=== PATIENT | male | born 1960 | race Two or more races ===

== ENCOUNTER 2020-07-23 09:16 | Emergency (ER) | payer SELFPAY ==
[2020-07-23 09:39] VITALS: BP 142/92; PULSE 82; RESP 16; TEMP 36.6; O2SAT 99; BMI 28.0
--- NOTE | 2020-07-23 10:00 | XR_ITS ---
EXAMINATION: XR SHOULDER, RIGHT CLINICAL INFORMATION: Right shoulder pain. COMPARISON: None TECHNIQUE: AP external rotation, Grashey, scapular Y, and axillary views of the right shoulder. FINDINGS: Mild to moderate right acromioclavicular degenerative joint changes are seen. There is normal joint alignment. The right glenohumeral joint is intact. The soft tissues are unremarkable. XR/XR shoulder RT min 2V IMPRESSION: Mild to moderate right acromioclavicular degenerative joint changes.
--- NOTE | 2020-07-23 10:07 | ED_ITS ---
HPI - Extremity Problem General Chief complaint: Extremity Injury, Upper Stated complaint: shoulder pain Time Seen by Provider: 07/23/20 09:56 Source: patient Mode of arrival: ambulatory Limitations: no limitations History of Present Illness HPI Narrative: 60yoM c No Sig PMHx presenting to the ED c c/o Atraumatic right shoulder pain for approximately 1 year after being bit by a tick. Reports he never followed up with a primary care provider or any healthcare provider after he was bit by the tick. Reports he has been having body aches all over his body and is concerned for Lyme disease and is requesting a Lyme titer at this time. Denies any additional complaints or concerns at this time. Related Data Previous Rx's Medication Instructions Recorded cyclobenzaprine 10 mg PO TID PRN #10 tab 07/23/20 doxycycline monohydrate 100 mg PO BID 14 Days #28 cap 07/23/20 naproxen 500 mg PO BID PRN #10 tab 07/23/20 oxycodone-acetaminophen [Percocet] 1 tab PO Q6H PRN #10 tab 07/23/20 Allergies Allergy/AdvReac Type Severity Reaction Status Date / Time No Known Allergies Allergy Unverified 05/22/20 14:54 Review of Systems Review of Systems: Constitutional : No Weight loss, No Fever, No Chills, No Night Sweats, No Fatigue Cardiovascular : No Chest Pain, No SOB Respiratory : No Cough, No Sputum, No Wheezing Gastrointestinal : No Nausea, No Vomiting, No abdominal Pain Genitourinary : No Dysuria Musculoskeletal : + joint pain, No Myalgias, No Joint Swelling Skin : No Skin Lesions, No rash Neuro : No Weakness, No Paresthesias, No Dizziness, No Headache Psych : No Anxiety/Panic, No Depression, No SI/HI/AH/VH, No Social Issues, Heme/Lymph: No Lymphadenopathy Endocrine : No Polyuria, No Polydipsia, No Temperature Intolerance Yes all other systems are reviewed and are negative [facility] Past Medical History Attestation statement: The following information was validated with the patient. Social History Social History Advance Directives: No Advance Directives Information Provided: Yes Physical Exam Vital Signs: Vital Signs: Last Vital Signs Temp 97.8 F 07/23/20 09:39 Pulse 82 07/23/20 09:39 Resp 16 11/18/20 09:39 BP 142/92 H 07/23/20 09:39 Pulse Ox 99 07/23/20 09:39 Body Mass Index 28.0 vital signs have been reviewed as normal and appeared to be correct. Blood pressure normal. Heart rate normal. Respiration rate normal. Temperature normal. Oxygen saturation normal. Appearance: Alert. Oriented X3. No acute distress. Head: Normal external exam. Normocephalic. Eyes: PERRLA. EOMI. Conjunctiva and sclera normal. Eyelids normal. ENT: Pharynx normal. Uvula midline. Moist mucous membranes. Neck: Normal inspection. Neck supple. FROM. No adenopathy. No meningeal signs. CVS: Normal heart rate and rhythm. Heart sound normal. No murmurs noted. Pulses normal throughout. Respiratory: No respiratory distress. Painless inspiration. Breath sounds normal. No wheezes/rales/rhonchi noted. Chest nontender. No accessory muscle usage noted or decreased air movement noted. Back: Full range of motion noted. Skin: Skin warm and dry. Normal skin color. Normal skin turgor. No rashes/lesions/lacerations noted. Extremities: TTP of right shoulder posterior aspect and scapular. Patient has full range of motion. No obvious deformities. No extremity edema noted. No rashes /lesions/induration/fluctuance or signs of infection noted. Extremities exhibit normal range of motion. All other Extremities nontender. Neuro: Oriented X 3. No motor deficit. No sensory deficit. Reflexes normal. Course Course Course Narrative: 10am - 60yoM c No Sig PMHx presenting to the ED c c/o Atraumatic right shoulder pain for approximately 1 year after being bit by a tick. Reports he never followed up with a primary care provider or any healthcare provider after he was bit by the tick. - Plan: CBC, BMP, Lyme titer and xray of right shoulder/scapular. Then re- evaluate. MDM - Extremity (Nontraumatic) Medical Records Attestation: I reviewed the patient's medical records. Lab Data Attestation: I reviewed the patient's lab results. Result diagrams: 07/23/20 10:13 07/23/20 10:13 Labs: Lab Results 07/23/20 07/23/20 Range/Units 10:13 10:13 WBC 5.4 (4.8-10.8) X10*3/uL RBC 5.14 (4.60-5.80) X10*6/uL Hgb 16.1 (14.0-18.0) g/dl Hct 46.7 (42-52) % MCV 90.9 (80-98) fL MCH 31.3 (27.0-33.0) pg MCHC 34.5 (31.0-36.0) g/dl RDW 11.9 (11.0-16.0) % Plt Count 259 (160-400) X10*3/uL MPV 8.6 L (9.4-12.4) fL Immature Gran % (Auto) 0.2 (0.0-0.4) % Neut % (Auto) 46.3 (45-73) % Lymph % (Auto) 36.5 (20-40) % [place] % (Auto) 8.2 (2-11) % Eos % (Auto) 8.2 H (0-4) % Baso % (Auto) 0.6 (0-2) % Lymph # (Auto) 2.0 (1.2-4.9) X10*3/uL [place] # (Auto) 0.4 (0.1-1.2) X10*3/uL Eos # (Auto) 0.4 (0.0-0.4) X10*3/uL Baso # (Auto) 0.0 (0.0-0.2) X10*3/uL Abs Immat Gran (auto) 0.01 (0.00-0.03) X10*3/uL Absolute Neuts (auto) 2.5 (2.0-8.3) X10*3/uL Absolute Nucleated RBC 0.000 (0.0-0.012) X10*3/uL Nucleated RBC % (auto) 0.0 (0.0-0.2) /100WBC Sodium 136 (135-145) mmol/L Potassium 4.6 (3.3-5.1) mmol/l Chloride 101 (96-108) mmol/L Carbon Dioxide 29 (22-29) mmol/L Anion Gap 11 L (12-20) BUN 15 (9-16) mg/dL Creatinine 0.96 (0.5-1.4) mg/dL Estim Creat Clear Calc 90.1 Estimated GFR > 60 Random Glucose 95 (60-115) mg/dL Calcium 9.4 (8.4-10.2) mg/dL Imaging Data right shoulder: Attestation: I personally reviewed and interpreted this imaging study as follows: Radiologist's impression: FINDINGS: Mild to moderate right acromioclavicular degenerative joint changes are seen. There is normal joint alignment. The right glenohumeral joint is intact. The soft tissues are unremarkable. XR/XR shoulder RT min 2V IMPRESSION: Mild to moderate right acromioclavicular degenerative joint changes. Discharge Plan Discharge Clinical Impression: Degenerative joint disease of acromioclavicular joint Tick bite Qualifiers: Encounter type: initial encounter Qualified Code(s): W57.XXXA - Bitten or stung by nonvenomous insect and other nonvenomous arthropods, initial encounter Patient Disposition: Home, Self-Care Instructions: Tick Bite (ED), Shoulder Pain (ED) Additional Instructions: I gave you a few different locations or you can call for primary care provider. Please call them today for future follow-up for your chronic shoulder pain right-sided for over a year and for any other complaints return if any new or worsening symptoms. Prescriptions: New cyclobenzaprine 10 mg tablet 10 mg PO TID PRN (Reason: muscle spasm) Qty: 10 RF: 0 oxycodone-acetaminophen [Percocet] 5-325 mg tablet 1 tab PO Q6H PRN (Reason: pain) Qty: 10 RF: 0 doxycycline monohydrate 100 mg capsule 100 mg PO BID 14 Days Qty: 28 RF: 0 naproxen 500 mg tablet 500 mg PO BID PRN (Reason: pain) Qty: 10 RF: 0 Referrals: [facility] [Provider Group] - 2 days [facility] [Provider Group] - 2 days [facility] - 2 days [facility] Group] - 2 days [facility] [Provider Group] - 2 days Print Language: Sami
[2020-07-23 10:28] LABS: MANUAL DIFF FLAG NO
[2020-07-23 10:30] LABS: Basophils Percent Auto 0.6 % (0-2); Eosinophils Absolute Auto 0.4 X10*3/uL (0.0-0.4); Eosinophils Percent Auto 8.2 % (0-4); Hematocrit 46.7 % (42-52); Hemoglobin 16.1 g/dl (14.0-18.0); Imm Gran Abs Auto 0.01 X10*3/uL (0.00-0.03); Imm Gran Pct Auto 0.2 % (0.0-0.4); Lymphocytes Percent Auto 36.5 % (20-40); Mean Corpuscular HGB Conc 34.5 g/dl (31.0-36.0); Mean Corpuscular Hemoglobin 31.3 pg (27.0-33.0); Mean Corpuscular Volume 90.9 fL (80-98); Mean Platelet Volume 8.6 fL (9.4-12.4); Monocytes Absolute Auto 0.4 X10*3/uL (0.1-1.2); Monocytes Percent Auto 8.2 % (2-11); Neutrophils Absolute Auto 2.5 X10*3/uL (2.0-8.3); Neutrophils Percent Auto 46.3 % (45-73); Platelet Count 259 X10*3/uL (160-400); Red Blood Count 5.14 X10*6/uL (4.60-5.80); Red Cell Distribution Width 11.9 % (11.0-16.0); White Blood Count 5.4 X10*3/uL (4.8-10.8)
[2020-07-23 11:07] LABS: Anion Gap 11 (12-20); Blood Urea Nitrogen 15 mg/dL (9-16); Calcium 9.4 mg/dL (8.4-10.2); Carbon Dioxide 29 mmol/L (22-29); Chloride 101 mmol/L (96-108); Creatinine Clr Calc Pharmacy 90.1; Estimated Glomerular Filt Rate > 60; Glucose Random 95 mg/dL (60-115); Potassium 4.6 mmol/l (3.3-5.1); Sodium 136 mmol/L (135-145)
[2020-07-24 08:37] LABS: Lyme Abs Screen <0.90 index
== END 2020-07-23 11:35 | disposition home or self-care (01) ==
PROVIDERS: Physician Assistant Medical; Emergency Provider Emergency Medicine
DX: S40.261A Insect bite (nonvenomous) of right shoulder, initial encounter (principal); M25.511 Pain in right shoulder; M19.011 Primary osteoarthritis, right shoulder; W57.XXXA Bitten or stung by nonvenomous insect and other nonvenomous arthropods, initial encounter; Y93.9 Activity, unspecified; Y92.9 Unspecified place or not applicable; Y99.9 Unspecified external cause status
CPT/HCPCS: 36415; 73030; 80048; 85025; 86618; 99283

== ENCOUNTER 2020-08-04 10:56 | Outpatient (REF) | payer SELFPAY | END 2020-08-04 10:57 | disposition home or self-care (01) | LOC: HO.LAB 10:56 | PROVIDERS: Visit Provider Internal Medicine | DX: Z20.828 Contact with and (suspected) exposure to other viral communicable diseases (principal) | CPT/HCPCS: C9803; U0003 ==

== ENCOUNTER 2021-06-08 08:29 | Emergency (ER) | payer OTHER, SELFPAY ==
[2021-06-08 08:48] VITALS: BP 130/89; PULSE 87; RESP 16; TEMP 36; O2SAT 98; BMI 25.9
--- NOTE | 2021-06-08 09:31 | ED.EAR ---
HPI - Ear Problem General Chief complaint: Ear Problems Stated complaint: congestion, ear pain Time Seen by Provider: 06/08/21 09:12 Source: patient Mode of arrival: ambulatory Limitations: no limitations History of Present Illness MD Complaint: ear pain and ear discharge Duration: constant Severity: moderate Relieving factors: nothing Exacerbating factors: nothing Discharge from ear: yes - clear and yes - bloody Associated symptoms ear: decreased hearing, rhinorrhea and other (Nasal drip and productive cough with yellow-colored sputum) Treatment prior to arrival: none Related Data Previous Rx's Medication Instructions Recorded cyclobenzaprine 10 mg tablet 10 mg PO TID PRN #10 tab 07/23/20 doxycycline monohydrate 100 mg 100 mg PO BID 14 Days #28 cap 07/23/20 capsule naproxen 500 mg tablet 500 mg PO BID PRN #10 tab 07/23/20 oxycodone-acetaminophen 5 mg-325 1 tab PO Q6H PRN #10 tab 07/23/20 mg tablet (Percocet) amoxicillin 875 mg-potassium 1 tab PO BID 14 Days #28 tab 06/08/21 clavulanate 125 mg tablet (Augmentin) benzonatate 100 mg capsule 100 mg PO BID PRN #14 cap 06/08/21 (Tessalon Perles) loratadine 10 mg tablet (Claritin) 10 mg PO DAILY PRN #14 tab 06/08/21 Allergies Allergy/AdvReac Type Severity Reaction Status Date / Time No Known Allergies Allergy Unverified 05/22/20 14:54 Review of Systems Review of Systems: Constitutional : No Weight loss, No Fever, No Chills, No Night Sweats, No Fatigue, No Malaise ENT/Mouth : Positive bilateral ear pain with decreased hearing and discharge from the right ear bloody discharge, positive nasal congestion/rhinorrhea with postnasal drip, Hearing loss,No Sinus Pain, No Hoarseness, No sore throat, No Swallowing Difficulty Eyes: No Eye Pain, No Swelling, No Redness, No Foreign Body, No Discharge, No Vision Changes Cardiovascular : No Chest Pain, No SOB, No Dyspnea on Exertion, No Orthopnea, No Edema, No Palpitations Respiratory : Positive cough with yellow color sputum production, No Wheezing, No Smoke Exposure, No Dyspnea Gastrointestinal : No Nausea, No Vomiting, No Diarrhea, No Constipation, No abdominal Pain, No Hematochezia, No Melena Genitourinary : no irregular bleeding, No Dysuria, No Urinary Frequency, No Hematuria, No Urinary Incontinence, No Urgency, No Flank Pain, No Urinary Flow Changes, No Hesitancy Musculoskeletal : No joint pain, No Myalgias, No Joint Swelling Skin : No Skin Lesions, No rash Neuro : No Weakness, No Numbness, No Paresthesias, No Loss of Consciousness, No Dizziness, No Headache Psych : No Anxiety/Panic, No Depression, No SI/HI/AH/VH, No Social Issues, Heme/Lymph: No Bruising, No Bleeding,No Lymphadenopathy Endocrine : No Polyuria, No Polydipsia, No Temperature Intolerance Yes all other systems are reviewed and are negative [facility] Past Medical History Attestation statement: The following information was validated with the patient. Social History Social History Advance Directives: No Physical Exam Vital Signs: Vital Signs: Last Vital Signs Temp 96.8 F 06/08/21 08:48 Pulse 87 06/08/21 08:48 Resp 16 06/08/21 08:48 BP 130/89 06/08/21 08:48 Pulse Ox 98 06/08/21 08:48 Body Mass Index 25.9 vital signs have been reviewed as normal and appeared to be correct. Blood pressure hypertensive 147/76 Heart rate normal. Respiration rate normal. Temperature normal. Oxygen saturation normal. Appearance: Alert. Oriented X3. No acute distress. Head: Normal external exam. Normocephalic. Atraumatic. Eyes: PERRLA. EOMI. Conjunctiva and sclera normal. Eyelids normal. ENT: Left tympanic membrane erythematous with bulging with fluid behind the eardrum consistent with otitis media. External ear canal of the left is normal. Right external ear canal mildly edematous with bloody discharge noted and tympanic membrane is perforated. No foreign bodies are noted. Posterior Pharynx normal. Uvula midline. Moist mucous membranes. No trismus/drooling noted. No stridor noted. No sinus pressure noted. Neck: Normal inspection. Neck supple. FROM. CVS: Normal heart rate and rhythm. Respiratory: No respiratory distress. Painless inspiration. Lungs clear to auscultation. No wheezes/rales/rhonchi. Chest nontender. No accessory muscle use is noted. Skin: Skin warm and dry. Normal skin color. Normal skin turgor. No rashes/lesions/lacerations noted. Extremities: Extremities exhibit normal range of motion. Extremities nontender. Neuro: Oriented X 3. No motor deficit. No sensory deficit. Reflexes normal. Normal steady gait. No focal neuro deficits noted. Vascular: + radial pulses/+ 2 distal pedal pulses/+2 dorsalis pedis b/l. Normal cap refill. No cyanosis noted to upper extremity nails and lower extremity toes nails. Course Course Course Narrative: Patient with bilateral otitis media with right-sided tympanic membrane perforation. No foreign bodies are noted. Will DC home with antibiotics and symptomatic treatment and referral to ear nose and throat along with instructions return if any new or worsening symptoms to follow up with primary care provider. Patient understands agrees with this plan. MDM - Ear Medical Records Attestation: I reviewed the patient's medical records. Discharge Plan Discharge Clinical Impression: Otitis media, Otitis externa, Perforation of right tympanic membrane Patient Disposition: Home, Self-Care Instructions: Otitis Externa (ED), Ruptured Eardrum (ED), Ear Infection (ED) Prescriptions: New amoxicillin-pot clavulanate [Augmentin] 875-125 mg tablet 1 tab PO BID 14 Days Qty: 28 RF: 0 benzonatate [Tessalon Perles] 100 mg capsule 100 mg PO BID PRN (Reason: cough) Qty: 14 RF: 0 loratadine [Claritin] 10 mg tablet 10 mg PO DAILY PRN (Reason: allergies) Qty: 14 RF: 0 No Action cyclobenzaprine 10 mg tablet 10 mg PO TID PRN (Reason: muscle spasm) Qty: 10 RF: 0 oxycodone-acetaminophen [Percocet] 5-325 mg tablet 1 tab PO Q6H PRN (Reason: pain) Qty: 10 RF: 0 doxycycline monohydrate 100 mg capsule 100 mg PO BID 14 Days Qty: 28 RF: 0 naproxen 500 mg tablet 500 mg PO BID PRN (Reason: pain) Qty: 10 RF: 0 Referrals: Nic Triplett [Physician] - 2 days Stand Alone Forms: Work/School Release Print Language: Amharic
== END 2021-06-08 09:42 | disposition home or self-care (01) ==
PROVIDERS: Emergency Provider Emergency Medicine
DX: H66.91 Otitis media, unspecified, right ear (principal); H60.91 Unspecified otitis externa, right ear; H72.91 Unspecified perforation of tympanic membrane, right ear; H92.03 Otalgia, bilateral; Z79.899 Other long term (current) drug therapy
CPT/HCPCS: 99283

== ENCOUNTER 2022-12-08 12:36 | Emergency (ER) | payer OTHER, SELFPAY ==
--- NOTE | ~2022-12-08 | XR_ITS ---
EXAMINATION: XR CHEST CLINICAL INFORMATION: Shortness of breath COMPARISON: None available. TECHNIQUE: 2 views of the chest were obtained. FINDINGS: The cardiac and mediastinal contours are normal. The lungs are clear. No pleural effusion or pneumothorax. Degenerative changes of the spine. XR/XR chest 2V IMPRESSION: No evidence for acute disease in the chest.
[2022-12-08 13:11] VITALS: BP 155/91; PULSE 82; RESP 18; TEMP 36.8; O2SAT 100; BMI 27.3
--- NOTE | 2022-12-08 13:11 | ED_ITS ---
HPI - SOB/Dyspnea General Chief Complaint: General Medical <RADHA Marinelli - Last Filed: 12/08/22 13:15> Stated Complaint: SOB <RADHA Marinelli - Last Filed: 12/08/22 13:15> Time Seen by Provider: 12/08/22 14:29 <RADHA Marinelli - Last Filed: 12/08/22 13:15> Source: patient <RADHA Barrios - Last Filed: 12/08/22 16:20> Mode of arrival: ambulatory <RADHA Barrios - Last Filed: 12/08/22 16:20> Limitations: no limitations <RADHA Barrios Last Filed: 12/08/22 16:20> History of Present Illness HPI Narrative: Patient is a 62 year old assigned male at presenting to the emergency department today with intermittent difficulty breathing over the past month. Patient states that he went to [place] in October and when he returned in November he began having intermittent difficulty breathing and congestion. 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 He denies any medical problems but endorses occasional seasonal allergies in the summer. Patient denies any dizziness, lightheadedness, abdominal pain, nausea, vomiting, fever, chills, blurry vision, double vision, loss of vision, chest pain, back pain, night sweats, pain with urination, increased urinary frequency, increased urinary urgency, blood in his urine or stool, syncope or a near syncopal episode, recent trauma or falls, bowel incontinence, bladder incontinence, bowel retention, blad lola retention, or any other complaints at this time. <RADHA Barrios - Last Filed: 12/08/22 16:20> MD elicited complaint: shortness of breath <RADHA Barrios - Last Filed: 12/08/22 16:20> Pertinent past history: other (seasonal allergies) <RADHA Barrios - Last Filed: 12/08/22 16:20> Onset (ago): month(s) (1) <RADHA Barrios - Last Filed: 12/08/22 16:20> Timing: intermittent <RADHA Barrios - Last Filed: 12/08/22 16:20> Exacerbating factors: warm air and other (work at [employer]) <RADHA Barrios - Last Filed: 12/08/22 16:20> Relieving factors: cool air and other (nasal spray) <RADHA Barrios - Last Filed: 12/08/22 16:20> Associated symptoms: sputum production <RADHA Barrios - Last Filed: 12/08/22 16:20> Related Data Home Medications: Previous Rx's Medication Instructions Recorded cyclobenzaprine 10 mg tablet 10 mg PO TID PRN muscle spasm #10 07/23/20 tabs doxycycline monohydrate 100 mg 100 mg PO BID 14 days #28 caps 07/23/20 capsule naproxen 500 mg tablet 500 mg PO BID PRN pain #10 tabs 07/23/20 oxycodone-acetaminophen 5 mg-325 1 tab PO Q6H PRN pain #10 tabs 07/23/20 mg tablet (Percocet) amoxicillin 875 mg-potassium 1 tab PO BID 14 days #28 tabs 06/08/21 clavulanate 125 mg tablet (Augmentin) benzonatate 100 mg capsule 100 mg PO BID PRN cough #14 caps 06/08/21 (Tessalon Perles) loratadine 10 mg tablet (Claritin) 10 mg PO DAILY PRN allergies #14 06/08/21 tabs albuterol sulfate 90 mcg/actuation 1 inh inhalation QID PRN shortness 12/08/22 aerosol inhaler (ProAir HFA) of breath or wheezing #8.5 grams prednisone 20 mg tablet 20 mg PO DAILY 7 days #7 tabs 12/08/22 <RADHA Marinelli - Last Filed: 12/08/22 13:15> Allergies/Adverse Reactions: Allergies Allergy/AdvReac Type Severity Reaction Status Date / Time No Known Allergies Allergy Unverified 05/22/20 14:54 <RADHA Marinelli - Last Filed: 12/08/22 13:15> Review of Systems Review of Systems: Yes all other systems are reviewed and are negative <RADHA Barrios - Last Filed: 12/08/22 16:20> Constitutional: Constitutional: Reports no additional constitutional complaints, Denies chills, Denies fever(s) and Denies night sweats <RADHA Barrios - Last Filed: 12/08/22 16:20> Eyes: Eyes: Reports no additional eye complaints, Denies blurry vision, Denies change in vision, Denies diplopia, Denies eye discharge, Denies loss of vision and Denies eye pain <RADHA Barrios - Last Filed: 12/08/22 16:20> ENT: Denies dizziness <RADHA Barrios Last Filed: 12/08/22 16:20> Cardiovascular: Cardiovascular: Reports no additional cardiovascular complaints, Denies chest pain, Denies lightheadedness, Denies Loss of Consciousness and Reports dyspnea (intermittently) <RADHA Barrios - Last Filed: 12/08/22 16:20> Respiratory: Respiratory: Reports no additional respiratory complaints and Reports dyspnea (intermittently) <RADHA Barrios - Last Filed: 12/08/22 16:20> Gastrointestinal: Gastrointestinal: Reports no additional gastrointestinal complaints, Denies abdominal pain, Denies melena, Denies hematochezia, Denies change in bowel habits and Denies change in stool character <RADHA Barrios - Last Filed: 12/08/22 16:20> Genitourinary: Genitourinary: Reports no additional male genitourinary complaints, Denies hematuria, Denies oliguria, Denies difficulty urinating, Denies dysuria, Denies urinary frequency, Denies urinary hesitancy, Denies urinary incontinence and Denies urinary urgency <RADHA Barrios Last Filed: 12/08/22 16:20> Musculoskeletal: Musculoskeletal: Reports no additional musculoskeletal complaints, Denies numbness and Denies tingling <RADHA Barrios - Last Filed: 12/08/22 16:20> Neurologic: Denies dizziness, Denies loss of vision, Denies numbness and Denies tingling <RADHA Barrios Last Filed: 12/08/22 16:20> Psychiatric: Psychiatric: Reports no additional psychiatric complaints <RADHA Barrios - Last Filed: 12/08/22 16:20> Endocrine: Endocrine: Reports no additional endocrine complaints <RADHA Barrios Last Filed: 12/08/22 16:20> Hematologic/Lymphatic: Hematologic/Lymphatic: Reports no additional hematologic/lymphatic complaints <RADHA Barrios - Last Filed: 01/25 16:20> Allergic/Immunologic: Allergic/Immunologic: Reports no additional allergic/immunologic complaints <RADHA Barrios - Last Filed: 12/08/22 16:20> PMFSH Past Medical History Attestation statement: The following information was validated with the patient. <ARDHA Barrios - Last Filed: 12/08/22 16:20> Source: old records reviewed and nursing notes reviewed <RADHA Barrios - Last Filed: 12/08/22 16:20> Social History Social History: Social History Advance Directives: No Advance Directives Information Provided: Yes <RADHA Marinelli - Last Filed: 12/08/22 13:15> Physical Exam Vital Signs: Vital Signs: Last Vital Signs Temp 97.8 F 12/08/22 15:59 Pulse 72 12/08/22 15:59 Resp 16 12/08/22 15:59 BP 146/91 H 12/08/22 15:59 Pulse Ox 97 12/08/22 15:59 O2 Del Method Room Air 12/08/22 15:59 BMI result Body Mass Index 27.3 <RADHA Marinelli - Last Filed: 12/08/22 13:15> Vital Signs: Last Vital Signs Temp 97.8 F 12/08/22 15:59 Pulse 72 12/08/22 15:59 Resp 16 12/08/22 15:59 BP 146/91 H 12/08/22 15:59 Pulse Ox 97 12/08/22 15:59 O2 Del Method Room Air 12/08/22 15:59 BMI result Body Mass Index 27.3 <RADHA Barrios - Last Filed: 12/08/22 16:20> Const: General: cooperative, no acute distress, alert and awake <RADHA Barrios - Last Filed: 12/08/22 16:20> Nutritional Appearance: well nourished <RADHA Barrios - Last Filed: 12/08/22 16:20> Orientation/consciousness: patient oriented x3 <RADHA Barrios - Last Filed: 12/08/22 16:20> Limitations: no limitations <Harriet Reardon [facility] Last Filed: 12/08/22 16:20> HEENT: Head: Yes normal to inspection and Yes atraumatic <Harriet Reardon [facility] Last Filed: 12/08/22 16:20> Ears: hearing grossly normal bilaterally and external ears normal <Harriet Reardon [facility] Last Filed: 12/08/22 16:20> General nose exam: Normal external nose present, Normal nares present, No nasal polyps present, Normal nasal mucous membranes and turbinates present, Normal septum present and No nasal discharge present <Harriet Reardon [facility] Last Filed: 12/08/22 16:20> Face and sinus: Yes normal facial exam, Yes sinuses nontender and Yes face symmetric <Harriet Reardon [facility] Last Filed: 12/08/22 16:20> Mouth: Normal oral and palatal mucosa present, no drooling and no muffled voice <Harriet Reardon [facility] Last Filed: 12/08/22 16:20> Eyes: General: appearance normal, both eyes and all related structures <Harriet Reardon [facility] Last Filed: 12/08/22 16:20> Periorbital: periorbital findings normal <Harriet Reardon [facility] Last Filed: 12/08/22 16:20> Eyelids: Yes eyelids normal <Harriet Reardon [facility] Last Filed: 12/08/22 16:20> Conjunctivae: conjunctivae normal <Harriet Reardon [facility] Last Filed: 12/08/22 16:20> Pupils: Equal, round and reactive pupils present <Harriet Reardon [facility] Last Filed: 12/08/22 16:20> EOM: EOMs intact bilaterally <Harriet Reardon [facility] Last Filed: 12/08/22 16:20> Neck: Neck: Yes normal visual inspection, Yes full ROM and Yes no lymphadenopathy <RADHA Barrios Last Filed: 12/08/22 16:20> Chest: Chest palpation & inspection: normal inspection of the chest <RADHA Barrios Last Filed: 12/08/22 16:20> Resp: Effort & Inspection: normal respiratory effort and able to speak in complete sentences <RADHA Barrios - Last Filed: 12/08/22 16:20> Auscultation: clear to auscultation bilaterally, no crackles, no rales, no rhonchi and no wheezes <Harriet Acostasunday CT - Last Filed: 12/08/22 16:20> Cardio: Rate: regular rate <Harriet Acostasunday [facility] Last Filed: 12/08/22 16:20> Rhythm: regular rhythm <Harriet Acostasunday CT - Last Filed: 12/08/22 16:20> Heart sounds: S1 normal heart sound present, S2 normal heart sound present, no gallops, no murmurs and no rubs <Harriet Acostasunday CT - Last Filed: 12/08/22 16:20> GI: Inspection: Yes normal to inspection <Harrietgucci Acostasunday CT - Last Filed: 12/08/22 16:20> Neuro: General: patient oriented x3 <Harrietgucci Acostasunday [facility] Last Filed: 12/08/22 16:20> Cranial nerves: Yes Equal, round and reactive pupils present <Harriet Acostasunday [facility] Last Filed: 12/08/22 16:20> Cognition (Neuro): normal cognition <Harriet Acostasunday [facility] Last Filed: 12/08/22 16:20> Motor exam (neuro): 5/5 motor strength present throughout <Harriet Acostasunday [facility] Last Filed: 12/08/22 16:20> Sensory Exam: Normal double simultaneous stimulation for sensation <Harrietgucci Acostasunday [facility] Last Filed: 12/08/22 16:20> Coordination: [id number] test normal <Harrietgucci Acostasunday [facility] Last Filed: 12/08/22 16:20> Extrem: General: Yes normal to inspection, Yes full ROM and Yes capillary refill normal <Harriet Acostasunday CT - Last Filed: 12/08/22 16:20> Psych: Appearance: grossly normal <Harriet RADHA Reardon - Last Filed: 12/08/22 16:20> Mental Status: mental status grossly normal <Harriet Alexys PA Last Filed: 12/08/22 16:20> Affect: normal affect <RADHA Barrios Last Filed: 12/08/22 16:20> Attitude: cooperative <RADHA Barrios Last Filed: 12/08/22 16:20> Thought process: Normal thought process present <RADHA Barrios Last Filed: 12/08/22 16:20> Thought content: Normal thought content present <RADHA Barrios Last Filed: 12/08/22 16:20> Insight: Good insight present (Psych) <RADHA Barrios Last Filed: 12/08/22 16:20> Course Course Course Narrative: RME - 62 yo male with history of depression/anxiety who presents to the ER for evaluation of worsening difficulty breathing for the last 1 month. 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 Has chest pain when he has difficulty breathing. No history of asthma or COPD. Non-smoker VSS in triage. Lungs clear in triage, speaking in complete sentences. Plan for CXR, EKG and lab workup. <RADHA Marinelli - Last Filed: 12/08/22 13:15> Medical Decision Making Medical Decision Making [facility] Narrative: Patient is a 62 year old assigned male at with a history of seasonal allergies presenting to the emergency department today with intermittent difficulty breathing for the past month. Patient's physical exam was unre markable. Patient's chest x-ray showed no acute process. I explained my physical exam findings as well as all test results to the patient. I answered all questions asked by the patient. I stressed the importance of the patient taking his medication as prescribed. I stressed the importance of the patient following up with his primary care provider. I stressed the importance of the patient returning to the emergency department immediately if his symptoms were to worsen or if he were to develop any dizziness, shortness of breath, difficulty breathing, chest pain, blurry vision, loss of vision, nausea, vomiting, abdominal pain, fever, chills, back pain, or any other complaints. Patient verbalized agreement and understanding with this treatment plan and discharge. <RADHA Barrios Last Filed: 12/08/22 16:20> Differential Diagnosis Differential Diagnoses: The differential diagnosis associated with the presentation includes <RADHA Barrios Last Filed: 12/08/22 16:20> allergies, asthma <RADHA Barrios Last Filed: 12/08/22 16:20> Lab Data [facility] Lab Attestation statement: I reviewed the patient's lab results. <RADHA Barrios - Last Filed: 12/08/22 16:20> Result Diagrams: 12/08/22 13:24 12/08/22 13:24 <RADHA Marinelli - Last Filed: 12/08/22 13:15> Labs: Lab Results 12/08/22 12/08/22 12/08/22 Range/Units 13:24 13:24 13:24 WBC 5.8 (4.8-10.8) X10*3/uL RBC 5.44 (4.60-5.80) X10*6/uL Hgb 16.8 (14.0-18.0) g/dl Hct 49.5 (42.0-52.0) % MCV 91.0 (80.0-98.0) fL MCH 30.9 (27.0-33.0) pg MCHC 33.9 (31.0-36.0) g/dl RDW 12.2 (11.0-16.0) % Plt Count 276 (160-400) X10*3/uL MPV 8.4 L (9.4-12.4) fL Immature Gran % (Auto) 0.2 (0.0-0.4) % Neut % (Auto) 52.5 (45-73) % Lymph % (Auto) 33.6 (20-40) % Scott % (Auto) 6.8 (2-11) % Eos % (Auto) 6.4 H (0-4) % Baso % (Auto) 0.5 (0-2) % Lymph # (Auto) 1.9 (1.2-4.9) X10*3/uL Scott # (Auto) 0.4 (0.1-1.2) X10*3/uL Eos # (Auto) 0.4 (0.0-0.4) X10*3/uL Baso # (Auto) 0.0 (0.0-0.2) X10*3/uL Abs Immat Gran (auto) 0.01 (0.00-0.03) X10*3/uL Absolute Neuts (auto) 3.0 (2.0-8.3) x10*3/uL Absolute Nucleated RBC 0.000 (0.0-0.012) X10*3/uL Nucleated RBC % (auto) 0.0 (0.0-0.2) /100WBC Sodium 142 (135-145) mmol/L Potassium 4.6 (3.3-5.1) mmol/L Chloride 103 (96-108) mmol/L Carbon Dioxide 31 H (22-29) mmol/L Anion Gap 13 (12-20) BUN 19 H (9-16) mg/dL Creatinine 1.01 (0.5-1.4) mg/dL Estim Creat Clear Calc 76.8 Estimated GFR > 60 Random Glucose 98 (60-115) mg/dL Calcium 10.1 D (8.4-10.2) mg/dL Magnesium 2.2 (1.6-2.6) mg/dL Total Bilirubin 1.1 H (0.0-1.0) mg/dL Direct Bilirubin 0.2 (0.0-0.5) mg/dL AST 20 (5-37) U/L ALT 13 (0-40) U/L Alkaline Phosphatase 83 (39-117) U/L Troponin I High Sens (<3.5-35.0) ng/L B-Natriuretic Peptide < 10 (<100) pg/mL Total Protein 7.6 (6.5-8.0) g/dL Albumin 4.5 (3.5-5.0) g/dL 12/08/22 Range/Units 13:24 WBC (4.8-10.8) X10*3/uL RBC (4.60-5.80) X10*6/uL Hgb (14.0-18.0) g/dl Hct (42.0-52.0) % MCV (80.0-98.0) fL MCH (27.0-33.0) pg MCHC (31.0-36.0) g/dl RDW (11.0-16.0) % Plt Count (160-400) X10*3/uL MPV (9.4-12.4) fL Immature Gran % (Auto) (0.0-0.4) % Neut % (Auto) (45-73) % Lymph % (Auto) (20-40) % Scott % (Auto) (2-11) % Eos % (Auto) (0-4) % Baso % (Auto) (0-2) % Lymph # (Auto) (1.2-4.9) X10*3/uL Scott # (Auto) (0.1-1.2) X10*3/uL Eos # (Auto) (0.0-0.4) X10*3/uL Baso # (Auto) (0.0-0.2) X10*3/uL Abs Immat Gran (auto) (0.00-0.03) X10*3/uL Absolute Neuts (auto) (2.0-8.3) x10*3/uL Absolute Nucleated RBC (0.0-0.012) X10*3/uL Nucleated RBC % (auto) (0.0-0.2) /100WBC Sodium (135-145) mmol/L Potassium (3.3-5.1) mmol/L Chloride (96-108) mmol/L Carbon Dioxide (22-29) mmol/L Anion Gap (12-20) BUN (9-16) mg/dL Creatinine (0.5-1.4) mg/dL Estim Creat Clear Calc Estimated GFR Random Glucose (60-115) mg/dL Calcium (8.4-10.2) mg/dL Magnesium (1.6-2.6) mg/dL Total Bilirubin (0.0-1.0) mg/dL Direct Bilirubin (0.0-0.5) mg/dL AST (5-37) U/L ALT (0-40) U/L Alkaline Phosphatase (39-117) U/L Troponin I High Sens < 2.7 (<3.5-35.0) ng/L B-Natriuretic Peptide (<100) pg/mL Total Protein (6.5-8.0) g/dL Albumin (3.5-5.0) g/dL <RADHA Marinelli - Last Filed: 12/08/22 13:15> Lab Results 12/08/22 12/08/22 12/08/22 Range/Units 13:24 13:24 13:24 WBC 5.8 (4.8-10.8) X10*3/uL RBC 5.44 (4.60-5.80) X10*6/uL Hgb 16.8 (14.0-18.0) g/dl Hct 49.5 (42.0-52.0) % MCV 91.0 (80.0-98.0) fL MCH 30.9 (27.0-33.0) pg MCHC 33.9 (31.0-36.0) g/dl RDW 12.2 (11.0-16.0) % Plt Count 276 (160-400) X10*3/uL MPV 8.4 L (9.4-12.4) fL Immature Gran % (Auto) 0.2 (0.0-0.4) % Neut % (Auto) 52.5 (45-73) % Lymph % (Auto) 33.6 (20-40) % Scott % (Auto) 6.8 (2-11) % Eos % (Auto) 6.4 H (0-4) % Baso % (Auto) 0.5 (0-2) % Lymph # (Auto) 1.9 (1.2-4.9) X10*3/uL Scott # (Auto) 0.4 (0.1-1.2) X10*3/uL Eos # (Auto) 0.4 (0.0-0.4) X10*3/uL Baso # (Auto) 0.0 (0.0-0.2) X10*3/uL Abs Immat Gran (auto) 0.01 (0.00-0.03) X10*3/uL Absolute Neuts (auto) 3.0 (2.0-8.3) x10*3/uL Absolute Nucleated RBC 0.000 (0.0-0.012) X10*3/uL Nucleated RBC % (auto) 0.0 (0.0-0.2) /100WBC Sodium 142 (135-145) mmol/L Potassium 4.6 (3.3-5.1) mmol/L Chloride 103 (96-108) mmol/L Carbon Dioxide 31 H (22-29) mmol/L Anion Gap 13 (12-20) BUN 19 H (9-16) mg/dL Creatinine 1.01 (0.5-1.4) mg/dL Estim Creat Clear Calc 76.8 Estimated GFR > 60 Random Glucose 98 (60-115) mg/dL Calcium 10.1 D (8.4-10.2) mg/dL Magnesium 2.2 (1.6-2.6) mg/dL Total Bilirubin 1.1 H (0.0-1.0) mg/dL Direct Bilirubin 0.2 (0.0-0.5) mg/dL AST 20 (5-37) U/L ALT 13 (0-40) U/L Alkaline Phosphatase 83 (39-117) U/L Troponin I High Sens (<3.5-35.0) ng/L B-Natriuretic Peptide < 10 (<100) pg/mL Total Protein 7.6 (6.5-8.0) g/dL Albumin 4.5 (3.5-5.0) g/dL 12/08/22 Range/Units 13:24 WBC (4.8-10.8) X10*3/uL RBC (4.60-5.80) X10*6/uL Hgb (14.0-18.0) g/dl Hct (42.0-52.0) % MCV (80.0-98.0) fL MCH (27.0-33.0) pg MCHC (31.0-36.0) g/dl RDW (11.0-16.0) % Plt Count (160-400) X10*3/uL MPV (9.4-12.4) fL Immature Gran % (Auto) (0.0-0.4) % Neut % (Auto) (45-73) % Lymph % (Auto) (20-40) % Scott % (Auto) (2-11) % Eos % (Auto) (0-4) % Baso % (Auto) (0-2) % Lymph # (Auto) (1.2-4.9) X10*3/uL Scott # (Auto) (0.1-1.2) X10*3/uL Eos # (Auto) (0.0-0.4) X10*3/uL Baso # (Auto) (0.0-0.2) X10*3/uL Abs Immat Gran (auto) (0.00-0.03) X10*3/uL Absolute Neuts (auto) (2.0-8.3) x10*3/uL Absolute Nucleated RBC (0.0-0.012) X10*3/uL Nucleated RBC % (auto) (0.0-0.2) /100WBC Sodium (135-145) mmol/L Potassium (3.3-5.1) mmol/L Chloride (96-108) mmol/L Carbon Dioxide (22-29) mmol/L Anion Gap (12-20) BUN (9-16) mg/dL Creatinine (0.5-1.4) mg/dL Estim Creat Clear Calc Estimated GFR Random Glucose (60-115) mg/dL Calcium (8.4-10.2) mg/dL Magnesium (1.6-2.6) mg/dL Total Bilirubin (0.0-1.0) mg/dL Direct Bilirubin (0.0-0.5) mg/dL AST (5-37) U/L ALT (0-40) U/L Alkaline Phosphatase (39-117) U/L Troponin I High Sens < 2.7 (<3.5-35.0) ng/L B-Natriuretic Peptide (<100) pg/mL Total Protein (6.5-8.0) g/dL Albumin (3.5-5.0) g/dL <RADHA Barrios - Last Filed: 12/08/22 16:20> Independent Interpretation I performed an independent interpretation of an: Plain X-Ray <RADHA Barrios - Last Filed: 12/08/22 16:20> Interpretation: My interpretation is in agreement with the radiologist's impression of this imaging study. EXAMINATION: XR CHEST CLINICAL INFORMATION: Shortness of breath COMPARISON: None available. TECHNIQUE: 2 views of the chest were obtained. FINDINGS: The cardiac and mediastinal contours are normal. The lungs are clear. No pleural effusion or pneumothorax. Degenerative changes of the spine. XR/XR chest 2V IMPRESSION: No evidence for acute disease in the chest. Dictated By: Patsy Nelson MD Signed By: Electronically signed by Patsy Nelson MD 12/08/22 1538 <RADHA Barrios - Last Filed: 12/08/22 16:20> Discharge Plan Discharge Clinical Impression: Reactive airway disease <RADHA Marinelli - Last Filed: 12/08/22 13:15> Patient Disposition: Home, Self-Care <RADHA Marinelli - Last Filed: 12/08/22 13:15> Instructions: How Your Lungs Work (ED) <RADHA Marinelli - Last Filed: 12/08/22 13:15> Additional Instructions: Follow up with your primary care provider. Return to the emergency department immediately if your symptoms worsen or if you develop any dizziness, shortness of breath, difficulty breathing, chest pain, blurry vision, loss of v ision, nausea, vomiting, abdominal pain, fever, chills, back pain, or any other complaints. <RADHA Marinelli - Last Filed: 12/08/22 13:15> Prescriptions: New prednisone 20 mg tablet 20 mg PO DAILY 7 Days Qty: 7 0RF albuterol sulfate [ProAir HFA] 90 mcg/actuation HFA aerosol inhaler 1 inh inhalation QID PRN (Reason: shortness of breath or wheezing) Qty: 8.5 0RF No Action cyclobenzaprine 10 mg tablet 10 mg PO TID PRN (Reason: muscle spasm) Qty: 10 0RF oxycodone-acetaminophen [Percocet] 5-325 mg tablet 1 tab PO Q6H PRN (Reason: pain) Qty: 10 0RF doxycycline monohydrate 100 mg capsule 100 mg PO BID 14 Days Qty: 28 0RF naproxen 500 mg tablet 500 mg PO BID PRN (Reason: pain) Qty: 10 0RF amoxicillin-pot clavulanate [Augmentin] 875-125 mg tablet 1 tab PO BID 14 Days Qty: 28 0RF benzonatate [Tessalon Perles] 100 mg capsule 100 mg PO BID PRN (Reason: cough) Qty: 14 0RF loratadine [Claritin] 10 mg tablet 10 mg PO DAILY PRN (Reason: allergies) Qty: 14 0RF <RADHA Marinelli - Last Filed: 12/08/22 13:15> Referrals: [facility] [place] Family Medicine [Provider Group] (Call to establish and follow up with a primary care provider. If you already have a primary care provider, please follow up with them.) [facility] [place] Primary Care, Ryan [Provider Group] (Call to establish and follow up with a primary care provider. If you already have a primary care provider, please follow up with them.) [facility] [place] Primary Care,Sukhdeep [Provider Group] (Call to establish and follow up with a primary care provider. If you already have a primary care provider, please follow up with them.) <RADHA Marinelli - Last Filed: 12/08/22 13:15> Stand Alone Forms: Work/School Release <RADHA Marinelli - Last Filed: 12/08/22 13:15> Print Language: Grenadian <RADHA Marinelli - Last Filed: 12/08/22 13:15>
--- NOTE | 2022-12-08 13:12 | ECG_ITS ---
Test Reason : sob Blood Pressure : / mmHG Vent. Rate : 065 BPM Atrial Rate : 065 BPM P-R Int : 158 ms QRS Dur : 076 ms QT Int : 374 ms P-R-T Axes : 046 023 039 degrees QTc Int : 388 ms Normal sinus rhythm Normal ECG When compared with ECG of 26-SEP-2012 10:50, No significant change was found Referred By: Natalia Stringer Electronically Signed By:AUGUSTUS BRUNO MD
[2022-12-08 13:33] LABS: MANUAL DIFF FLAG NO
[2022-12-08 13:36] LABS: Basophils Percent Auto 0.5 % (0-2); Eosinophils Absolute Auto 0.4 X10*3/uL (0.0-0.4); Eosinophils Percent Auto 6.4 % (0-4); Hematocrit 49.5 % (42.0-52.0); Hemoglobin 16.8 g/dl (14.0-18.0); Imm Gran Abs Auto 0.01 X10*3/uL (0.00-0.03); Imm Gran Pct Auto 0.2 % (0.0-0.4); Lymphocytes Absolute Auto 1.9 X10*3/uL (1.2-4.9); Lymphocytes Percent Auto 33.6 % (20-40); Mean Corpuscular HGB Conc 33.9 g/dl (31.0-36.0); Mean Corpuscular Hemoglobin 30.9 pg (27.0-33.0); Mean Platelet Volume 8.4 fL (9.4-12.4); Monocytes Absolute Auto 0.4 X10*3/uL (0.1-1.2); Monocytes Percent Auto 6.8 % (2-11); Neutrophils Percent Auto 52.5 % (45-73); Platelet Count 276 X10*3/uL (160-400); Red Blood Count 5.44 X10*6/uL (4.60-5.80); Red Cell Distribution Width 12.2 % (11.0-16.0); White Blood Count 5.8 X10*3/uL (4.8-10.8)
[2022-12-08 13:49] LABS: Alanine Aminotransferase 13 U/L (0-40); Albumin Level 4.5 g/dL (3.5-5.0); Alkaline Phosphatase 83 U/L (39-117); Anion Gap 13 (12-20); Aspartate Amino Transferase 20 U/L (5-37); Bilirubin Direct 0.2 mg/dL (0.0-0.5); Bilirubin Total 1.1 mg/dL (0.0-1.0); Blood Urea Nitrogen 19 mg/dL (9-16); Calcium 10.1 mg/dL (8.4-10.2); Carbon Dioxide 31 mmol/L (22-29); Chloride 103 mmol/L (96-108); Creatinine Clr Calc Pharmacy 76.8; Estimated Glomerular Filt Rate > 60; Glucose Random 98 mg/dL (60-115); Magnesium 2.2 mg/dL (1.6-2.6); Potassium 4.6 mmol/L (3.3-5.1); Sodium 142 mmol/L (135-145); Total Protein 7.6 g/dL (6.5-8.0)
[2022-12-08 13:54] LABS: B Type Natriuretic Peptide < 10 pg/mL (<100)
[2022-12-08 13:57] LABS: Troponin-I High Sensitivity < 2.7 ng/L (<3.5-35.0)
[2022-12-08 15:59] VITALS: BP 146/91; PULSE 72; RESP 16; TEMP 36.6; O2SAT 97
== END 2022-12-08 16:34 | disposition home or self-care (01) ==
PROVIDERS: Physician Assistant; Emergency Provider Emergency Medicine Emergency Medical Services
DX: J45.909 Unspecified asthma, uncomplicated (principal); R06.02 Shortness of breath
CPT/HCPCS: 36415; 71046; 80048; 80076; 83735; 83880; 84484; 85025; 93005; 99283; 99284

== ENCOUNTER 2024-09-27 11:24 | Emergency (ER) | payer OTHER, SELFPAY ==
--- NOTE | ~2024-09-27 | XR_ITS ---
EXAMINATION: XR HAND 3 OR MORE VIEWS LEFT HISTORY: nail gun injury COMPARISON: There are no prior studies available for comparison. FINDINGS: Three views of the left hand are submitted. Osseous mineralization is normal. There are tiny osseous densities adjacent to the ulnar aspects of the bases of the 2nd and 3rd proximal phalanges which could represent tiny fracture fragments. The bones are otherwise intact. There is no dislocation. The joint spaces are preserved. The soft tissues are unremarkable. There is no radiopaque foreign body. XR/XR hand LT min 3V IMPRESSION: Possible tiny fracture fragments adjacent to the bases of the 2nd and 3rd rocks multiple phalanges. Clinical correlation is recommended. Electronically signed by: Gennaro Bryan MD 09/27/2024 12:57 PM EST
[2024-09-27 12:31] VITALS: BP 158/92; PULSE 91; RESP 16; TEMP 36.1; O2SAT 99; BMI 27.6
--- NOTE | 2024-09-27 12:32 | ED_ITS ---
HPI - General Adult General Chief complaint: Extremity Injury, Upper Stated complaint: nail in l hand at work Time Seen by Provider: 09/27/24 14:41 Source: patient Mode of arrival: ambulatory Limitations: no limitations History of Present Illness ED Provider: Harriet Reardon PA-C HPI narrative: Patient is a 64 year old assigned male at with no reported medical history presenting to the emergency department today with left hand pain after accidentally shooting his hand with a nail gun and removing the nail. Patient states that he was at work when he accidentally shot his left hand with a nail gun. Patient states that he immediately removed the nail but he is having pain at the base of his 2nd and 3rd fingers. Patient states that he does not know when his last tetanus shot was. Patient denies any dizziness, lightheadedness, abdominal pain, nausea, vomiting, fever, chills, blurry vision, double vision, loss of vision, chest pain, difficulty breathing, shortness of breath, back pain, night sweats, pain with urination, increased urinary frequency, increased urinary urgency, blood in his urine or stool, syncope or a near syncopal episode, bowel incontinence, bladder incontinence, or any other complaints at this time. Onset (ago): hour(s) Location: left and upper extremity Relieving factors: none Exacerbating factors: none Associated symptoms: denies other symptoms Treatments prior to arrival: other (removed nail himself) Related Data Previous Rx's ?Medication ?Instructions ?Recorded cyclobenzaprine 10 mg tablet 10 mg PO TID PRN muscle spasm #10 07/23/20 tabs doxycycline monohydrate 100 mg 100 mg PO BID 14 days #28 caps 07/23/20 capsule naproxen 500 mg tablet 500 mg PO BID PRN pain #10 tabs 07/23/20 oxycodone-acetaminophen 5 mg-325 1 tab PO Q6H PRN pain #10 tabs 07/23/20 mg tablet (Percocet) amoxicillin 875 mg-potassium 1 tab PO BID 14 days #28 tabs 06/08/21 clavulanate 125 mg tablet (Augmentin) benzonatate 100 mg capsule 100 mg PO BID PRN cough #14 caps 06/08/21 (Tessalon Perles) loratadine 10 mg tablet (Claritin) 10 mg PO DAILY PRN allergies #14 06/08/21 tabs albuterol sulfate 90 mcg/actuation 1 inh inhalation QID PRN shortness 12/08/22 aerosol inhaler (ProAir HFA) of breath or wheezing #8.5 grams prednisone 20 mg tablet 20 mg PO DAILY 7 days #7 tabs 12/08/22 amoxicillin 875 mg-potassium 1 tab PO BID 10 days #20 tabs 09/27/24 clavulanate 125 mg tablet Allergies Allergy/AdvReac Type Severity Reaction Status Date / Time No Known Allergies Allergy Verified 09/27/24 12:33 Review of Systems Constitutional: Constitutional: Reports no additional constitutional comp laints, Denies chills, Denies fever(s) and Denies night sweats Eyes: Eyes: Reports no additional eye complaints, Denies blurry vision, Denies change in vision, Denies diplopia, Denies eye discharge, Denies loss of vision and Denies eye pain ENT: Denies dizziness Cardiovascular: Cardiovascular: Reports no additional cardiovascular complaints, Denies chest pain, Denies lightheadedness, Denies Loss of Consciousness and Denies dyspnea Respiratory: Respiratory: Reports no additional respiratory complaints and Denies dyspnea Gastrointestinal: Gastrointestinal: Reports no additional gastrointestinal complaints, Denies abdominal pain, Denies melena, Denies hematochezia, Denies change in bowel habits and Denies change in stool character Genitourinary: Genitourinary: Reports no additional male genitourinary complaints, Denies hematuria, Denies oliguria, Denies difficulty urinating, Denies dysuria, Denies urinary frequency, Denies urinary hesitancy, Denies urinary incontinence and Denies urinary urgency Musculoskeletal: Musculoskeletal: Reports no additional musculoskeletal complaints, Denies numbness and Denies tingling Comments: left hand puncture wound Neurologic: Denies dizziness, Denies loss of vision, Denies numbness and Denies tingling Psychiatric: Psychiatric: Reports no additional psychiatric complaints Endocrine: Endocrine: Reports no additional endocrine complaints Hematologic/Lymphatic: Hematologic/Lymphatic: Reports no additional hematologic/lymphatic complaints Allergic/Immunologic: Allergic/Immunologic: Reports no additional allergic/immunologic complaints PMFSH Past Medical History Attestation statement: The following information was validated with the patient. Source: old records reviewed and nursing notes reviewed Social History Social History Advance Directives: No Advance Directives Information Provided: Yes Do you have a plan to hurt others: No Plan Physical Exam ED Vital Signs: Vital Signs - 24 hr 09/27/24 12:31 Temperature 97 F Pulse Rate 91 Respiratory Rate 16 Blood Pressure 158/92 H Pulse Oximetry 99 Oxygen Delivery Method Room Air BMI result Body Mass Index 27.6 Const General: cooperative, no acute distress, alert and awake Nutritional Appearance: well nourished Orientation/consciousness: patient oriented x3 Limitations: no limitations HENMT Head: Yes normal to inspection and Yes atraumatic Ears: hearing grossly normal bilaterally and external ears normal General nose exam: Normal external nose present, no nasal discharge noted and no epistaxis Face and sinus: Yes normal facial exam, No abrasion and No laceration Mouth: Normal oral and palatal mucosa present, no drooling and no muffled voice Eyes General: appearance normal, both eyes and all related structures Periorbital: periorbital findings normal Eyelids: Yes eyelids normal Conjunctivae: conjunctivae normal Pupils: Equal, round and reactive pupils present EOM: EOMs intact bilaterally Neck Neck: Yes normal visual inspection, Yes full ROM and Yes no lymphadenopathy Chest Chest palpation & inspection: normal inspection of the chest Resp Effort & Inspection: normal respiratory effort and able to speak in complete sentences GI Inspection: Yes normal to inspection Neuro General: patient oriented x3 and moves all extremities Cranial nerves: Yes Equal, round and reactive pupils present Cognition (Neuro): normal cognition Extrem Other: swelling present to the dorsal left hand small puncture wound present between the 2nd and 3rd metacarpals General: Yes full ROM and Yes capillary refill normal Psych Appearance: grossly normal Mental Status: mental status grossly normal Affect: normal affect Attitude: cooperative Thought process: Normal thought process present Thought content: Normal thought content present Insight: Good insight present (Psych) Course Course Course Narrative: RME, this is a rapid medical exam performed by Zuhair Salazar please refer to primary provider for complete H&P- 64-year-old male presents for evaluation of a puncture wound to his left hand. He accidentally shot himself in the left hand with a nail gun. He has a puncture wound around the left 2nd MCP joint of the dorsal surface. There was no exit wound. The nail has been removed. The patient's tetanus needs updating. Plan for x-rays Medications Administered Discontinued Medications Generic Name Dose Route Start Last Admin Trade Name Freq PRN Reason Stop Dose Admin Diphtheria/Tetanus/Acell Pertussis 0.5 ml 09/27/24 12:32 09/27/24 14:56 Diphth,Pertus(Acell),Tet Adult 0.5 Ml Syringe IM 09/27/24 12:33 0.5 ml .ONCE ONE Administration Procedures Orthopedic Splinting/Casting Injury #1: Side: left Upper Extremity Injury Location: hand (base of 2nd and 3rd metacarpal) Upper Extremity Immobilizer: volar splint Medical Decision Making Medical Decision Making MDM Narrative: Patient is a 64 year old assigned male at with no reported medical history presenting to the emergency department today with left hand pain after accidentally shooting his hand with a nail gun and removing the nail. Patient's physical exam was as noted in the physical exam portion of this note. Patient's left hand x-ray showed fracture fragments adjacent to the bases of the 2nd and 3rd metacarpals. I consulted with orthopedics who recommended washing out the wound, splinting the fractures, starting the patient on antibiotics, updating his tetanus, and having him follow up on an outpatient basis. I explained my physical exam findings as well as all test results to the patient. I answered all questions asked by the patient. Patient's wound was washed thoroughly without incident. Patient's left hand was splinted as noted per procedure note, without incident. Patient was brought up to date on his tetanus status. I stressed the importance of the patient taking his medication as directed (either prescribed or as the over the counter packaging recommends). I stressed the importance of the patient following up with his primary care provider and an orthopedic provider. I stressed the importance of the patient returning to the emergency department immediately if his symptoms were to worsen or if he were to develop any dizziness, shortness of breath, difficulty breathing, chest pain, blurry vision, loss of vision, nausea, vomiting, abdominal pain, fever, chills, back pain, or any other complaints. Patient verbalized agreement and understanding with this treatment plan and discharge. Differential Diagnosis Differential Diagnoses: The differential diagnosis associated with the presentation includes Hand fracture Fracture of left 2nd and 3rd metacarpals Puncture wound Admission/Observation Consideration of admission/observation: Escalation of care including admission/observation considered Patient would have been admitted to the hospital had his work up had any findings where hospital admission was appropriate and his clinical presentation warranted hospital admission. Consult Healthcare Provider Management of the patient was discussed with: Ep Tech (spoke with the orthopedic team as noted in the MDM Rationale portion of this note.) Independent Interpretation I performed an independent interpretation of an: Plain X-Ray Interpretation: My interpretation is in agreement with the radiologist's impression of this imaging study. EXAMINATION: XR HAND 3 OR MORE VIEWS LEFT HISTORY: nail gun injury COMPARISON: There are no prior studies available for comparison. FINDINGS: Three views of the left hand are submitted. Osseous mineralization is normal. There are tiny osseous densities adjacent to the ulnar aspects of the bases of the 2nd and 3rd proximal phalanges which could represent tiny fracture fragments. The bones are otherwise intact. There is no dislocation. The joint spaces are preserved. The soft tissues are unremarkable. There is no radiopaque foreign body. XR/XR hand LT min 3V IMPRESSION: Possible tiny fracture fragments adjacent to the bases of the 2nd and 3rd rocks multiple phalanges. Clinical correlation is recommended. Electronically signed by: Gennaro Bryan MD 09/27/2024 12:57 PM [facility] Dictated By: Gennaro Bryan MD Signed By: Electronically signed by Gennaro Bryan MD 09/27/24 1257 Radiology Impression Discussion of test interpretation with radiology: I have reviewed the radiologist's reading. Prescription Management I considered prescription management with: Antibiotic (patient prescribed prophylactic antibiotic per MDM Rationale portion of this note.) Discharge Plan Discharge Clinical Impression: Fracture, metacarpal Patient Disposition: Home, Self-Care Instructions: Hand Fracture (ED) Additional Instructions: Do NOT get your splint wet. Do NOT remove your splint. If you feel your fingers change in sensation, temperature, or ability to move them - you may loosen the external ALEJANDRO wraps on your splint. IF you find yourself loosening to the point of seeing the white splint material underneath - STOP and return to the ER immediately. Follow up with your primary care provider and an orthopedic provider. Take your antibiotic as prescribed. Return to the emergency department immediately if your symptoms worsen or if you develop any dizziness, shortness of breath, difficulty breathing, chest pain, blurry vision, loss of vision, nausea, vomiting, abdominal pain, fever, chills, back pain, or any other complaints. Prescriptions: New amoxicillin-pot clavulanate 875-125 mg tablet 1 tab PO BID 10 Days Qty: 20 0RF No Action cyclobenzaprine 10 mg tablet 10 mg PO TID PRN (Reason: muscle spasm) Qty: 10 0RF oxycodone-acetaminophen [Percocet] 5-325 mg tablet 1 tab PO Q6H PRN (Reason: pain) Qty: 10 0RF doxycycline monohydrate 100 mg capsule 100 mg PO BID 14 Days Qty: 28 0RF naproxen 500 mg tablet 500 mg PO BID PRN (Reason: pain) Qty: 10 0RF amoxicillin-pot clavulanate [Augmentin] 875-125 mg tablet 1 tab PO BID 14 Days Qty: 28 0RF benzonatate [Tessalon Perles] 100 mg capsule 100 mg PO BID PRN (Reason: cough) Qty: 14 0RF loratadine [Claritin] 10 mg tablet 10 mg PO DAILY PRN (Reason: allergies) Qty: 14 0RF prednisone 20 mg tablet 20 mg PO DAILY 7 Days Qty: 7 0RF albuterol sulfate [ProAir HFA] 90 mcg/actuation HFA aerosol inhaler 1 inh inhalation QID PRN (Reason: shortness of breath or wheezing) Qty: 8.5 0RF Referrals: [facility] [Provider Group] (Call to establish and follow up with an orthopedic provider.) Courtney Potts MD [Primary Care Provider] - Stand Alone Forms: Work/School Release Print Language: Divehi
[2024-09-27] MEDS: Diphth,Pertus(ACell),Tet Adult 0.5 ML SYRINGE IM (14:56)
[2024-09-27 15:27] VITALS: BP 158/92; PULSE 91; RESP 16; TEMP 36.1; O2SAT 99
== END 2024-09-27 15:27 | disposition home or self-care (01) ==
PROVIDERS: Emergency Provider Emergency Medicine; PCP Internal Medicine
DX: S62.311A Displaced fracture of base of second metacarpal bone, left hand, initial encounter for closed fracture (principal); S62.313A Displaced fracture of base of third metacarpal bone, left hand, initial encounter for closed fracture; W29.4XXA Contact with nail gun, initial encounter; M25.542 Pain in joints of left hand; Y93.9 Activity, unspecified; Y92.9 Unspecified place or not applicable; Y99.0 Civilian activity done for income or pay; Z23 Encounter for immunization
CPT/HCPCS: 29125; 73130; 90471; 90715; 99282; 99284

== ENCOUNTER → 2024-09-27 12:32 | Outpatient (BNV) | payer OTHER, SELFPAY | PROVIDERS: PCP Internal Medicine; Visit Provider Radiology Diagnostic Radiology | DX: S60.552A Superficial foreign body of left hand, initial encounter (principal); W29.4XXA Contact with nail gun, initial encounter | CPT/HCPCS: 73130 ==

== ENCOUNTER 2024-10-05 12:52 | Outpatient (REF) | payer OTHER, SELFPAY ==
--- NOTE | ~2024-10-05 | XR_ITS ---
CLINICAL HISTORY: M79.642 - Pain in left hand 3 view left hand Comparison: None Findings: No fractures or dislocations. Mild degenerative changes of the metacarpophalangeal joints diffusely. Interphalangeal joint spaces appear relatively well-maintained. No erosions. No radiopaque foreign body. IMPRESSION: 1. Mild degenerative changes greatest at the metatarsophalangeal joints. No erosions. This document has been electronically signed by: Tammy Mera MD on 10/09/2024 06:13:12
--- OUTSIDE RECORDS SUMMARY | 2024-10-05 13:08 | XMS_ITS | Encounter Summary ---
Author Organization [facility] Address [address] [place] [address] Care Team Providers Care Licensed Social Worker Name Role Phone Courtney Potts MD Primary Care Provider [phone] Encounter Details Date Type Department Care Team (Latest Contact Info) Description 10/01/2024 11:00 AM EST - 10/01/2024 11:59 PM [facility] Hospital Encounter [facility] [address] [place] [address] Acute pain of left knee Discharge Disposition: Home or Self Care Social History Tobacco Use Types Packs/Day Years Used Date Smoking Tobacco: Never Smokeless Tobacco: Never Alcohol Use Standard Drinks/Week Comments Yes 0 (1 standard drink = 0.6 oz pur e alcohol) Sex and Gender Information Value Date Recorded Sex Assigned at Not on file Gender Identity Not on file Sexual Orientation Not on file Job Start Date Occupation Industry Not on file Not on file Not on file documented as of this encounter Medications at Time of Discharge Medication Sig Dispensed Refills Start Date End Date atorvastatin (LIPITOR) 40 mg tabletIndications:Mixed hyperlipidemia,Encounter for screening for cardiovascular disorders Take 1 tablet (40 mg total) by mouth 1 (one) time each day. 90 tablet 1 10/01/2024 cholecalciferol (VITAMIN D-3) 25 mcg (1,000 unit) tabletIndications:Vitamin D deficiency Take 1 tablet (1,000 Units total) by mouth 1 (one) time each day. 90 tablet 1 10/01/2024 lidocaine (LIDODERM) 5 % patchIndications:Acute pain of right knee Apply 1 patch topically 1 (one) time each day. Remove & discard patch within 12 hours or as directed by . 10 patch 10/01/2024 documented as of this encounter Discharge Disposition Disposition Code Departure Means Destination Home or Self Care documented in this encounter Plan of Treatment Upcoming Encounters Date Type Department Care Team (Late st Contact Info) Description 10/19/2024 9:00 AM EST Consult Gastroenterology - [place] [address] [facility] [address] [facility] [address] [place] [id number] Niya Baker, GRANT [address] [facility] [address] [place] [address] documented as of this encounter Procedures Procedure Name Priority Date/Time Associated Diagnosis Comments XR KNEE 4+ VIEWS RIGHT Routine 10/01/2024 11:16 AM EST Acute pain of left knee documented in this encounter Results * XR Knee 4+ Views Right (10/01/2024 11:16 AM EST) Anatomical Region Laterality Modality Lower Extremities, Knee Right Radiogra phic Imaging 10/01/2024 8:03 PM EST Impressions 10/01/2024 8:05 PM EST Minimal degenerative changes at the patellofemoral joint. POS - [id number] -------- FINAL REPORT -------- Dictated By: Josee Rowland Dictated Date: 10/01/2024 20:03 ET Assigned Physician: Josee Rowland Reviewed and Electronically Signed By: Josee Rowland Signed Date: 10/01/2024 20:05 ET Workstation ID: [id number] Transcribed By: Self Edit Transcribed Date: 10/01/2024 20:03 ET Narrative 10/01/2024 8:05 PM EST EXAM: Right knee x-ray HISTORY: Acute right knee pain. COMPARISON: None VIEWS: ??4 views performed, AP view performed weightbearing. FINDINGS: Tricompartment joint spaces are preserved. ??Minimal posterior patellar spurring. ??Small superior patellar spur at the quadriceps attachment from enthesopathy. ??No evidence of an acute fracture or malalignment. ??No destructive bone lesion. ??No significant joint effusion. Procedure Note Josee Rowland MD - 10/01/2024 EXAM: Right knee x-ray HISTORY: Acute right knee pain. COMPARISON: None VIEWS: 4 views performed, AP view performed weightbearing. FINDINGS: Tricompartment joint spaces are preserved. Minimal posterior patellarspurring. Small superior patellar spur at the quadriceps attachment fromenthesopathy. No evidence of an acute fracture or malalignment. Nodestructive bone lesion. No significant joint effusion. IMPRESSION: Minimal degenerative changes at the patellofemoral joint. POS - [id number] -------- FINAL REPORT -------- Dictated By: Josee Rowland Dictated Date: 10/01/2024 20:03 ET Assigned Physician: Josee Rowland Reviewed and Electronically Signed By: Josee Rowland Signed Date: 10/01/2024 20:05 ET Workstation ID: [id number] Transcribed By: Self Edit Transcribed Date: 10/01/2024 20:03 ET Kendall Flores [employer]ILD[employer] DESIGN SPECIALIST IMG XR PROCEDURES documented in this encounter Visit Diagnoses Diagnosis Acute pain of left knee documented in this encounter Additional Health Concerns Assessment Noted Time PHQ-9 Depression Total Score: 0 10/01/19 25 11:00 AM EST documented as of this encounter Care Teams Licensed Social Worker Relationship Specialty Start Date End Date Courtney Potts MD [address] [place] [id number] PCP - General Internal Medicine 07/10/21 documented as of this encounter
--- OUTSIDE RECORDS SUMMARY | 2024-10-05 13:08 | XMS_ITS | Encounter Summary ---
Author Organization [facility] Address [address] [place] [address] Care Team Providers Care Window Caser Name Role Phone Courtney Potts MD Primary Care Provider [phone] Reason for Referral * Imaging (Routine) - Pending Review Specialty Diagnoses / Procedures Referred By Lorelei joe Referred To Contact Radiology Diagnoses Choking, subsequent encounter Mixed hyperlipidemia Procedures US Head Neck Soft Tissue Kendall Flores NP [address] [place] [address] Referral ID Status Reason Start Date Expiration Date V isits Requested Visits Authorized [id number] Pending Review 10/01/2024 10/01/2025 1 1 Reason for Visit * Imaging (Routine) - Pending Review Specialty Diagnoses / Procedures Referred By Lorelei joe Referred To Contact Radiology Diagnoses Choking, subsequent encounter Mixed hyperlipidemia Procedures US Head Neck Soft Tissue Kendall Flores NP [address] [place] [address] Referral ID Status Reason Start Date Expiration Date V isits Requested Visits Authorized [id number] Pending Review 10/01/2024 10/01/2025 1 1 Encounter Details Date Type Department Care Team (Latest Contact Info) Description 10/02/2024 4:52 PM EST - 10/02/2024 11:59 PM EST Hospital Encounter Radiology Department - [address] [address] Choking, subsequent encounter; Mixed hyperlipidemia Discharge Disposition: Home or Self Care Social [...] 10/19/2024 9:00 AM EST Consult Gastroenterology - [place] [address] [place] [phone] Niya Baker NP [address] [address] documented as of this encounter Procedures Procedure Name Priority Date/Time Associated Diagnosis Comments US HEAD NECK SOFT TISSUE Routine 10/02/2024 6:07 PM EST Choking, subsequent encounter Mixed hyperlipidemia documented in this encounter Results * US Head Neck Soft Tissue (10/02/2024 6:07 PM EST) Anatomical Region Laterality Modality Head and Neck Ultrasound 10/03/2024 10:0 7 AM EST Impressions 10/03/2024 10:11 AM EST Heterogeneous thyroid gland, but no discrete nodules. -------- FINAL REPORT -------- Dictated By: Charline Fleming Dictated Date: 10/03/2024 10:07 ET Assigned Physician: Charline Fleming Reviewed and Electronically Signed By: Charline Fleming Signed Date: 10/03/2024 10:11 ET Workstation ID: [id number] Transcribed By: Self Edit Transcribed Date: 10/03/2024 10:07 ET Narrative 10/03/2024 10:11 AM EST US HEAD NECK SOFT TISSUE INDICATION: Choking, sensation of lump in the throat TECHNIQUE: Ultrasound evaluation of the neck was performed with foster scale and color Doppler imaging. COMPARISON: None FINDINGS: RIGHT THYROID: Right thyroid lobe demonstrates ??heterogeneous echotexture measuring 4.6 x 1.5 x 1.4 cm. No discrete nodules. LEFT THYROID: Left thyroid lobe demonstrates ??heterogeneous echotexture measuring 4.3 x 1.5 x 1.8 cm. No discrete nodules. ISTHMUS: The isthmus measures 0.2 cm. VASCULARITY: Color doppler demonstrates normal blood flow to thyroid gland. Procedure Note Charline Fleming MD - 10/03/2024 US HEAD NECK SOFT TISSUE INDICATION: Choking, sensation of lump in the throat TECHNIQUE: Ultrasound evaluation of the neck was performed with foster scaleand color Doppler imaging. COMPARISON: None FINDINGS: RIGHT THYROID: Right thyroid lobe demonstrates heterogeneous echotexturemeasuring 4.6 x 1.5 x 1.4 cm. No discrete nodules. LEFT THYROID: Left thyroid lobe demonstrates heterogeneous echotexturemeasuring 4.3 x 1.5 x 1.8 cm. No discrete nodules. ISTHMUS: The isthmus measures 0.2 cm. VASCULARITY: Color doppler demonstrates normal blood flow to thyroidgland. IMPRESSION: Heterogeneous thyroid gland, but no discrete nodules. -------- FINAL REPORT -------- Dictated By: Charline Fleming Dictated Date: 10/03/2024 10:07 ET Assigned Physician: Charline Fleming Reviewed and Electronically Signed By: Charline Fleming Signed Date: 10/03/2024 10:11 ET Workstation ID: [id number] Transcribed By: Self Edit Transcribed Date: 10/03/2024 10:07 ET Kendall Flores [employer] MECHANIC IMG US PROCEDURES documented in this encounter Visit Diagnoses Diagnosis Choking, subsequent encounter Mixed hyperlipidemia documented in this encounter Additional Health Concerns Assessment Noted Time PHQ-9 Depression Total Score: 0 10/01/19 25 11:00 AM EST documented as of this encounter Care Teams Window Caser Relationship Specialty Start Date End Date Courtney Potts MD [address] [place] [address] PCP - General Internal Medicine 07/10/21 documented as of this encounter
--- OUTSIDE RECORDS SUMMARY | 2024-10-05 13:08 | XMS_ITS | Clinical Summary ---
Author Organization [facility] [address] [place] [address] [place] [phone] Phone Care Team Providers Care Hand Inserter Operator Name Role Phone Courtney Potts MD Primary Care Provider [phone] Allergies No known active allergies Medications Medication Sig Dispensed Refills Start Date End Date Status atorvastatin (LIPITOR) 40 mg tabletIndications:Mi xed hyperlipidemia,Encou nter for screening for cardiovascular disorders Take 1 tablet (40 mg total) by mouth 1 (one) time each day. 90 tablet 1 10/01/2024 Active cholecalciferol (VITAMIN D-3) 25 mcg (1,000 unit) tabletIndications:Vi tamin D deficiency Take 1 tablet (1,000 Units total) by mouth 1 (one) time each day. 90 tablet 1 10/01/2024 Active lidocaine (LIDODERM) 5 % patchIndications:Acu te pain of right knee Apply 1 patch topically 1 (one) time each day. Remove & discard patch within 12 hours or as directed by MD. 10 patch 10/01/2024 Active atorvastatin (LIPITOR) 40 mg tablet Take 1 tablet (40 mg total) by mouth 1 (one) time each day. 09/22/2023 5 Discontinue d(Reorder) cholecalciferol (VITAMIN D-3) 25 mcg (1,000 unit) tablet Take 1 tablet (1,000 Units total) by mouth 1 (one) time each day. 02/21/2023 5 Discontinue d(Reorder) Active Problems Problem Noted Date Diagnosed Date Vitamin D deficiency 05/05/2022 Assessment & Plan (10/01/2024 11:59 AM EST): Patient has a history of vitamin D deficiency. He reports that he has not been taking his vitamin D supplement because he ran out. A new prescription was sent to the pharmacy. Orders: cholecalciferol (VITAMIN D-3) 25 mcg (1,000 unit) tablet; Take 1 tablet (1,000 Units total) by mouth 1 (one) time each day. Hiatal hernia 05/05/2022 Hyperlipidemia 10/12/2021 Assessment & Plan (10/01/2024 11:59 AM EST): Last LDL 169. Patient reports that he stopped taking atorvastatin. After long discussion regarding Cardiovascular risk and specific lipid/LDL goals reiterated. Patient agreed to restart statin medication. Prescription refill was sent to the pharmacy. Patient is asked to be alert for persistent nausea, abdominal pain, jaundice or pronounced persistent, diffuse muscle pain. Should such symptoms occur. He is to discontinue the drug immediately and let us know. I will recheck Lipid profile today. Orders: Lipid panel with reflex to direct LDL; Future atorvastatin (LIPITOR) 40 mg tablet; Take 1 tablet (40 mg total) by mouth 1 (one) time each day. US Head Neck Soft Tissue; Future Anxiety 11/21/2014 Alcohol abuse 11/21/2014 Encounters Date Type Department Care Team Description 10/02/2024 4:52 PM EST - 10/02/2024 11:59 PM EST Hospital Encounter Radiology Department - [address] [phone] Choking, subsequent encounter; Mixed hyperlipidemia Discharge Disposition: Home or Self Care 10/01/2024 11:00 AM EST - 10/01/2024 11:59 PM EST Hospital Encounter XRAY - [address] [phone] Acute pain of left knee Discharge Disposition: Home or Self Care 10/01/2024 10:00 AM EST [facility] - [address] [phone] Kendall Flores NP Acute pain of right knee (Primary Dx); Choking, subsequent encounter; Vitamin D deficiency; Mixed hyperlipidemia; Encounter for screening for cardiovascular disorders; Encounter for screening for malignant neoplasm of prostate from Last 3 Months Immunizations Name Administration Dates Next Due Influenza Quadravalent, MDCK , 0.5ml, preservative free (Flucelvax) 6mo and older 05/27/2023,08/27/2022 Moderna SARS-CoV-2 COVID-19, mRNA, LNP-S, preservative free 01/30/2021 Tdap Tetanus diptheria acell ular pertussis (Boostrix; Adacel) 7yo and older 09/30/2016 Family History Medical History Relation Name Comments Other: Other Father age 79, no meds Breast cancer Mother Other: Other Mother age 90, no meds Other: from pneumonia, no other illness known to pt Paternal Grandfather Colon cancer Paternal Grandmother fr om colon cancer at age 87 Breast cancer Sister Relation Name Status Comments Father Mother Paternal Grandfather Paternal Grandmother Sister Social History Tobacco Use Types Packs/Day Years Used Date Smoking Tobacco: Never Smokeless Tobacco: Never Tobacco Cessation:Counseling Given: Not Answered Alcohol Use Standard Drinks/Week Comments Yes 0 (1 standard drink = 0.6 oz pur e alcohol) Sex and Gender Information Value Date Recorded Sex Assigned at Not on file Gender Identity Not on file Sexual Orientation Not on file Job Start Date Occupation Industry Not on file Not on file Not on file Obstetrics History Last Filed Vital Signs Vital Sign Reading Time Taken Comments Blood Pressure 110/74 10/01/2024 9:58 AM EST Pulse 88 10/01/2024 9:58 AM EST Temperature 36.7 ??C (98 ??F) 10/01/2024 9:58 AM EST Respiratory Rate 16 10/01/2024 9:58 AM EST Oxygen Saturation - - Inhaled Oxygen Concentration - - Weight 86.6 kg (191 lb) 10/01/2024 9:58 AM EST Height 157.5 cm (5' 2 ) 10/01/2024 9:58 AM EST Body Mass Index 34.93 10/01/2024 9:58 AM EST Plan of Treatment Upcoming Encounters Date Type Department Care Team (Late st Contact Info) Description 10/19/2024 9:00 AM EST Consult Gastroenterology - [place] [facility] [address] [facility] [address] [place] [address] Niya Baker NP [address] [place] [address] Health Maintenance Due Date Last Done Comments Social Influencers of Health Screening 08/15/2022 Depression Screening 10/01/2025 10/01/2024, 05/05/2022 Cholesterol Screening (Lipid Panel) 10/01/2029 10/01/2024, 06/17/2023 Colorectal Cancer Screening: Colonoscopy 03/05/2032 03/05/2022 DTaP,Tdap,and Td Vaccines (3 - Td or Tdap) 09/27/2034 09/27/2024, 09/30/2016 RSV Immunization Patients 60+ Years Old (1 - 1-dose 75+ series) 02/25/2036 COVID-19 Vaccine Discontinued 01/30/2021, 12/05/2020 Hepatitis C Screening Addressed 10/12/2021 Overri dden with the intention of not completing the topic Influenza Vaccine Discontinued 05/27/2023, 08/27/2022 HIB Vaccines Aged Out No longer eligi ble based on patient's age to complete this topic HIV Screening Discontinued HPV Vaccines Aged Out No longer eligi ble based on patient's age to complete this topic Hepatitis A Vaccines Discontinued Hepatitis B Vaccines Aged Out No long er eligible based on patient's age to complete this topic IPV Vaccines Aged Out No longer eligi ble based on patient's age to complete this topic MMR Vaccines Aged Out No longer eligi ble based on patient's age to complete this topic Meningococcal ACWY Vaccine Aged Out N o longer eligible based on patient's age to complete this topic Pneumococcal Vaccine: Pediatrics (0 to 5 Years) and At-Risk Patients (6 to 64 Years) Aged Out No longer eligible b ased on patient's age to complete this topic RSV Immunization Patients Under 20 months Aged Out No longer eligible b ased on patient's age to complete this topic Varicella Vaccines Aged Out No longer eligible based on patient's age to complete this topic Zoster Vaccines Discontinued Procedures Procedure Name Priority Date/Time Associated Diagnosis Comments US HEAD NECK SOFT TISSUE Routine 10/02/2024 6:07 PM EST Choking, subsequent encounter Mixed hyperlipidemia LIPID PANEL WITH REFLEX TO DIRECT LDL Routine 10/01/2024 11:39 AM EST Mixed hyperlipidemia Encounter for screening for cardiovascular disorders COMPREHENSIVE METABOLIC PANEL Routine 10/01/2024 11:39 AM EST Encounter for screening for malignant neoplasm of prostate PROSTATE SPECIFIC ANTIGEN SCREEN Routine 10/01/2024 11:39 AM EST Encounter for screening for malignant neoplasm of prostate XR KNEE 4+ VIEWS RIGHT Routine 10/01/2024 11:16 AM EST Acute pain of left knee from Last 3 Months Results * US Head Neck Soft Tissue [...] Signed Date: 10/03/2024 10:11 ET Workstation ID: [id number] Transcribed By: Self Edit Transcribed Date: 10/03/2024 [...] Signed Date: 10/03/2024 10:11 ET Workstation ID: [id number] Transcribed By: Self Edit Transcribed Date: 10/03/2024 10:07 ET Kendall Flores NP IMG US PROCEDURES * Prostate specific antigen screen (10/01/2024 11:39 AM EST) PSA 1.66 0.00 - 4.00 ng/mL LAB CHEMISTRY METHOD 10/01/2024 3:58 PM EST [facility] Blood Venous blood specimen / Unknown Venipuncture / Unknown 10/01/2024 11:39 AM EST 10/01/2024 11:39 AM EST Narrative [facility] - 10/01/2024 3:58 PM EST The Siemens Advia Centaur Chemiluminescent Immunoassay is used. Results obtained with different assay methods or kits cannot be used interchangeably. Results cannot be interpreted as absolute evidence of the presence or absence of malignant disease. Kendall Flores NP LAB BLOOD ORDERABLES [facility] [address] [place] [address], * (ABNORMAL) Lipid panel with reflex to direct LDL (10/01/2024 11:39 AM EST) Cholesterol 225(H) 0 - 200 mg/dL LAB CHEMISTRY METHOD 10/01/2024 3:57 PM [facility] Triglycerides 262(H) 0 - 150 mg/dL LAB CHEMISTRY METHOD 10/01/2024 3:57 PM [facility] HDL 48 >=40 mg/dL LAB CHEMISTRY METHOD 10/01/2024 3:57 PM [facility] LDL Calculated 125(H) 0 - 100 mg/dL LAB CHEMISTRY METHOD 10/01/2024 3:57 PM [facility] VLDL Cholesterol Thad 52.4 mg/dL LAB CHEMISTRY METHOD 10/01/2024 3:57 PM [facility] Non HDL Chol. (LDL+VLDL) 177(H) <145 mg/dL LAB CHEMISTRY METHOD 10/01/2024 3:57 PM [facility] Chol/HDL Ratio 4.7(H) 0.0 - 4.4 LAB CHEMISTRY METHOD 10/01/2024 3:57 PM [facility] Blood Venous blood specimen / Unknown Venipuncture / Unknown 10/01/2024 11:39 AM EST 10/01/2024 11:39 AM EST Kendall Flores NP LAB BLOOD ORDERABLES [facility] [address] [place] [address], * (ABNORMAL) Comprehensive metabolic panel (10/01/2024 11:39 AM EST) Pathologist [facility] Sodium 139 133 - 145 mmol/L LAB CHEMISTRY METHOD 10/01/2024 3:57 PM [facility] Potassium 4.1 3.5 - 5.5 mmol/L LAB CHEMISTRY METHOD 10/01/2024 3:57 PM [facility] Chloride 105 96 - 110 mmol/L LAB CHEMISTRY METHOD 10/01/2024 3:57 PM [facility] CO2 31 21 - 32 mmol/L LAB CHEMISTRY METHOD 10/01/2024 3:57 PM [facility] Anion Gap 3 3 - 11 LAB CHEMISTRY METHOD 10/01/2024 3:57 PM [facility] Glucose 101(H) 70 - 100 mg/dL LAB CHEMISTRY METHOD 10/01/2024 3:57 PM [facility] BUN 14 5 - 25 mg/dL LAB CHEMISTRY METHOD 10/01/2024 3:57 PM [facility] Creatinine 0.92 0.70 - 1.30 mg/dL LAB CHEMISTRY METHOD 10/01/2024 3:57 PM [facility] eGFR 93 >=60 mL/min/1. 73m2 LAB CHEMISTRY METHOD 10/01/2024 3:57 PM [facility] Comment:Calculation based on the??Chronic Kidney Disease Epidemiology Collaboration (CKD-EPI) equation refit??without adjustment for race. BUN/Creatinine Ratio 15.2 LAB CHEMISTRY METHOD 10/01/2024 3:57 PM [facility] Calcium 9.5 8.5 - 10.5 mg/dL LAB CHEMISTRY METHOD 10/01/2024 3:57 PM [facility] AST (SGOT) 18 10 - 42 unit/L LAB CHEMISTRY METHOD 10/01/2024 3:57 PM [facility] ALT (SGPT) 20 10 - 60 unit/L LAB CHEMISTRY METHOD 10/01/2024 3:57 PM [facility] Alkaline Phosphatase 80 42 - 121 unit/L LAB CHEMISTRY METHOD 10/01/2024 3:57 PM [facility] Total Protein 7.4 6.0 - 8.0 g/dL LAB CHEMISTRY METHOD 10/01/2024 3:57 PM [facility] Albumin 3.9 3.2 - 5.0 g/dL LAB CHEMISTRY METHOD 10/01/2024 3:57 PM EST [facility] Total Bilirubin 0.7 0.0 - 1.4 mg/dL LAB CHEMISTRY METHOD 10/01/2024 3:57 PM EST [facility] Blood Venous blood specimen / Unknown Venipuncture / Unknown 10/01/2024 11:39 AM EST 10/01/2024 11:39 AM EST Kendall Flores NP LAB BLOOD ORDERABLES [facility] [address] [place] [address], * XR Knee 4+ Views Right (10/01/2024 11:16 AM EST) Anatomical Region Laterality Modality Lower Extremities, Knee Right Radiogra phic Imaging 10/01/2024 8:03 PM EST Impressions 10/01/2024 8:05 PM EST Minimal degenerative changes at the patellofemoral joint. POS - [id number] -------- FINAL REPORT -------- Dictated By: Josee Rowland Dictated Date: 10/01/2024 20:03 ET Assigned Physician: Josee Rowland Reviewed and Electronically Signed By: Josee Rowland Signed Date: 10/01/2024 20:05 ET Workstation ID: [id number] Transcribed By: Self Edit Transcribed Date: 10/01/2024 [...] changes at the patellofemoral joint. POS - [id number] -------- FINAL REPORT -------- Dictated By: Josee Rowland Dictated Date: 10/01/2024 20:03 ET Assigned Physician: Josee Rowland Reviewed and Electronically Signed By: Josee Rowland Signed Date: 10/01/2024 20:05 ET Workstation ID: [id number] Transcribed By: Self Edit Transcribed Date: 10/01/2024 20:03 ET Kendall Flores [employer] IMG XR PROCEDURES from Last 3 Months Care Teams Hand Inserter Operator Relationship Specialty Start Date End Date Courtney Potts MD [address] [place] [address] PCP - General Internal Medicine 07/10/21
--- OUTSIDE RECORDS SUMMARY | 2024-10-05 13:08 | XMS_ITS | Encounter Summary ---
Author Organization [facility] Address [id number] [place] [id number] Care Team Providers Care Flatwork Finisher Hand Name Role Phone Courtney Potts MD Primary Care Provider [phone] Reason for Referral * Consultation (Routine) - Pending Review Specialty Diagnoses / Procedures Referred By Contmaximo t Referred To Contact Speech Pathology / Speech Therapy Diagnoses Choking, subsequent encounter Kendall Flores NP [address] [place] [address] Referral ID Status Reason Start Date Expiration Date Visits Requested Visits Authorized [id number] Pending Review Specialty Services Required 10/01/2024 10/01/2025 1 1 * Consultation (Routine) - Authorized Specialty Diagnoses / Procedures Referred By Contact Referred To Contact Gastroenterology Diagnoses Choking, subsequent encounter Kendall Flores NP [address] [place] [address] [facility] [address] [address] Referral ID Status Reason Start Date Expiration Date Visits Requested Visits Authorized [id number] Authorized Specialty Services Required 10/01/2024 10/01/2025 1 1 * Imaging (Routine) - Pending Review Specialty Diagnoses / Procedures Referred By Contac t Referred To Contact Radiology Diagnoses Choking, subsequent encounter Mixed hyperlipidemia Procedures US Head Neck Soft Tissue Kendall Flores NP [address] [place], [place] [address] Referral ID Status Reason Start Date Expiration Date V isits Requested Visits Authorized [id number] Pending Review 10/01/2024 10/01/2025 1 1 Reason for Visit * Reason Comments Knee Pain Encounter Details Date Type Department Care Team (Late st Contact Info) Description 10/01/2024 10:00 AM EST Office Visit Adult Medicine [address] [phone] Kendall Flores NP [address] [place] [address] Acute pain of right knee (Primary Dx); Choking, subsequent encounter; Vitamin D deficiency; Mixed hyperlipidemia; Encounter for screening for cardiovascular disorders; Encounter for screening for malignant neoplasm of prostate Social History Tobacco Use Types Packs/Day Years [...] on file documented as of this encounter Last Filed Vital Signs Vital Sign Reading [...] Mass Index 34.93 10/01/2024 9:58 AM EST documented in this encounter Ordered Prescriptions Prescription Sig Dispensed Refills Start Date End Da te lidocaine (LIDODERM) 5 % patchIndications:Acute pain of right knee Apply 1 patch topically 1 (one) time each day. Remove & discard patch within 12 hours or as directed by . 10 patch 10/01/2024 cholecalciferol (VITAMIN D-3) 25 mcg (1,000 unit) tabletIndications:Vitamin D deficiency Take 1 tablet (1,000 Units total) by mouth 1 (one) time each day. 90 tablet 1 10/01/2024 atorvastatin (LIPITOR) 40 mg tabletIndications:Mixed hyperlipidemia,Encounter for screening for cardiovascular disorders Take 1 tablet (40 mg total) by mouth 1 (one) time each day. 90 tablet 1 10/01/2024 documented in this encounter Progress Notes * Kendall Flores NP - 10/01/2024 10:00 AM ESTAssociated Problem(s): Hyperlipidemia Last LDL 169. Patient reports that he [...] day. US Head Neck Soft Tissue; Future * Kendall Flores NP - 10/01/2024 10:00 AM ESTAssociated Problem(s): Vitamin D deficiency Patient has a history of vitamin D deficiency. He reports that he has not been taking his vitamin D supplement because he ran out. A new prescription was sent to the pharmacy. Orders: cholecalciferol (VITAMIN D-3) 25 mcg (1,000 unit) tablet; Take 1 tablet (1,000 Units total) by mouth 1 (one) time each day. * Timi Arrieta MA - 10/01/2024 10:00 AM EST Right side knee pain. Not taking anything to relieve the pain. * Kendall Flores NP - 10/01/2024 10:00 AM EST PATIENT'S PCP: Courtney Potts MD LAST VISIT IN THIS DEPARTMENT: Visit date not found Steven Farah is a 64 y.o. (: 1960) male who presents today for chronic medical and medication management. CARIDAD Harris is a 64 y.o. male who complains of right knee pain for 1year. Patient states that this is not due to an injury. Patient denies swelling. Patient denies erythema over the joint. Patient admitsto morning stiffness. Patient denies locking, catching of the knee. Patient states that walking up and down stairs is worse than walking on flat surfaces. Patient denies fevers and chills. Patient report ongoing choking episodes. He reports choking on food and some time his saliva. In 2021 patient had a barium swallow that showed Premature spillage of barium into the piriform sinuses and vallecula with microvascular aspiration eliciting cough. Modified barium swallow with speech pathology and multiple consistency evaluation was recommended. The barium swallow exam also showed Distal esophageal diverticulum, Sliding hiatal type hernia and No visualized gastroesophageal reflux during the examination. However, this does not exclude gastroesophageal reflux per report. Hypercholesterolemia: Last LDL was 169, triglyceride 222. Patient is ordered to take a statin, but reports he has not been taking this medication for some time now. He stated he stopped taking the medication because he did not want to be a sleep to medications. He wanted to try to do this by dieting and exercise. However patient report that he has not been eating well or exercising. While on the medication patient denied nausea, abdominal pain, jaundice or pronounced persistent, diffuse muscle pain. CARDIAC RISK FACTORS: Hyperlipidemia, obesity and alcohol abuse. Family history of none Vitamin D deficiency, patient has a history of vitamin D deficiency. He is on vitamin D supplement.He states that he stopped the medication because he ran out he would like to restart. Health maintenance: Last colonoscopy was March 05 2021. He is due to repeat in 10 years 2031. Patientrefused flu vaccine, COVID-vaccine, RSV and shingles. He reports no depression. ROS Review of Systems Constitutional: Negative. Respiratory: Negative. Cardiovascular: Negative. Gastrointestinal: Negative. Endocrine: Negative. Genitourinary: Negative. Musculoskeletal: Positive for arthralgias. Right Knee pain. Patient left hand is bandaged up secondary to him shooting a nail into his left hand. He is followed by specialist through his job. Patient stated no pain Skin: Negative. Neurological: Negative. Hematological: Negative. PAST MEDICAL HISTORY: Patient Active Problem List Diagnosis Date Noted Vitamin D deficiency 05/05/2022 Hiatal hernia 05/05/2022 Hyperlipidemia 10/12/2021 Anxiety 11/21/2014 Alcohol abuse 11/21/2014 No past surgical history on file. SOCIAL HISTORY: Social History Tobacco Use Smoking status: Never Smokeless tobacco: Never Substance Use Topics Alcohol use: Yes FAMILY HISTORY: Family History Problem Relation Name Age of Onset Breast cancer Sister Breast cancer Mother Other (Other: Other ) Mother age 90, no meds Other (Other: Other ) Father age 79, no meds Colon cancer Paternal Grandmother from colon cancer at age 87 Other (Other: from pneumonia, no other illness known to pt ) Paternal Grandfather Family Status Relation Name Status Sister (Not Specified) Mother (Not Specified) Father (Not Specified) PGM (Not Specified) PGF (Not Specified) No partnership data on file Social Influencer of Health (SIOH): The following portions of the patient's chart were reviewed in this encounter and updated as appropriate: OBJECTIVES Vitals: 10/01/24 0958 BP: 110/74 BP Location: Left arm Patient Position: Sitting BP Cuff Size: Adult Pulse: 88 Resp: 16 Temp: 36.7 ??C (98 ??F) TempSrc: Oral Weight: 86.6 kg (191 lb) Height: 1.575 m (62 ) Body mass index is 34.93 kg/m??. BMI is greater than 25.0 (above the normal range) - see Plan BP Readings from Last 5 Encounters: 10/01/24 110/74 03/21/24 114/70 10/12/23 116/66 09/23/23 118/74 05/27/23 126/80 Wt Readings from Last 5 Encounters: 10/01/24 0958 86.6 kg (191 lb) 03/21/24 1304 85.1 kg (187 lb 9.6 oz) 10/12/23 1454 82.8 kg (182 lb 9.6 oz) 09/23/23 0917 85.8 kg (189 lb 3.2 oz) 05/27/23 1457 83.8 kg (184 lb 12.8 oz) No Known Allergies Active Medications: Current Outpatient Medications Medication Instructions atorvastatin (LIPITOR) 40 mg, oral, Daily cholecalciferol (VITAMIN D-3) 1,000 Units, oral, Daily lidocaine (LIDODERM) 5 % patch 1 patch, Topical, Daily, Remove & discard patch within 12 hours or as directed by MD. Physical Exam Vitals reviewed. Constitutional: Appearance: Normal appearance. Cardiovascular: Rate and Rhythm: Normal rate and regular rhythm. Pulses: Normal pulses. Heart sounds: Normal heart sounds. Pulmonary: Effort: Pulmonary effort is normal. Breath sounds: Normal breath sounds. Abdominal: General: Bowel sounds are normal. Palpations: Abdomen is soft. Musculoskeletal: Left hand: Laceration present. Cervical back: Normal range of motion and neck supple. Right knee: No swelling, erythema or ecchymosis. Decreased range of motion. Tenderness present. Comments: Left hand trauma, patient shot a nail into her left hand. Patient is able to move fingers. CMS intact No evidence of infection Skin: General: Skin is warm and dry. Neurological: General: No focal deficit present. Mental Status: He is alert. Mental status is at baseline. Imaging No Pertinent Imaging Laboratory: CBC: No results found for: WBC , HGB , HCT , MCV , PLT CMP: No results found for: NA , K , CL , CO2 , GLUCOSE , BUN , CREATININE , CALCIUM , PROT , ALBUMIN , BILITOT , AST , ALT , URICACID , PHOS , MG , ALKPHOS , CKTOTAL , EGFR A1c/Microalbuminuria/LDL/GFR: No results found for: HGBA1C No results found for: GLUF , MICROALBUR , LDLCALC , CREATININE , MICROALBCREA Lipids: No results found for: CHOL , TRIG , HDL , LDLCALC , VLDL , NONHDLC , CHOLHDL PSA: No results found for: PSA Assessment & Plan Acute pain of right knee Patient was advised to rest the area as much as possible and to apply ice and elevate the area. Xray of the right knee order. Prescription for lidocaine 5% patch given. Patient can also take OTC acetaminophen. Currently I instructed the patient that we will attempt conservative therapy for 2-3 weeks. I instructed the patient to make an appt to follow up if no improvement or worsening after that time. May consider referral at that time to Physical Therapy and Orthopedic for further evaluation and treatment. Patient understands the plan. Patient is in agreement with the plan. Orders: lidocaine (LIDODERM) 5 % patch; Apply 1 patch topically 1 (one) time each day. Remove & discardpatch within 12 hours or as directed by MD. XR Knee 4+ Views Right; Future Choking, subsequent encounter Patient reports ongoing choking for several months. He had a barium swallow in 2021 that recommend he see speech pathologist. Because patient is continue to have choking episodes I will refer patient to speech pathology as well as to gastroenterology. I also ordered ultrasound to evaluate as patient reports there is sensation of lump in the throat. Patient is to chew his food slowly and take small bites to prevent choking episodes. Orders: US Head Neck Soft Tissue; Future Ambulatory referral to Gastroenterology; Future Ambulatory referral to Speech Therapy; Future Vitamin D deficiency Patient has a history of vitamin D deficiency. He reports that he has not been taking his vitamin D supplement because he ran out. A new prescription was sent to the pharmacy. Orders: cholecalciferol (VITAMIN D-3) 25 mcg (1,000 unit) tablet; Take 1 tablet (1,000 Units total) by mouth 1 (one) time each day. Mixed hyperlipidemia Last LDL 169. Patient reports that he stopped taking atorvastatin. After long discussion regardingCardiovascular risk and specific lipid/LDL goals reiterated. Patient [...] day. US Head Neck Soft Tissue; Future Encounter for screening for cardiovascular disorders Orders: Lipid panel with reflex to direct LDL; Future atorvastatin (LIPITOR) 40 mg tablet; Take 1 tablet (40 mg total) by mouth 1 (one) time each day. Encounter for screening for malignant neoplasm of prostate Last PSA was in 2021. Will recheck PSA levels today. Orders: Comprehensive metabolic panel; Future Prostate specific antigen screen; Future FOLLOW-UP: Follow up in about 6 months (around 03/31/2025), or if symptoms worsen or fail to improve, for Please book with care team. Health Maintenance Due Topic Date Due Social Influencers of Health Screening Never done Kendall Flores NP [address] [phone] Today's documentation was made using voice recognition software.This note may contain grammatical errors secondary to this software. documented in this encounter Plan of Treatment Upcoming Encounters Date Type Department Care Team (Late st Contact Info) Description 10/19/2024 9:00 AM EST Consult Gastroenterology - [address] [phone] Niya Baker NP [address] [address] Scheduled Referrals Name Type Priority Associated Diagnoses Order Schedule Ambulatory referral to Gastroenterology Outpatient Referral Routine Choking, subsequent encounter 1 Occurrences starting 10/01/2024 until 10/01/2025 Ambulatory referral to Speech Therapy Outpatient Referral Routine Choking, subsequent encounter 1 Occurrences starting 10/01/2024 until 10/01/2025 documented as of this encounter Results * US Head Neck [...] Signed Date: 10/03/2024 10:11 ET Workstation ID: [id number] Transcribed By: Self Edit Transcribed Date: 10/03/2024 [...] Signed Date: 10/03/2024 10:11 ET Workstation ID: [id number] Transcribed By: Self Edit Transcribed Date: 10/03/2024 10:07 ET Kendall Flores ARCH PAD CEMENTER IMG US PROCEDURES * Prostate specific antigen screen (10/01/2024 11:39 AM EST) PSA 1.66 0.00 - 4.00 ng/mL LAB CHEMISTRY METHOD 10/01/2024 3:58 PM EST [facility] Blood Venous blood specimen / Unknown Venipuncture / Unknown 10/01/2024 11:39 AM EST 10/01/2024 11:39 AM EST Narrative [facility] - 10/01/2024 3:58 PM EST The Siemens Advia Telunjukaur Chemiluminescent Immunoassay is used. Results obtained with different assay methods or kits cannot be used interchangeably. Results cannot be interpreted as absolute evidence of the presence or absence of malignant disease. Kendall Flores NP LAB BLOOD ORDERABLES [facility] [address] [place] [address], * (ABNORMAL) Comprehensive metabolic panel (10/01/2024 11:39 AM EST) Sodium 139 133 - 145 mmol/L LAB CHEMISTRY METHOD 10/01/2024 3:[address] [facility] Potassium 4.1 3.5 - 5.5 mmol/L LAB CHEMISTRY METHOD 10/01/2024 3:57 PM EST [facility] Chloride 105 96 - 110 mmol/L LAB CHEMISTRY METHOD 10/01/2024 3:57 PM EST [facility] CO2 31 21 - 32 mmol/L LAB CHEMISTRY METHOD 10/01/2024 3:[address] [facility] Anion Gap 3 3 - 11 LAB CHEMISTRY METHOD 10/01/2024 3:[address] [facility] Glucose 101(H) 70 - 100 mg/dL LAB CHEMISTRY METHOD 10/01/2024 3:[address] [facility] BUN 14 5 - 25 mg/dL LAB CHEMISTRY METHOD 10/01/2024 3:[address] [facility] Creatinine 0.92 0.70 - 1.30 mg/dL LAB CHEMISTRY METHOD 10/01/2024 3:[address] [facility] eGFR 93 >=60 mL/min/1. 73m2 LAB CHEMISTRY METHOD 10/01/2024 3:[address] [facility] Comment:Calculation based on the??Chronic Kidney Disease Epidemiology Collaboration (CKD-EPI) equation refit??without adjustment for race. BUN/Creatinine Ratio 15.2 LAB CHEMISTRY METHOD 10/01/2024 3:[address] [facility] Calcium 9.5 8.5 - 10.5 mg/dL LAB CHEMISTRY METHOD 10/01/2024 3:[address] [facility] AST (SGOT) 18 10 - 42 unit/L LAB CHEMISTRY METHOD 10/01/2024 3:[address] [facility] ALT (SGPT) 20 10 - 60 unit/L LAB CHEMISTRY METHOD 10/01/2024 3:[address] [facility] Alkaline Phosphatase 80 42 - 121 unit/L LAB CHEMISTRY METHOD 10/01/2024 3:[address] [facility] Total Protein 7.4 6.0 - 8.0 g/dL LAB CHEMISTRY METHOD 10/01/2024 3:[address] [facility] Albumin 3.9 3.2 - 5.0 g/dL LAB CHEMISTRY METHOD 10/01/2024 3:[address] [facility] Total Bilirubin 0.7 0.0 - 1.4 mg/dL LAB CHEMISTRY METHOD 10/01/2024 3:[address] [facility] Blood Venous blood specimen / Unknown Venipuncture / Unknown 10/01/2024 11:39 AM EST 10/01/2024 11:39 AM EST Kendall Flores [employer] P[employer] C[employer]ER LAB BLOOD ORDERABLES [facility] [address] [place] [address], [place] [phone] * (ABNORMAL) Lipid panel with reflex to direct LDL (10/01/2024 11:39 AM EST) Cholesterol 225(H) 0 - 200 mg/dL LAB CHEMISTRY METHOD 10/01/2024 3:57 PM EST [facility] Triglycerides 262(H) 0 - 150 mg/dL LAB CHEMISTRY METHOD 10/01/2024 3:57 PM EST [facility] HDL 48 >=40 mg/dL LAB CHEMISTRY METHOD 10/01/2024 3:57 PM EST [facility] LDL Calculated 125(H) 0 - 100 mg/dL LAB CHEMISTRY METHOD 10/01/2024 3:57 PM EST [facility] VLDL Cholesterol Thad 52.4 mg/dL LAB CHEMISTRY METHOD 10/01/2024 3:57 PM EST [facility] Non HDL Chol. (LDL+VLDL) 177(H) <145 mg/dL LAB CHEMISTRY METHOD 10/01/2024 3:57 PM EST [facility] Chol/HDL Ratio 4.7(H) 0.0 - 4.4 LAB CHEMISTRY METHOD 10/01/2024 3:57 PM EST [facility] Blood Venous blood specimen / Unknown Venipuncture / Unknown 10/01/2024 11:39 AM EST 10/01/2024 11:39 AM EST Kendall Flores [employer]ER LAB BLOOD ORDERABLES [facility] [address] [place] [address], [place] [phone] * XR Knee 4+ Views Right (10/01/2024 11:16 AM EST) Anatomical Region Laterality Modality Lower Extremities, Knee Right Radiogra phic Imaging 10/01/2024 8:03 PM EST Impressions 10/01/2024 8:05 PM EST Minimal degenerative changes at the patellofemoral joint. POS - [id number] -------- FINAL REPORT -------- Dictated By: Josee Rowland Dictated Date: 10/01/2024 20:03 ET Assigned Physician: Josee Rowland Reviewed and Electronically Signed By: Josee Rowland Signed Date: 10/01/2024 20:05 ET Workstation ID: [id number] Transcribed By: Self Edit Transcribed Date: 10/01/2024 [...] changes at the patellofemoral joint. POS - [id number] -------- FINAL REPORT -------- Dictated By: Josee Rowland Dictated Date: 10/01/2024 20:03 ET Assigned Physician: Josee Rowland Reviewed and Electronically Signed By: Josee Rowland Signed Date: 10/01/2024 20:05 ET Workstation ID: [id number] Transcribed By: Self Edit Transcribed Date: 10/01/2024 20:03 ET Kendall Flores ARCH PAD CEMENTER IMG XR PROCEDURES documented in this encounter Visit Diagnoses Diagnosis Acute pain of right knee- Primary Choking, subsequent encounter Vitamin D deficiency Mixed hyperlipidemia Encounter for screening for cardiovascular disorders Encounter for screening for malignant neoplasm of prostate Acute pain of left knee Choking, subsequent encounter Mixed hyperlipidemia documented in this encounter Discontinued Medications Medication Sig Discontinue Reason Start Date End Da te atorvastatin (LIPITOR) 40 mg tablet Take 1 tablet (40 mg total) by mouth 1 (one) time each day. Reorder 09/22/2023 10/01/2024 cholecalciferol (VITAMIN D-3) 25 mcg (1,000 unit) tablet Take 1 tablet (1,000 Units total) by mouth 1 (one) time each day. Reorder 02/21/2023 10/01/2024 documented as of this encounter Additional Health Concerns Assessment Noted Time PHQ-9 Depression Total Score: 0 10/01/19 25 11:00 AM EST documented as of this encounter Care Teams Flatwork Finisher Hand Relationship Specialty Start Date End Date Courtney Potts MD [address] [place] [address] PCP - General Internal Medicine 07/10/21 documented as of this encounter
== END 2024-10-05 12:53 | disposition home or self-care (01) ==
LOC: HO.HOSX 12:52
DX: M79.642 Pain in left hand (principal); S62.301A Unspecified fracture of second metacarpal bone, left hand, initial encounter for closed fracture; S62.303A Unspecified fracture of third metacarpal bone, left hand, initial encounter for closed fracture; W20.8XXA Other cause of strike by thrown, projected or falling object, initial encounter; Y93.H3 Activity, building and construction; Y92.9 Unspecified place or not applicable; Y99.9 Unspecified external cause status
CPT/HCPCS: 73130; 99202

== ENCOUNTER 2024-10-05 13:16 | Outpatient (AMB) | payer OTHER, SELFPAY ==
--- OUTSIDE RECORDS SUMMARY | 2024-10-05 13:34 | XMS_ITS | Encounter Summary ---
Author Organization [facility] Address [id number] [place] [phone] Care Team Providers Care Program Analyst Name Role Phone Courtney Potts MD Primary Care Provider [phone] Reason for Referral * Consultation (Routine) - Pending Review Specialty Diagnoses / Procedures Referred By Contmaximo t Referred To Contact Speech Pathology / Speech Therapy Diagnoses Choking, subsequent encounter Kendall Flores NP [address] [place] [address] Referral ID Status Reason Start Date Expiration Date Visits Requested Visits Authorized [id number] Pending Review Specialty Services Required 10/01/2024 10/01/2025 1 1 * Consultation (Routine) - Authorized Specialty Diagnoses / Procedures Referred By Contact Referred To Contact Gastroenterology Diagnoses Choking, subsequent encounter Kendall Flores NP [address] [place] [address] [facility] Gastroenterology [address] [address] Referral ID Status Reason Start Date Expiration Date Visits Requested Visits Authorized [id number] Authorized Specialty Services Required 10/01/2024 10/01/2025 1 1 * Imaging (Routine) - Pending Review Specialty Diagnoses / Procedures Referred By Contac t Referred To Contact Radiology Diagnoses Choking, subsequent encounter Mixed hyperlipidemia Procedures US Head Neck Soft Tissue Kendall Flores NP [address] [place], [place] [address] Referral ID Status Reason Start Date Expiration Date V isits Requested Visits Authorized [id number] Pending Review 10/01/2024 10/01/2025 1 1 Reason for Visit * Reason Comments Knee Pain Encounter Details Date Type Department Care Team (Late st Contact Info) Description 10/01/2024 10:00 AM EST Office Visit Adult Medicine [address] [phone] Kendall Flores NP [address] [place] [address] Acute pain of right knee (Primary Dx); [...] for chronic medical and medication management. CARIDAD aHrris is a 64 y.o. male who complains [...] Health Screening Never done Kendall Flores NP [address] [phone] Today's documentation was made using voice recognition software.This note may contain grammatical errors secondary to this software. documented in this encounter Plan of Treatment Upcoming Encounters Date Type Department Care Team (Late st Contact Info) Description 10/19/2024 9:00 AM EST Consult Gastroenterology - [address] [phone] Niya Baker NP [address] [address] Scheduled Referrals Name Type Priority Associated Diagnoses [...] Signed Date: 10/03/2024 10:11 ET Workstation ID: [id number] Transcribed By: Self Edit Transcribed Date: 10/03/2024 [...] Signed Date: 10/03/2024 10:11 ET Workstation ID: [id number] Transcribed By: Self Edit Transcribed Date: 10/03/2024 10:07 ET Kendall Flores ADMIRALTY LAWYER IMG US PROCEDURES * Prostate specific antigen screen (10/01/2024 11:39 AM EST) PSA 1.66 0.00 - 4.00 ng/mL LAB CHEMISTRY METHOD 10/01/2024 3:58 PM EST [facility] Blood Venous blood specimen / Unknown Venipuncture / Unknown 10/01/2024 11:39 AM EST 10/01/2024 11:39 AM EST Narrative [facility] - 10/01/2024 3:58 PM EST The Siemens Advia GiftLauncheraur Chemiluminescent Immunoassay is used. Results obtained with different assay methods or kits cannot be used interchangeably. Results cannot be interpreted as absolute evidence of the presence or absence of malignant disease. Kendall Flores NP LAB BLOOD ORDERABLES [facility] [address] [place] [address], * (ABNORMAL) Comprehensive metabolic panel (10/01/2024 11:39 AM EST) Sodium 139 133 - 145 mmol/L LAB CHEMISTRY METHOD 10/01/2024 3:57 PM [facility] Potassium 4.1 3.5 - 5.5 mmol/L LAB CHEMISTRY METHOD 10/01/2024 3:57 PM EST [facility] Chloride 105 96 - 110 mmol/L LAB CHEMISTRY METHOD 10/01/2024 3:57 PM EST [facility] CO2 31 21 - 32 mmol/L LAB CHEMISTRY METHOD 10/01/2024 3:57 PM [facility] Anion Gap 3 3 - 11 LAB CHEMISTRY METHOD 10/01/2024 3:57 PM [facility] Glucose 101(H) 70 - 100 mg/dL LAB CHEMISTRY METHOD 10/01/2024 3:57 PM [facility] BUN 14 5 - 25 mg/dL LAB CHEMISTRY METHOD 10/01/2024 3:57 PM [facility] Creatinine 0.92 0.70 - 1.30 mg/dL LAB CHEMISTRY METHOD 10/01/2024 3:57 PM [facility] eGFR 93 >=60 mL/min/1. 73m2 LAB CHEMISTRY METHOD 10/01/2024 3:57 PM [facility] Comment:Calculation based on the??Chronic Kidney Disease Epidemiology Collaboration (CKD-EPI) equation refit??without adjustment for race. BUN/Creatinine Ratio 15.2 LAB CHEMISTRY METHOD 10/01/2024 3:57 PM [facility] Calcium 9.5 8.5 - 10.5 mg/dL LAB CHEMISTRY METHOD 10/01/2024 3:57 PM [facility] AST (SGOT) 18 10 - 42 unit/L LAB CHEMISTRY METHOD 10/01/2024 3:57 PM [facility] ALT (SGPT) 20 10 - 60 unit/L LAB CHEMISTRY METHOD 10/01/2024 3:57 PM [facility] Alkaline Phosphatase 80 42 - 121 unit/L LAB CHEMISTRY METHOD 10/01/2024 3:57 PM [facility] Total Protein 7.4 6.0 - 8.0 g/dL LAB CHEMISTRY METHOD 10/01/2024 3:57 PM [facility] Albumin 3.9 3.2 - 5.0 g/dL LAB CHEMISTRY METHOD 10/01/2024 3:57 PM [facility] Total Bilirubin 0.7 0.0 - 1.4 mg/dL LAB CHEMISTRY METHOD 10/01/2024 3:57 PM [facility] Blood Venous blood specimen / Unknown Venipuncture / Unknown 10/01/2024 11:39 AM EST 10/01/2024 11:39 AM EST Kendall Flores ADMIRALTY LAWYER LAB BLOOD ORDERABLES [facility] [address] [place] [address], [place] [phone] * (ABNORMAL) Lipid panel with reflex to direct LDL (10/01/2024 11:39 AM EST) Cholesterol 225(H) 0 - 200 mg/dL LAB CHEMISTRY METHOD 10/01/2024 3:57 PM EST [facility] Triglycerides 262(H) 0 - 150 mg/dL LAB CHEMISTRY METHOD 10/01/2024 3:57 PM EST [facility] HDL 48 >=40 mg/dL LAB CHEMISTRY METHOD 10/01/2024 3:57 PM EST [facility] LDL Calculated 125(H) 0 - 100 mg/dL LAB CHEMISTRY METHOD 10/01/2024 3:57 PM EST [facility] VLDL Cholesterol Thad 52.4 mg/dL LAB CHEMISTRY METHOD 10/01/2024 3:57 PM EST [facility] Non HDL Chol. (LDL+VLDL) 177(H) <145 mg/dL LAB CHEMISTRY METHOD 10/01/2024 3:57 PM EST [facility] Chol/HDL Ratio 4.7(H) 0.0 - 4.4 LAB CHEMISTRY METHOD 10/01/2024 3:57 PM EST [facility] Blood Venous blood specimen / Unknown Venipuncture / Unknown 10/01/2024 11:39 AM EST 10/01/2024 11:39 AM EST Kendall Flores ADMIRALTY LAWYER LAB BLOOD ORDERABLES [facility] [address] [place] [address], [place] [phone] * XR Knee 4+ Views Right (10/01/2024 11:16 AM EST) Anatomical Region Laterality Modality Lower Extremities, Knee Right Radiogra phic Imaging 10/01/2024 8:03 PM EST Impressions 10/01/2024 8:05 PM EST Minimal degenerative changes at the patellofemoral joint. POS - [id number] -------- FINAL REPORT -------- Dictated By: Josee Rowland Dictated Date: 10/01/2024 20:03 ET Assigned Physician: Josee Rowland Reviewed and Electronically Signed By: Josee Rowland Signed Date: 10/01/2024 20:05 ET Workstation ID: [id number] Transcribed By: Self Edit Transcribed Date: 10/01/2024 [...] changes at the patellofemoral joint. POS - [id number] -------- FINAL REPORT -------- Dictated By: Josee Rowland Dictated Date: 10/01/2024 20:03 ET Assigned Physician: Josee Rowland Reviewed and Electronically Signed By: Josee Rowland Signed Date: 10/01/2024 20:05 ET Workstation ID: [id number] Transcribed By: Self Edit Transcribed Date: 10/01/2024 20:03 ET Kendall Flores ADMIRALTY LAWYER IMG XR PROCEDURES documented in this encounter [...] documented as of this encounter Care Teams Program Analyst Relationship Specialty Start Date End Date Courtney Potts MD [address] [place] [address] PCP - General Internal Medicine 07/10/21 documented as of this encounter
--- OUTSIDE RECORDS SUMMARY | 2024-10-05 13:34 | XMS_ITS | Encounter Summary ---
Author Organization [employer] [facility] Address [address] [place] [address] Care Team Providers Care Manager Strategic Marketing Name Role Phone Courtney Potts MD Primary Care Provider [phone] Encounter Details Date Type Department Care Team (Latest Contact Info) Description 10/01/2024 11:00 AM EST - 10/01/2024 11:59 PM [facility] Hospital Encounter XRROBERT Davis [address] [place] [address] Acute pain of left knee Discharge Disposition: [...] 10/19/2024 9:00 AM EST Consult Gastroenterology - [place] 175 [facility] 175 [facility] [address] [place] [phone] Niya Baker, GRANT 175 [facility] [address] [place] [address] documented as of this encounter Procedures Procedure [...] changes at the patellofemoral joint. POS - [id number] -------- FINAL REPORT -------- Dictated By: Josee Rowland Dictated Date: 10/01/2024 20:03 ET Assigned Physician: Josee Rowland Reviewed and Electronically Signed By: Josee Rowland Signed Date: 10/01/2024 20:05 ET Workstation ID: [id number] Transcribed By: Self Edit Transcribed Date: 10/01/2024 [...] changes at the patellofemoral joint. POS - [id number] -------- FINAL REPORT -------- Dictated By: Josee Rowland Dictated Date: 10/01/2024 20:03 ET Assigned Physician: Josee Rowland Reviewed and Electronically Signed By: Josee Rowland Signed Date: 10/01/2024 20:05 ET Workstation ID: [id number] Transcribed By: Self Edit Transcribed Date: 10/01/2024 20:03 ET Kendall Flores NREMT IMG XR PROCEDURES documented in this encounter Visit Diagnoses Diagnosis Acute pain of left knee documented in this encounter Additional Health Concerns Assessment Noted Time PHQ-9 Depression Total Score: 0 10/01/19 25 11:00 AM EST documented as of this encounter Care Teams Manager Strategic Marketing Relationship Specialty Start Date End Date Courtney Potts MD [address] [place] [id number] PCP - General Internal Medicine 07/10/21 documented as of this encounter
--- OUTSIDE RECORDS SUMMARY | 2024-10-05 13:34 | XMS_ITS | Encounter Summary ---
Author Organization [facility] Address [address] [place] [address] Care Team Providers Care Elementary Special Education Teacher Name Role Phone Courtney Potts MD Primary Care Provider [phone] Reason for Referral * Imaging (Routine) - Pending Review Specialty Diagnoses / Procedures Referred By Lorelei joe Referred To Contact Radiology Diagnoses Choking, subsequent encounter Mixed hyperlipidemia Procedures US Head Neck Soft Tissue Kendall Flores NP [address] [place] [address] Referral ID Status Reason Start Date Expiration Date V isits Requested Visits Authorized [id number] Pending Review 10/01/2024 10/01/2025 1 1 Reason for Visit * Imaging (Routine) - Pending Review Specialty Diagnoses / Procedures Referred By Lorelei joe Referred To Contact Radiology Diagnoses Choking, subsequent encounter Mixed hyperlipidemia Procedures US Head Neck Soft Tissue Kendall Flores NP [address] [place] [address] Referral ID Status Reason Start Date Expiration Date V isits Requested Visits Authorized [id number] Pending Review 10/01/2024 10/01/2025 1 1 Encounter Details Date Type Department Care Team (Latest Contact Info) Description 10/02/2024 4:52 PM EST - 10/02/2024 11:59 PM EST Hospital Encounter Radiology Department - [address] [phone] Choking, subsequent encounter; Mixed hyperlipidemia Discharge Disposition: [...] 10/19/2024 9:00 AM EST Consult Gastroenterology - [place] [address] [place] [phone] Niya Baker NP [address] [address] documented as of this encounter Procedures Procedure [...] Signed Date: 10/03/2024 10:11 ET Workstation ID: [id number] Transcribed By: Self Edit Transcribed Date: 10/03/2024 [...] Signed Date: 10/03/2024 10:11 ET Workstation ID: [id number] Transcribed By: Self Edit Transcribed Date: 10/03/2024 10:07 ET Kendall Flores METAL MINER BLASTING IMG US PROCEDURES documented in this encounter Visit Diagnoses Diagnosis Choking, subsequent encounter Mixed hyperlipidemia documented in this encounter Additional Health Concerns Assessment Noted Time PHQ-9 Depression Total Score: 0 10/01/19 25 11:00 AM EST documented as of this encounter Care Teams Elementary Special Education Teacher Relationship Specialty Start Date End Date Courtney Potts MD [address] [place] [address] PCP - General Internal Medicine 07/10/21 documented as of this encounter
--- OUTSIDE RECORDS SUMMARY | 2024-10-05 13:34 | XMS_ITS | Clinical Summary ---
Author Organization [facility] [address] [place] [address] [place] [phone] Phone Care Team Providers Care Museum Preparator Name Role Phone Courtney Potts MD Primary Care Provider [phone] Allergies No known active allergies Medications Medication [...] PM EST Hospital Encounter Radiology Department - [address] [phone] Choking, subsequent encounter; Mixed hyperlipidemia Discharge Disposition: Home or Self Care 10/01/2024 11:00 AM EST - 10/01/2024 11:59 PM EST Hospital Encounter XRAY - [address] [phone] Acute pain of left knee Discharge Disposition: Home or Self Care 10/01/2024 10:00 AM EST Office Visit Adult Medicine [place] - [address] [phone] Kendall Flores NP Acute pain of right [...] 10/19/2024 9:00 AM EST Consult Gastroenterology - [place] 175 [facility] 175 [facility] [address] [place] [address] Niya Baker NP [address] [place] [address] Health Maintenance Due Date Last Done Comments [...] Signed Date: 10/03/2024 10:11 ET Workstation ID: [id number] Transcribed By: Self Edit Transcribed Date: 10/03/2024 [...] Signed Date: 10/03/2024 10:11 ET Workstation ID: [id number] Transcribed By: Self Edit Transcribed Date: 10/03/2024 10:07 ET Kendall Flores NP IMG US PROCEDURES * Prostate specific antigen screen (10/01/2024 11:39 AM EST) PSA 1.66 0.00 - 4.00 ng/mL LAB CHEMISTRY METHOD 10/01/2024 3:58 PM EST [facility] Blood Venous blood specimen / Unknown Venipuncture / Unknown 10/01/2024 11:39 AM EST 10/01/2024 11:39 AM EST Narrative [facility] - 10/01/2024 3:58 PM EST The Siemens Advia Centaur Chemiluminescent Immunoassay is used. Results obtained with different assay methods or kits cannot be used interchangeably. Results cannot be interpreted as absolute evidence of the presence or absence of malignant disease. Kendall Flores NP LAB BLOOD ORDERABLES [facility] [address] [place] [address], * (ABNORMAL) Lipid panel with reflex to direct LDL (10/01/2024 11:39 AM EST) Cholesterol 225(H) 0 - 200 mg/dL LAB CHEMISTRY METHOD 10/01/2024 3:57 PM [facility] Triglycerides 262(H) 0 - 150 mg/dL LAB CHEMISTRY METHOD 10/01/2024 3:57 PM [facility] HDL 48 >=40 mg/dL LAB CHEMISTRY METHOD 10/01/2024 3:57 PM [facility] LDL Calculated 125(H) 0 - 100 mg/dL LAB CHEMISTRY METHOD 10/01/2024 3:57 PM [facility] VLDL Cholesterol Thad 52.4 mg/dL LAB CHEMISTRY METHOD 10/01/2024 3:57 PM [facility] Non HDL Chol. (LDL+VLDL) 177(H) <145 mg/dL LAB CHEMISTRY METHOD 10/01/2024 3:57 PM [facility] Chol/HDL Ratio 4.7(H) 0.0 - 4.4 LAB CHEMISTRY METHOD 10/01/2024 3:57 PM [facility] Blood Venous blood specimen / Unknown Venipuncture / Unknown 10/01/2024 11:39 AM EST 10/01/2024 11:39 AM EST Kendall Flores NP LAB BLOOD ORDERABLES [facility] [address] [place] [address], * (ABNORMAL) Comprehensive metabolic panel (10/01/2024 11:39 AM EST) Pathologist [facility] Sodium 139 133 - 145 mmol/L LAB CHEMISTRY METHOD 10/01/2024 3:57 PM [facility] Potassium 4.1 3.5 - 5.5 mmol/L LAB CHEMISTRY METHOD 10/01/2024 3:57 PM [facility] Chloride 105 96 - 110 mmol/L LAB CHEMISTRY METHOD 10/01/2024 3:57 PM [facility] CO2 31 21 - 32 [...] LAB CHEMISTRY METHOD 10/01/2024 3:57 PM EST [facility] Total Bilirubin 0.7 0.0 - 1.4 mg/dL LAB CHEMISTRY METHOD 10/01/2024 3:57 PM EST [facility] Blood Venous blood specimen / Unknown Venipuncture / Unknown 10/01/2024 11:39 AM EST 10/01/2024 11:39 AM EST Kendall Flores NP LAB BLOOD ORDERABLES [facility] [address] [place] [address], * XR Knee 4+ Views Right (10/01/2024 11:16 AM EST) Anatomical Region Laterality Modality Lower Extremities, Knee Right Radiogra phic Imaging 10/01/2024 8:03 PM EST Impressions 10/01/2024 8:05 PM EST Minimal degenerative changes at the patellofemoral joint. POS - [id number] -------- FINAL REPORT -------- Dictated By: Josee Rowland Dictated Date: 10/01/2024 20:03 ET Assigned Physician: Josee Rowland Reviewed and Electronically Signed By: Josee Rowland Signed Date: 10/01/2024 20:05 ET Workstation ID: [id number] Transcribed By: Self Edit Transcribed Date: 10/01/2024 [...] changes at the patellofemoral joint. POS - [id number] -------- FINAL REPORT -------- Dictated By: Josee Rowland Dictated Date: 10/01/2024 20:03 ET Assigned Physician: Josee Rowland Reviewed and Electronically Signed By: Josee Rowland Signed Date: 10/01/2024 20:05 ET Workstation ID: [id number] Transcribed By: Self Edit Transcribed Date: 10/01/2024 20:03 ET Kendall Flores [employer]ODU[employer] SUPERVISOR IMG XR PROCEDURES from Last 3 Months Care Teams Museum Preparator Relationship Specialty Start Date End Date Courtney Potts MD [address] [place] [address] PCP - General Internal Medicine 07/10/21
--- NOTE | 2024-10-05 13:38 | MHC.OFFVIS ---
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 Patient reports he accidentally shot his hand with a nail gun. Patient shares he removed the nail himself. Patient is experiencing occasional pain on his left middle finger knuckle, mainly when bending. Patient denies numbness and tingling. Denies finger locking. Denies any prior injuries or surgeries to the left hand. 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 Patient reports he accidentally shot his hand with a nail gun. Patient shares he removed the nail himself. Patient is experiencing occasional pain on his left middle finger knuckle, mainly when bending. Patient denies numbness and tingling. Denies finger locking. Denies any prior injuries or surgeries to the left hand. Review of Systems Const All systems reviewed & are unremarkable except as noted in HPI and below Physical Exam Extrem Other: Patient is alert, oriented, and in no acute distress. Neuro: Normal sensation of the tips of all digits of the left hand at this time Vascular: Cap refill brisk Pain: Patient reports no tenderness to palpation about the left hand, at the level of the fractures or the small wound site ROM: Patient is able to make a closed fist and extend all digits of the left hand fully and without difficulty Skin: There is a small wound, consistent with a puncture wound consistent with the incident described at his initial date of injury noted on the dorsal aspect of the left hand near the 2nd MCP joint. No erythema, edema, or evidence of infection noted. Wound closed, well-healing General: No ecchymosis, erythema, or evidence of infection. Psych: Appears grossly normal Affect normal Attitude cooperative Office Procedures AMB Fracture Care Fracture Billing Code: Fracture Billing Code Results Reviewed Results Reviewed: X-rays taken in the office today and independently reviewed by me demonstrate small, very minimally displaced avulsion fractures of the 2nd and 3rd metacarpal heads of the left hand, largely unchanged from previous x-rays. Assessment & Plan Assessment & Plan (1) Fracture of second metacarpal bone: Code(s): S62.308A - Unspecified fracture of other metacarpal bone, initial encounter for closed fracture Category: Medical (2) Fracture of third metacarpal bone: Code(s): S62.308A - Unspecified fracture of other metacarpal bone, initial encounter for closed fracture Category: Medical Plan 1. Open avulsion fractures of 2nd and 3rd metacarpal heads of the left hand Date of injury 09/27/2024 Patient appears to be recovering very well from his injury Patient is educated about the typical recovery course At this time, patient was informed that due to lack of any signs or symptoms of ongoing infection, he will not require any further antibiotic therapy once he has finished his current course Patient expresses understanding of this and is amenable to this plan Patient was provided with nilesh tape to wear on the middle and index fingers with daytime activities Patient was amenable to this plan Patient will follow-up in 3 weeks with repeat x-rays for reassessment, sooner with any acute concerns Orders: Orders XR hand LT min 3V 10/05/24 M79.642 - Pain in left hand Medications: Discontinued doxycycline monohydrate Discontinued Reason: Patient no longer taking 100 mg PO BID 14 days 28 caps 0RF naproxen Discontinued Reason: Patient no longer taking 500 mg PO BID PRN 10 tabs 0RF pain oxycodone-acetaminophen 5-325 mg Discontinued Reason: Patient no longer taking 1 tab PO Q6H PRN 10 tabs 0RF pain amoxicillin-pot clavulanate 875-125 mg Discontinued Reason: Patient no longer taking 1 tab PO BID 14 days 28 tabs 0RF benzonatate Discontinued Reason: Patient no longer taking 100 mg PO BID PRN 14 caps 0RF cough prednisone Discontinued Reason: Patient no longer taking 20 mg PO DAILY 7 days 7 tabs 0RF Coding Level of Care Code New Pt Level 3 (27898) Diagnoses Fracture of second metacarpal bone S62.308A Fracture of third metacarpal bone S62.308A CPT Codes Fracture Care - Fracture Billing Code: Fracture Billing Code ([id number])
== END 2024-10-05 13:57 | disposition home or self-care (01) ==
PROVIDERS: PCP Internal Medicine
DX: S62.308A Unspecified fracture of other metacarpal bone, initial encounter for closed fracture (principal)
CPT/HCPCS: 99204

== ENCOUNTER → 2024-10-05 13:36 | Outpatient (BNV) | payer OTHER, SELFPAY | PROVIDERS: Visit Provider Radiology Diagnostic Radiology | DX: M79.642 Pain in left hand (principal) | CPT/HCPCS: 73130 ==

== ENCOUNTER 2024-10-26 08:03 | Outpatient (REF) | payer OTHER, SELFPAY ==
--- NOTE | ~2024-10-26 | XR_ITS ---
EXAMINATION: XR HAND, LEFT CLINICAL INFORMATION: M79.642 - Pain in left hand COMPARISON: 10/05/2024, 09/27/2024. TECHNIQUE: PA, lateral, and oblique views of the left hand. FINDINGS: No significant change in tiny osseous densities adjacent to the ulnar aspects of the bases of the second and third proximal phalanges. These remain nonspecific. No gross healing fracture or suspicious bone lesion. Alignment is anatomic. Carpal bones intact and aligned. There is a small hooked osteophyte of the third metacarpal head. 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 Mild degenerative arthritis in the DIP joints of the digits. No focal soft tissue abnormality. XR/XR hand LT min 3V IMPRESSION: No significant interval change. Electronically signed by: Carlos Alberto Bergman MD 10/26/2024 12:07 PM [facility]
--- OUTSIDE RECORDS SUMMARY | 2024-10-26 08:06 | XMS_ITS | Encounter Summary ---
Author Organization [place] [address] Care Team Providers Care General Accountant Name Role Phone Courtney Potts MD Primary Care Provider [phone] Encounter Details Date Type Department Care Team (Latest Contact Info) Description 10/01/2024 11:00 AM EST - 10/01/2024 11:59 PM EST Hospital Encounter [facility] [address] [place] [address] Acute pain of left knee Discharge Disposition: Home or Self Care Social History Tobacco Use Types Packs/Day Years Used Date Smoking Tobacco: Never Smokeless Tobacco: Never Alcohol Use Standard Drinks/Week Comments Yes 0 (1 standard drink = 0.6 oz pur e alcohol) Sex and Gender Information Value Date Recorded Sex Assigned at Not on file Legal Sex Male 10:48 PM EST Gender Identity Not on file Sexual Orientation Not on file documented as of this encounter Medications at Time of Discharge amoxicillin-clavulan ate (AUGMENTIN) 875-125 mg per tablet Take 1 tablet by mouth 2 (two) times a day. for 10 days 09/27/2024 atorvastatin (LIPITOR) 40 mg tabletIndications:Mi xed hyperlipidemia,Encou nter for screening for cardiovascular disorders Take 1 tablet (40 mg total) by mouth 1 (one) time each day. 90 tablet 1 10/01/2024 cholecalciferol (VITAMIN D-3) 25 mcg (1,000 unit) tabletIndications:Vi tamin D deficiency Take 1 tablet (1,000 Units total) by mouth 1 (one) time each day. 90 tablet 1 10/01/2024 lidocaine (LIDODERM) 5 % patchIndications:Acu te pain [...] Care Team (Late st Contact Info) Description 11/02/2024 8:[address] [facility] Endoscopy [address] [place] [phone] Zuleyma Thapa MD [address] [address] 12/27/2024 10:[address] [facility] Xray [address] [place] [phone] documented as of this encounter Procedures Procedure Name Priority Date/Time Associated Diagnosis Comments XR KNEE 4+ VIEWS RIGHT Routine 10/01/2024 11:16 AM EST Acute pain of left knee documented in this encounter Results * XR Knee 4+ Views Right (10/01/2024 11:16 AM EST) Anatomical Region Laterality Modality Lower Extremities, Knee Right [facility] 10/01/2024 8:03 PM EST Impressions 10/01/2024 8:05 PM EST Minimal degenerative changes at the patellofemoral joint. POS - [id number] -------- FINAL REPORT -------- Dictated By: Josee Rowland Dictated Date: 10/01/2024 20:03 ET Assigned Physician: Josee Rowland Reviewed and Electronically Signed By: Josee Rowland Signed Date: 10/01/2024 20:05 ET Workstation ID: [id number] Transcribed By: Self Edit Transcribed Date: 10/01/2024 [...] changes at the patellofemoral joint. POS - [id number] -------- FINAL REPORT -------- Dictated By: Josee Rowland Dictated Date: 10/01/2024 20:03 ET Assigned Physician: Josee Rowland Reviewed and Electronically Signed By: Josee Rowland Signed Date: 10/01/2024 20:05 ET Workstation ID: [id number] Transcribed By: Self Edit Transcribed Date: 10/01/2024 20:03 ET us Kendall Flores MANAGER OF INTERNAL IMG XR PROCEDURES Final Resu lt documented in this encounter Visit Diagnoses Diagnosis Acute pain of left knee documented in this encounter Additional Health Concerns Assessment Noted Time PHQ-9 Depression Total Score: 0 10/01/19 25 11:00 AM EST documented as of this encounter Care Teams General Accountant Relationship Specialty Start Date End Date Courtney Potts MD [address] [place] [address] PCP - General Internal Medicine 07/10/21 documented as of this encounter
--- OUTSIDE RECORDS SUMMARY | 2024-10-26 08:06 | XMS_ITS | Encounter Summary ---
[facility] Address [address] [place] [address] Care Team Providers Care Studio Model Name Role Phone Courtney Potts MD Primary Care Provider [phone] Encounter Details Date Type Department Care Team ([facility] st Contact Info) Description 10/19/2024 Telephone Gastroenterology - [place] 175 [facility] 175 [facility] [address] [place] [phone] Niya Baker, GRANT 175 [facility] [place] [place], [place] [id number] Social History Tobacco Use Types Packs/Day Years [...] on file documented as of this encounter Progress Notes * Radha Hurley - 10/25/2024 2:37 PM EST SCHEDULED * Naomi Holley MA - 10/23/2024 8:27 AM EST Patient added to waitlist and will be called with first opening * Naomi Holley MA - 10/19/2024 1:43 PM EST 1st attempt to schedule an appointment patient left message to call back * Niya Baker NP - 10/19/2024 12:06 PM EST Please schedule diagnostic EGD for dysphagia next available. Patient is only available on Fridays. Thank you. documented in this encounter Plan of Treatment Upcoming Encounters Date Type Department Care Team (Late st Contact Info) Description 11/02/2024 8:30 AM EST Appointment [facility] Endoscopy [address] [place] [phone] Zuleyma Thapa MD [address] [address] 12/27/2024 10:15 AM EDT Appointment [facility] Xray [address] [place] [phone] documented as of this encounter Goals Goal Patient Goal Type Associated Problems Recent Progress Patient-Stated? Author INTERFACE ENGINEER LTG General No Smitha Matthews, INTERFACE ENGINEER Note: Pt will consume least restrictive PO diet without changes to medical or respiratory status to maintain adequate oral nutrition hydration INTERFACE ENGINEER [facility] General No Smitha Matthews, INTERFACE ENGINEER Note: Pt will participate in MBS Pt will participate with development of personalized HEP to perform 4-5xs/wk with min assist for modifications Pt will consume recommended diet textures and utilize swallow strategies independently documented as of this encounter Visit Diagnoses Not on filedocumented in this encounter Additional Health Concerns Assessment Noted Time PHQ-9 Depression Total Score: 0 10/01/19 25 11:00 AM EST documented as of this encounter Care Teams Studio Model Relationship Specialty Start Date End Date Courtney Potts MD [address] [place] [address] PCP - General Internal Medicine 07/10/21 documented as of this encounter
--- OUTSIDE RECORDS SUMMARY | 2024-10-26 08:06 | XMS_ITS | Encounter Summary ---
Author Organization [facility] Address [address] [place] [address] Care Team Providers Care Metal Flooring Installer Name Role Phone Courtney Potts MD Primary Care Provider [phone] Reason for Referral * Imaging (Routine) - Pending Review Specialty Diagnoses / Procedures Referred By Lorelei t Referred To Contact Radiology Diagnoses Choking, subsequent encounter Mixed hyperlipidemia Procedures US Head Neck Soft Tissue Kendall Flores NP [address] [place] [address] Phone: tel: fax: [address] Phone: tel: Referral ID Status Reason Start Date Expiration Date V isits Requested Visits Authorized [id number] Pending Review 10/01/2024 10/01/2025 1 1 Reason for Visit * Imaging (Routine) - Pending Review Specialty Diagnoses / Procedures Referred By Lorelei t Referred To Contact Radiology Diagnoses Choking, subsequent encounter Mixed hyperlipidemia Procedures US Head Neck Soft Tissue Kendall Flores, GRANT [address] [place] [address] Phone: tel: fax: [address] Phone: tel: Referral ID Status Reason Start Date Expiration Date V isits Requested Visits Authorized [id number] Pending Review 10/01/2024 10/01/2025 1 1 Encounter Details Date Type Department Care Team (Latest Contact Info) Description 10/02/2024 4:52 PM EST - 10/02/2024 11:59 PM EST Hospital Encounter Radiology Department - [address] [address] Choking, subsequent encounter; Mixed hyperlipidemia Discharge Disposition: [...] Info) Description 11/02/2024 8:30 AM EST Appointment [facility] Endoscopy [address] [place] [phone] Zuleyma Thapa MD 175 [facility] [address] [place] [address] 12/27/2024 10:15 AM EDT Appointment [facility] Xray [address] [place] [address] documented as of this encounter Procedures Procedure [...] Signed Date: 10/03/2024 10:11 ET Workstation ID: [id number] Transcribed By: Self Edit Transcribed Date: 10/03/2024 [...] Signed Date: 10/03/2024 10:11 ET Workstation ID: [id number] Transcribed By: Self Edit Transcribed Date: 10/03/2024 10:07 ET us Kendall Flores DYNAMOMETER TESTER ENGINE IMG US PROCEDURES Final Resu lt documented in this encounter Visit Diagnoses Diagnosis Choking, subsequent encounter Mixed hyperlipidemia documented in this encounter Additional Health Concerns Assessment Noted Time PHQ-9 Depression Total Score: 0 10/01/19 25 11:00 AM EST documented as of this encounter Care Teams Metal Flooring Installer Relationship Specialty Start Date End Date Courtney Potts MD [address] [place] [address] PCP - General Internal Medicine 07/10/21 documented as of this encounter
--- OUTSIDE RECORDS SUMMARY | 2024-10-26 08:06 | XMS_ITS | Encounter Summary ---
Author [facility] Address [address] [place] [address] Care Team Providers Care Logistics Coordinator Name Role Phone Courtney Potts MD Primary Care Provider [phone] Reason for Referral * Imaging (Routine) - Authorized Specialty Diagnoses / Procedures Referred By Lorelei joe Referred To Contact Radiology Diagnoses Choking, subsequent encounter Sensation of lump in throat Procedures XR Barium Swallow with Video and Speech Kendall Flores NP [address] [place] [address] Phone: tel: fax: CT Scan [address] Phone: tel: fax: Referral ID Status Reason Start Date Expiration Date V isits Requested Visits Authorized [id number] Authorized 10/22/2024 10/22/2025 1 1 Reason for Visit * Reason Onset Date Comments OTHER 10/22/2024 Speech pathology referral Encounter Details Date Type Department Care Team (Late st Contact Info) Description 10/22/2024 Telephone Adult Medicine [place] [id number] [place], [place] [phone] Kendall Flores NP [address] [place], [place] OTHER (Speech pathology referral) Social History Tobacco Use Types Packs/Day Years [...] as of this encounter Progress Notes * Kendall Flores NP - 10/22/2024 8:55 AM EST Patient was seen in the office on 10/01/2024. One of his complaints were ongoing choking episodes and sensation of lump in the throat. Patient had a barium swallow in the past and recommended be referred to speech pathologist. I couldnot find any referral to speech pathology. Therefore, a referral was sent. Today the speech pathologist message, recommended to change order to HUMIDIFIER MAINTENANCE WORKER videofluoroscopic study with barium. Order placed. documented in this encounter Plan of Treatment Upcoming Encounters Date Type Department Care Team (Late st Contact Info) Description 11/02/2024 8:30 AM EST Appointment [facility] Endoscopy [address] [place] [phone] Zuleyma Thapa MD [address] [address] 12/27/2024 10:15 AM EDT Appointment [facility] Xray [address] [place] [phone] Scheduled Orders Name Type Priority Associated Diagnoses Orde r Schedule XR Barium Swallow with Video and Speech Imaging Routine Choking, subsequent encounter Sensation of lump in throat Expected: 10/22/2024, Expires: 10/22/2025 documented as of this encounter Goals Goal Patient Goal Type Associated Problems Recent Progress Patient-Stated? Author HUMIDIFIER MAINTENANCE WORKER LTG General No Smitha Matthews, HUMIDIFIER MAINTENANCE WORKER Note: Pt will consume least restrictive PO diet without changes to medical or respiratory status to maintain adequate oral nutrition hydration HUMIDIFIER MAINTENANCE WORKER STG General No Smitha Matthews, HUMIDIFIER MAINTENANCE WORKER Note: Pt will participate in MBS Pt will participate with development of personalized HEP to perform 4-5xs/wk with min assist for modifications Pt will consume recommended diet textures and utilize swallow strategies independently documented as of this encounter Visit Diagnoses Diagnosis Choking, subsequent encounter- Primary Sensation of lump in throat Swelling, mass, or lump in head and neck documented in this encounter Orders HUMIDIFIER MAINTENANCE WORKER Count Last Ordered Date First Orde red Date HUMIDIFIER MAINTENANCE WORKER VIDEOFLUOROSCOPIC SWALLO W STUDY WITH BARIUM 1 10/22/2024 documented in this encounter Additional Health Concerns Assessment Noted Time PHQ-9 Depression Total Score: 0 10/01/19 25 11:00 AM EST documented as of this encounter Care Teams Logistics Coordinator Relationship Specialty Start Date End Date Courtney Potts MD [address] [place] [address] PCP - General Internal Medicine 07/10/21 documented as of this encounter
--- OUTSIDE RECORDS SUMMARY | 2024-10-26 08:06 | XMS_ITS | Encounter Summary ---
Author Organization [facility] Address [address] [place] [address] Care Team Providers Care Record Center Specialist Name Role Phone Courtney Potts MD Primary Care Provider [phone] Reason for Visit * Reason Comments Dyspepsia Encounter Details Date Type Department Care Team (Latest Contact Info) Description 10/19/2024 9:00 AM EST Consult Gastroenterology - [address] [place] [address] Niya Baker NP 175 [facility] [address] [place] [address] Pharyngoesophageal dysphagia (Primary Dx); Heartburn Social History Tobacco Use Types Packs/Day Years [...] Sign Reading Time Taken Comments Blood Pressure - - Pulse - - Temperature - - Respiratory Rate - - Oxygen Saturation - - Inhaled Oxygen Concentration - - Weight 87.1 kg (192 lb) 10/19/2024 8:59 AM EST Height 175.3 cm (5' 9 ) 10/19/2024 8:59 AM EST Body Mass Index 28.35 10/19/2024 8:59 AM EST documented in this encounter Progress Notes * Niya Baker NP - 10/19/2024 9:00 AM EST CONSULT REQUEST CHIEF COMPLAINT: Dysphagia HPI: Steven Farah is a 64 y.o. old male whose PMH includes vitamin D deficiency, hyperlipidemia, hiatalhernia, anxiety and alcohol abuse was referred to the gastroenterology department today for evaluation of dysphagia. Patient reports ongoing dysphagia for more than 3 years. He describes dysphagia varying from food getting stuck in his throat to food getting stuck behind his chest wall . This is intermittent and does not occur on a daily basis. He eats soft foods. He denies choking episodes requiring Heimlich maneuver. Per patient, he had a barium swallow completed in 2021. He was informed he has esophageal div erticulum and hernia. He endorses occasional heartburn. He takes omeprazole which he buys [id number] as needed. He denies nausea, vomiting, regurgitation, odynophagia, hematemesis, abdominal pain, loss of appetite, unintentional weight loss, change in bowel habits, melena or hematochezia. He d enies tobacco or marijuana use. Endorses drinking 8-10 bottles of beer on weekends. Colonoscopy 03/05/2022: Diverticulosis in the sigmoid colon. Internal hemorrhoids. No specimens collected. No historical EGD. Barium swallow 10/29/2021: Distal esophageal diverticulum. Sliding hiatal type hernia. ROS: GENERAL: No malaise, significant weight loss or fever HEENT: No changes in hearing or vision, nose bleeds NECK: No lumps, goiter, pain or significant neck swelling RESPIRATORY: No cough, wheezing or shortness of breath CARDIOVASCULAR: No chest pain GI: See HPI SKIN: No lesions, rash or itching PAST MEDICAL HISTORY: Patient Active Problem List Diagnosis Vitamin D deficiency Hyperlipidemia Hiatal hernia Anxiety Alcohol abuse PAST SURGICAL HISTORY: No past surgical history on file. SOCIAL HISTORY: Social History Tobacco Use Smoking status: Never Smokeless tobacco: Never Substance Use Topics Alcohol use: Yes Drug use: No FAMILY HISTORY: Family History Problem Relation Name Age of Onset Breast cancer Sister Breast cancer Mother Other (Other: Other ) Mother age 90, no meds Other (Other: Other ) Father age 79, no meds Colon cancer Paternal Grandmother from colon cancer at age 87 Other (Other: from pneumonia, no other illness known to pt ) Paternal Grandfather MEDICATIONS: Outpatient Medications Marked as Taking for the 10/19/24 encounter (Consult) with Niya Baker NP Medication Sig Dispense Refill amoxicillin-clavulanate (AUGMENTIN) 875-125 mg per tablet Take 1 tablet by mouth 2 (two) times a day. for 10 days atorvastatin (LIPITOR) 40 mg tablet Take 1 tablet (40 mg total) by mouth 1 (one) time each day. 90 tablet 1 cholecalciferol (VITAMIN D-3) 25 mcg (1,000 unit) tablet Take 1 tablet (1,000 Units total) by mouth1 (one) time each day. 90 tablet 1 lidocaine (LIDODERM) 5 % patch Apply 1 patch topically 1 (one) time each day. Remove & discard patch within 12 hours or as directed by MD. 10 patch 0 ALLERGIES: No Known Allergies PHYSICAL EXAM: Visit Vitals Ht 1.753 m (69 ) Wt 87.1 kg (192 lb) BMI 28.35 kg/m?? Smoking Status Never BSA 2.03 m?? APPEARANCE: Alert and in no acute distress EYES: Conjunctiva and sclera normal. MOUTH/THROAT: No erythema, exudates or lesions noted NECK: Neck supple, no adenopathy HEART: RRR with normal S1 and S2 LUNG: clear to auscultation ABDOMEN: soft non tender, no ascites, guarding, or rebound. RECTAL: Exam deferred NEURO: Awake, alert and oriented x 3 SKIN: Skin color, texture, turgor normal. LABS: No results found for: WBC , HGB , HCT , MCV , PLT Lab Results Component Value Date ALT 20 10/01/2024 AST 18 10/01/2024 ALKPHOS 80 10/01/2024 BILITOT 0.7 10/01/2024 IMAGING: No results found for this or any previous visit from the past 365 days. IMPRESSION: 1. Pharyngoesophageal dysphagia 2. Heartburn PLAN: Steven Farah is a 64 y.o. old male whose PMH includes vitamin D deficiency, hyperlipidemia, hiatalhernia, anxiety and alcohol abuse was referred presents for evaluation of dysphagia. 1. Pharyngoesophageal dysphagia: This is chronic for more than 2 years. No historical EGD. He was encouraged to cut food into small pieces, chew food thoroughly and pace self. There is a question if reported dysphagia is associated with esophageal diverticulum seen on barium swallow. I will schedule diagnostic EGD patient if needed for stricture/stenosis. Patient understands the risks of EGD include infection and bleeding. Tissue biopsy may be performedduring the procedure. 2. Heartburn: Occasional. He was encouraged to identify and eliminate triggers. He takes omeprazole as needed. Hepurchases omeprazole [id number]. Follow-up after EGD. Patient agrees with the above plan and understands the need to follow up as indicated. Please note, this note may have been created in part by using Lingu[employer] dictation software, and therefore, it may contain typographical and/or grammatical errors inherent in a voice recognition software program No orders of the defined types were placed in this encounter. None documented in this encounter Plan of Treatment Upcoming Encounters Date Type Department Care Team (Late st Contact Info) Description 11/02/2024 8:30 AM EST Appointment [facility] Endoscopy [address] [place] [address] Zuleyma Thapa MD [address] [address] 12/27/2024 10:15 AM EDT Appointment [facility] Xray [address] [place] [address] documented as of this encounter Visit Diagnoses Diagnosis Pharyngoesophageal dysphagia- Primary Dysphagia, pharyngoesophageal phase Heartburn documented in this encounter Historical Medications * This list may reflect changes made after this encounter. amoxicillin-clavu lanate (AUGMENTIN) 875-125 mg per tablet Take 1 tablet by mouth 2 (two) times a day. for 10 days 09/27/2024 added in this encounter Additional Health Concerns Assessment Noted Time PHQ-9 Depression Total Score: 0 10/01/19 25 11:00 AM EST documented as of this encounter Care Teams Record Center Specialist Relationship Specialty Start Date End Date Courtney Potts MD [address] [place] [address] PCP - General Internal Medicine 07/10/21 documented as of this encounter
--- OUTSIDE RECORDS SUMMARY | 2024-10-26 08:06 | XMS_ITS | Encounter Summary ---
Author Organization [facility] Address [address] [place] [address] Care Team Providers Care Positive Printer Operator Name Role Phone Courtney Potts MD Primary Care Provider [phone] Reason for Visit * Rehabilitation - Outpatient (Routine) - Authorized Specialty Diagnoses / Procedures Referred By Lorelei joe Referred To Contact Speech Pathology / Speech Therapy Diagnoses Choking, subsequent encounter Kendall Flores, TECHNICAL SALES MANAGER [address] [place] [address] Phone: tel: fax: Referral ID Status Reason Start Date Expiration Date Visits Requested Visits Authorized [id number] Authorized Specialty Services Required 10/01/2024 10/01/2025 35 35 Encounter Details Date Type Department Care Team (Late st Contact Info) Description 10/22/2024 8:45 AM EST Evaluation [facility] Speech Therapy [address] [place] [phone] Smitha Matthews, MARKET DEVELOPMENT SPECIALIST Dysphagia, oropharyngeal (Primary Dx); Choking, subsequent encounter Social History Tobacco Use Types Packs/Day Years [...] as of this encounter Progress Notes * DEBBI De La Fuente - 10/22/2024 8:45 AM EST Images from the original note were not included. [facility] SPEECH THERAPY [address] [address] Dept: [phone] Dept SPEECH THERAPY CLINICAL SWALLOWING EVALUATION Date: 10/22/2024 Visit Number: 1 Patient Name: Steven Farah : 1960 Age: 64 y.o. Gender: male Diagnosis: ICD-10-CM ICD-9-CM 1. Dysphagia, oropharyngeal R13.12 787.22 2. Choking, subsequent encounter T17.308D V58.89 Ambulatory referral to Speech Therapy 933.1 Date of Onset: 10/01/2024 Referring Provider: Kendall Flores NP Pt ID by: Self, Full Name and Language: Speaks and understands Sammarinese as preferred language with no sales service supervisor required Change in status: no Chart Reviewed: yes Medications: Discussed current medications that may impact therapy. Medication list obtained and reviewed. Refer to document in medical record. Advised Patient to contact MD with any questions regarding medications and importance of managing medication information. has no past medical history on file. has no past surgical history on file. has No Known Allergies. Precautions: n/a Previous Medical Care/Therapy: pt had barium swallow in 2021 with following dx 1. Premature spillage of barium into the piriform sinuses and vallecula with microvascular aspiration eliciting cough. Modified barium swallow with speech pathology and multiple consistency evaluation is recommended. 2. Distal esophageal diverticulum. 3. Sliding hiatal type hernia. History of Present Illness: Pt referred by PCP for MARKET DEVELOPMENT SPECIALIST swallow eval. Pt reports hx of dysphagia formore than 3 yrs. He did not know he was to f/u with MBS after BS. He is awaiting GI assessment for possible stricture. SUBJECTIVE Subjective Report: I choke on saliva Quality of Life: fair Current Functional Limitations: Reported by Patient coughing and choking with secretions and water,food sticking at level of larynx and below, nasal regurgitation Is the patient at Risk for Falls: No Prior Level of Function: Pt reports difficulty swallowing for 3+yrs. He recalls having difficulty with solids when sick as a child. Home Environment: Lives alone with his dog. Pain Assessment Pain Assessment: No/denies pain OBJECTIVE Pt on time for appt. Excellent historian. Dysarthria Dysarthria : No Baseline Assessment Respiratory Status: Room air Behavior/Cognition: Alert, Cooperative, Pleasant mood Dentition: Adequate Patient Positioning: Upright in chair Baseline Vocal Quality: Within Functional Limits Volitional Cough: Strong Volitional Swallow: Within Functional Limits Consistencies Assessed Consistencies Assessed: Yes Consistencies Assessed Consistencies Assessed: Yes Oral/Motor/Speech Labial ROM: Within Functional Limits Labial Symmetry: Within Functional Limits Lingual Appearance: [place], Moist Lingual ROM: Within Functional Limits (decreased elevation) Lingual Symmetry: Within Functional Limits Lingual Strength: Within Functional Limits Velum: Within Functional Limits Mandible: Within Functional Limits Facial ROM: Within Functional Limits Facial Symmetry: Within Functional Limits Thin Presentation: Cup; Self Fed Oral: WFL Pharyngeal: WFL; Decreased laryngeal elevation Amount: 6 oz Comments: No cough or vocal quality changes with small boluses or during 3oz water test Puree Presentation: Self Fed; Spoon Oral: WFL Pharyngeal: WFL Amount: 2oz Comments: no c/o of discomfort or cough or vocal quality changes Ground/Minced & Moist/ Moist Ground Presentation: Self Fed; Spoon Oral: WFL Pharyngeal: WFL (Pt reports more difficult to swallow but no changes in voice or cough assessed) Amount: 2 tsp Solid/Regular Presentation: Bite; Self Fed Oral: WFL Pharyngeal: WFL Amount: 1 grahame cracker Comments: Pt chose this texture due to jerry, dry texture. He ate large boluses and did not have c/o of discomfort or cough or vocal quality changes ASSESSMENT Steven Farah is a 64 y.o. male presenting for outpatient swallow evaluation with complaints of dysphagia. Significant clinical findings include: all phases of swallow WFL on office assessment. Theseclinical findings are not consistent with documented microaspiration in 2021 on barium swallow study and pt c/o of coughing and choking. MBS was scheduled during session and pt will f/u with outpt MARKET DEVELOPMENT SPECIALIST after MBS or sooner if needed. He was given printed info on IDDSI 6/0 and taught 2 exercises Lisa and CTAR. He gave indep return demo of both. . Rehabilitation Potential: Rehab Potential: Functional Adventist Has Yet to be Attained Motivation for Rehab: excellent Support Structure: Good Learning Needs: Were Patient Learning needs assessed Yes Learning Preferences: Explanation, Demonstration, and Printed Materials Barriers to Learning: No Barriers to Learning Patient Education: Applied Knowledge, Verbal Understanding, and Demonstrated Skills Educ on diet textures, swallow strategies, POC, MBS, HEP Goals Addressed This Visit's Progress MARKET DEVELOPMENT SPECIALIST LTG Pt will consume least restrictive PO diet without changes to medical or respiratory status to maintain adequate oral nutrition hydration MARKET DEVELOPMENT SPECIALIST STG Pt will participate in MBS Pt will participate with development of personalized HEP to perform 4-5xs/wk with min assist for modifications Pt will consume recommended diet textures and utilize swallow strategies independently PLAN POC Development/Review: Initial Evaluation Participants: Patient} Skilled Therapy Plan Required: YES- Reasons for Rehab and Medical Necessity -- Reduce Need for Assist with Functional Activity/ADL's/Mobility Plan MARKET DEVELOPMENT SPECIALIST Frequency: 1 day per week (1-2 visits depending on MBS results) MARKET DEVELOPMENT SPECIALIST Duration of Sessions: 30-45 min per session MARKET DEVELOPMENT SPECIALIST - Evaluation Status: Complete Planned Therapy Interventions: {INTERVENTIONS: Evaluation of Oral and Pharyngeal Swallowing Function (77484) Recommended Consults: [facility] [place] (This Date of Service 10/22/2024) Timed Services: Untimed Services: Swallowing Function Time Entry Clinical Swallow Eval Time Entry: 60 TOTAL TREATMENT TIME: 60 Minutes Documentation completed by DEBBI De La Fuente [facility] [address] [place] [address] Dept: [phone] Dept PATIENT NAME: Steven Farah : 1960 Certification: This is to certify that the above named patient, who is under my care, requires skilled Therapy services as described in the above treatment plan. I further certify that the services outlined in this plan are skilled and medically necessary. I have reviewed this plan for rehabilitation services, and I recommend that these services continue to meet the above stated goals and plan. SIGNATURE: DATE: Referring provider documented in this encounter Plan of Treatment Upcoming Encounters Date Type Department Care Team ([facility] Contact Info) Description 11/02/2024 8:30 AM EST Appointment [facility] Endoscopy [address] [place] [address] Zuleyma Thapa MD 175 [facility] [address] [place] [address] 12/27/2024 10:15 AM EDT Appointment [facility] Xray [address] [place] [address] documented as of this encounter Goals Goal Patient Goal Type Associated Problems Recent Progress Patient-Stated? Author MARKET DEVELOPMENT SPECIALIST LTG Smitha Reyes, MARKET DEVELOPMENT SPECIALIST Note: Pt will consume least restrictive PO diet without changes to medical or respiratory status to maintain adequate oral nutrition hydration MARKET DEVELOPMENT SPECIALIST STG General Smitha Romero, MARKET DEVELOPMENT SPECIALIST Note: Pt will participate in MBS Pt will participate with development of personalized HEP to perform 4-5xs/wk with min assist for modifications Pt will consume recommended diet textures and utilize swallow strategies independently documented as of this encounter Visit Diagnoses Diagnosis Dysphagia, oropharyngeal- Primary Dysphagia, oropharyngeal phase Choking, subsequent encounter documented in this encounter Orders Outpatient Referral Count Last Ordered Date Fir st Ordered Date AMB REFERRAL TO SPEECH THERAPY 1 10/22/2024 documented in this encounter Additional Health Concerns Assessment Noted Time PHQ-9 Depression Total Score: 0 10/01/19 25 11:00 AM EST documented as of this encounter Care Teams Positive Printer Operator Relationship Specialty Start Date End Date Courtney Potts MD [address] [place] [address] PCP - General Internal Medicine 07/10/21 documented as of this encounter
--- OUTSIDE RECORDS SUMMARY | 2024-10-26 08:06 | XMS_ITS | Clinical Summary ---
Author Organization [facility] [address] [place] [address] [place] [address] Phone Care Team Providers Care Superintendent Oil Field Drilling Name Role Phone Courtney Potts MD Primary Care Provider [phone] Allergies No known active allergies Medications atorvastatin (LIPITOR) 40 mg tabletIndications: Mixed hyperlipidemia,Enc ounter for screening for cardiovascular disorders Take 1 tablet (40 mg total) by mouth 1 (one) time each day. 90 tablet 1 10/01/19 25 Active cholecalciferol (VITAMIN D-3) 25 mcg (1,000 unit) tabletIndications: Vitamin D deficiency Take 1 tablet (1,000 Units total) by mouth 1 (one) time each day. 90 tablet 1 10/01/19 25 Active lidocaine (LIDODERM) 5 % patchIndications:A cute pain of right knee Apply 1 patch topically 1 (one) time each day. Remove & discard patch within 12 hours or as directed by MD. 10 patch 10/01/19 25 Active amoxicillin-clavul anate (AUGMENTIN) 875-125 mg per tablet Take 1 tablet by mouth 2 (two) times a day. for 10 days 09/27/19 25 Active atorvastatin (LIPITOR) 40 mg tablet Take 1 tablet (40 mg total) by mouth 1 (one) time each day. 09/22/19 24 025 Discontin ued(Reord er) cholecalciferol (VITAMIN D-3) 25 mcg (1,000 unit) tablet Take 1 tablet (1,000 Units total) by mouth 1 (one) time each day. 02/22/20 23 025 Discontin ued(Reord er) Active Problems Problem Noted Date Diagnosed Date [...] Encounters Date Type Department Care Team Description 10/22/2024 8:45 AM EST Evaluation [address] [address] Smitha Matthews, PUBLIC BATH ATTENDANT Dysphagia, oropharyngeal (Primary Dx); Choking, subsequent encounter 10/22/20[address] Plan [address] [facility] Speech [address] [address] 10/22/2024 Telephone Adult Medicine [address] [phone] Kendall Flores, GRANT OTHER (Speech pathology referral) 10/19/2024 9:00 AM EST Consult Gastroenterology - [address] [place] [address] Niya Baker, GRANT Pharyngoesophageal dysphagia (Primary Dx); Heartburn 10/19/2024 Telephone Gastroenterology - [place] [address] [place] [facility] [address] [place] [phone] Niya Baker NP 10/02/2024 4:52 PM EST - 10/02/2024 11:59 PM EST Hospital Encounter Radiology Department - [address] [address] Choking, subsequent encounter; Mixed hyperlipidemia Discharge Disposition: Home or Self Care 10/01/2024 11:00 AM EST - 10/01/2024 11:59 PM EST Hospital Encounter XRAY [address] [address] Acute pain of left knee Discharge Disposition: Home or Self Care 10/01/2024 10:00 AM EST Office Visit Adult Medicine [address] [address] Kendall Flores NP Acute pain of right [...] on file Sexual Orientation Not on file Obstetrics History Last Filed [...] Mass Index 28.35 10/19/2024 8:59 AM EST Plan of Treatment Upcoming Encounters Date Type Department Care Team (Late st Contact Info) Description 11/02/2024 8:30 AM EST Appointment [facility] Endoscopy [address] [place] [phone] Zuleyma Thapa MD [address] [address] 12/27/2024 10:15 AM EDT Appointment [facility] Xray [address] [place] [phone] Health Maintenance Due Date Last Done Comments Pneumococcal Vaccine: 50+ Years (1 of 1 - PCV) 2011 Social Influencers of Health Screening 08/15/2022 Depression [...] patient's age to complete this topic Meningococcal B Vacine Aged Out No lo nger eligible based on patient's age to complete [...] to complete this topic Zoster Vaccines Discontinued Goals Goal Patient Goal Type Associated Problems Recent Progress Patient-Stated? Author PUBLIC BATH ATTENDANT LTG General No Smitha Matthews, PUBLIC BATH ATTENDANT Note: Pt will consume least restrictive PO diet without changes to medical or respiratory status to maintain adequate oral nutrition hydration PUBLIC BATH ATTENDANT [facility] General No Smitha Matthews, PUBLIC BATH ATTENDANT Note: Pt will participate in MBS Pt will participate with development of personalized HEP to perform 4-5xs/wk with min assist for modifications Pt will consume recommended diet textures and utilize swallow strategies independently Procedures Procedure Name Priority Date/Time Associated Diagnosis [...] Signed Date: 10/03/2024 10:11 ET Workstation ID: [id number] Transcribed By: Self Edit Transcribed Date: 10/03/2024 [...] Signed Date: 10/03/2024 10:11 ET Workstation ID: [id number] Transcribed By: Self Edit Transcribed Date: 10/03/2024 10:07 ET us Kendall Flores NP IMG US PROCEDURES Final Resu lt * Prostate specific antigen screen (10/01/2024 11:39 AM EST) PSA 1.66 0.00 - 4.00 ng/mL LAB CHEMISTRY METHOD 10/01/2024 3:58 PM EST [facility] Blood Venous blood specimen / Unknown Venipuncture / Unknown 10/01/2024 11:39 AM EST 10/01/2024 11:39 AM EST Narrative [facility] - 10/01/2024 3:58 PM EST The Siemens Advia Centaur Chemiluminescent Immunoassay is used. Results obtained with different assay methods or kits cannot be used interchangeably. Results cannot be interpreted as absolute evidence of the presence or absence of malignant disease. Kendall Flores NP LAB BLOOD ORDERABLES Final R esult [facility] [address] [place] [address], [place] [phone] * (ABNORMAL) Lipid panel with reflex to direct LDL (10/01/2024 11:39 AM EST) Cholesterol 225(H) 0 - 200 mg/dL LAB CHEMISTRY METHOD 10/01/2024 3:57 PM [facility] Triglycerides 262(H) 0 - 150 mg/dL LAB CHEMISTRY METHOD 10/01/2024 3:57 PM [facility] HDL 48 >=40 mg/dL LAB CHEMISTRY METHOD 10/01/2024 3:57 PM [facility] LDL Calculated 125(H) 0 - 100 mg/dL LAB CHEMISTRY METHOD 10/01/2024 3:57 PM [facility] VLDL Cholesterol Thad 52.4 mg/dL LAB CHEMISTRY METHOD 10/01/2024 3:57 PM [facility] Non HDL Chol. (LDL+VLDL) 177(H) <145 mg/dL LAB CHEMISTRY METHOD 10/01/2024 3:57 PM [facility] Chol/HDL Ratio 4.7(H) 0.0 - 4.4 LAB CHEMISTRY METHOD 10/01/2024 3:57 PM [facility] Blood Venous blood specimen / Unknown Venipuncture / Unknown 10/01/2024 11:39 AM EST 10/01/2024 11:39 AM EST Kendall Flores NP LAB BLOOD ORDERABLES Final R esult [facility] [address] [place] [address], * (ABNORMAL) Comprehensive metabolic panel (10/01/2024 11:39 AM EST) Pathologist [facility] Sodium 139 133 - 145 mmol/L LAB CHEMISTRY METHOD 10/01/2024 3:57 PM [facility] Potassium 4.1 3.5 - 5.5 mmol/L LAB CHEMISTRY METHOD 10/01/2024 3:57 PM [facility] Chloride 105 96 - 110 mmol/L LAB CHEMISTRY METHOD 10/01/2024 3:57 PM [facility] CO2 31 21 - 32 mmol/L LAB CHEMISTRY METHOD 10/01/2024 3:57 PM [facility] Anion Gap 3 3 - 11 LAB CHEMISTRY METHOD 10/01/2024 3:57 PM [facility] Glucose 101(H) 70 - 100 mg/dL LAB CHEMISTRY METHOD 10/01/2024 3:57 PM [facility] BUN 14 5 - 25 mg/dL LAB CHEMISTRY METHOD 10/01/2024 3:57 PM [facility] Creatinine 0.92 0.70 - 1.30 mg/dL LAB CHEMISTRY METHOD 10/01/2024 3:57 PM [facility] eGFR 93 >=60 mL/min/1. 73m2 LAB CHEMISTRY METHOD 10/01/2024 3:57 PM [facility] Comment:Calculation based on the??Chronic Kidney Disease Epidemiology Collaboration (CKD-EPI) equation refit??without adjustment for race. BUN/Creatinine Ratio 15.2 LAB CHEMISTRY METHOD 10/01/2024 3:57 PM [facility] Calcium 9.5 8.5 - 10.5 mg/dL LAB CHEMISTRY METHOD 10/01/2024 3:57 PM [facility] AST (SGOT) 18 10 - 42 unit/L LAB CHEMISTRY METHOD 10/01/2024 3:57 PM [facility] ALT (SGPT) 20 10 - 60 unit/L LAB CHEMISTRY METHOD 10/01/2024 3:57 PM [facility] Alkaline Phosphatase 80 42 - 121 unit/L LAB CHEMISTRY METHOD 10/01/2024 3:57 PM [facility] Total Protein 7.4 6.0 - 8.0 g/dL LAB CHEMISTRY METHOD 10/01/2024 3:57 PM [facility] Albumin 3.9 3.2 - 5.0 g/dL LAB CHEMISTRY METHOD 10/01/2024 3:57 PM EST [facility] Total Bilirubin 0.7 0.0 - 1.4 mg/dL LAB CHEMISTRY METHOD 10/01/2024 3:57 PM EST [facility] Blood Venous blood specimen / Unknown Venipuncture / Unknown 10/01/2024 11:39 AM EST 10/01/2024 11:39 AM EST us Kendall Flores SHINGLE SHEARING MACHINE OPERATOR LAB BLOOD ORDERABLES Final R esult [facility] [address] [place] [address], * XR Knee 4+ Views Right (10/01/2024 11:16 AM EST) Anatomical Region Laterality Modality Lower Extremities, Knee Right Radiogra phic Imaging 10/01/2024 8:03 PM EST Impressions 10/01/2024 8:05 PM EST Minimal degenerative changes at the patellofemoral joint. POS - [id number] -------- FINAL REPORT -------- Dictated By: Josee Rowland Dictated Date: 10/01/2024 20:03 ET Assigned Physician: Josee Rowland Reviewed and Electronically Signed By: Josee Rowland Signed Date: 10/01/2024 20:05 ET Workstation ID: [id number] Transcribed By: Self Edit Transcribed Date: 10/01/2024 [...] changes at the patellofemoral joint. POS - [id number] -------- FINAL REPORT -------- Dictated By: Josee Rowland Dictated Date: 10/01/2024 20:03 ET Assigned Physician: Josee Rowland Reviewed and Electronically Signed By: Josee Rowland Signed Date: 10/01/2024 20:05 ET Workstation ID: [id number] Transcribed By: Self Edit Transcribed Date: 10/01/2024 20:03 ET Kendall Flores SHINGLE SHEARING MACHINE OPERATOR IMG XR PROCEDURES Final Resu lt from Last 3 Months Insurance [facility] Care Teams Superintendent Oil Field Drilling Relationship Specialty Start Date End Date Courtney Potts MD [address] [place] [address] PCP - General Internal Medicine 07/10/21
--- OUTSIDE RECORDS SUMMARY | 2024-10-26 08:06 | XMS_ITS | Encounter Summary ---
Author Organization [facility] Address [address] [place] [address] Care Team Providers Care Warehouse Analyst Name Role Phone Courtney Potts MD Primary Care Provider [phone] Encounter Details Date Type Department Care Team (Late st Contact Info) Description 10/22/2024 Plan of Care Documentation [facility] Speech Therapy 175 [facility] [address] [place] [phone] Social History Tobacco Use Types Packs/Day Years [...] on file documented as of this encounter Plan of Treatment Upcoming Encounters Date Type Department Care Team (Late st Contact Info) Description 11/02/2024 8:30 AM EST Appointment [facility] Endoscopy [address] [place] [phone] Zuleyma Thapa MD 175 [facility] [address] [place] [address] 12/27/2024 10:15 AM EDT Appointment [facility] Xray [address] [place] [phone] documented as of this encounter Goals Goal Patient Goal Type Associated Problems Recent Progress Patient-Stated? Author AZURE ARCHITECT LTG General No Smitha Matthews, AZURE ARCHITECT Note: Pt will consume least restrictive PO diet without changes to medical or respiratory status to maintain adequate oral nutrition hydration AZURE ARCHITECT STG General No Smitha Matthews, AZURE ARCHITECT Note: Pt will participate in MBS Pt [...] documented as of this encounter Care Teams Warehouse Analyst Relationship Specialty Start Date End Date Courtney Potts MD [address] [place] [address] PCP - General Internal Medicine 07/10/21 documented as of this encounter
--- OUTSIDE RECORDS SUMMARY | 2024-10-26 08:06 | XMS_ITS | Encounter Summary ---
Author Organization [facility] Address [id number] [place] [address] Care Team Providers Care Speech Language Pathologist Travel Name Role Phone Courtney Potts MD Primary Care Provider [phone] Reason for Referral * Rehabilitation - Outpatient (Routine) - Authorized Specialty Diagnoses / Procedures Referred By Lorelei joe Referred To Contact Speech Pathology / Speech Therapy Diagnoses Choking, subsequent encounter Kendall Flores NP [address] [place] [address] Phone: tel: fax: Referral ID Status Reason Start Date Expiration Date Visits Requested Visits Authorized [id number] Authorized Specialty Services Required 10/01/2024 10/01/2025 35 35 * Consultation (Routine) - Authorized Specialty Diagnoses / Procedures Referred By Lorelei joe Referred To Contact Gastroenterology Diagnoses Choking, subsequent encounter Kendall Flores NP [address] [place], [place] Phone: tel: fax: Gastroenterology - [place] [address] [place] [address] Phone: tel: fax: Referral ID Status Reason Start Date Expiration Date Visits Requested Visits Authorized [id number] Authorized Specialty Services Required 10/01/2024 10/01/2025 1 1 * Imaging (Routine) - Pending Review Specialty Diagnoses / Procedures Referred By Lorelei joe Referred To Contact Radiology Diagnoses Choking, subsequent encounter Mixed hyperlipidemia Procedures US Head Neck Soft Tissue Kendall Flores NP [address] [place] [address] Phone: tel: fax: [address] Phone: tel: Referral ID Status Reason Start Date Expiration Date V isits Requested Visits Authorized [id number] Pending Review 10/01/2024 10/01/2025 1 1 Reason for Visit * Reason Comments Knee Pain Encounter Details Date Type Department Care Team (Late st Contact Info) Description 10/01/2024 10:00 AM EST Office Visit Adult Medicine [address] [phone] Kendall Flores NP [address] [place] [address] Acute pain of right knee (Primary Dx); [...] in this encounter Ordered Prescriptions Prescription Sig Dispense Quantity Refills Last Filled Start Date End Date lidocaine (LIDODERM) 5 % patchIndications:Acu te pain of right knee Apply 1 patch topically 1 (one) time each day. Remove & discard patch within 12 hours or as directed by MD. 10 patch 10/01/2024 cholecalciferol (VITAMIN D-3) 25 mcg (1,000 unit) tabletIndications:Vi tamin D deficiency Take 1 tablet (1,000 Units total) by mouth 1 (one) time each day. 90 tablet 1 10/01/2024 atorvastatin (LIPITOR) 40 mg tabletIndications:Mi xed hyperlipidemia,Encou [...] today for chronic medical and medication management. SUBJECTIVE Steven is a 64 y.o. male who complains [...] Health Screening Never done Kendall Flores NP ADULT [address] [address] Today's documentation was made using voice recognition software.This note may contain grammatical errors secondary to this software. documented in this encounter Plan of Treatment Upcoming Encounters Date Type Department Care Team (Late st Contact Info) Description 11/02/2024 8:30 AM EST Appointment [facility] Endoscopy [address] [place] [phone] Zuleyma Thapa MD 175 [facility] [address] [place], [place] [phone] 12/27/2024 10:15 AM EDT Appointment [facility] [place] [address] Scheduled Referrals Name Type Priority Associated Diagnoses [...] Signed Date: 10/03/2024 10:11 ET Workstation ID: [id number] Transcribed By: Self Edit Transcribed Date: 10/03/2024 [...] Signed Date: 10/03/2024 10:11 ET Workstation ID: [id number] Transcribed By: Self Edit Transcribed Date: 10/03/2024 [...] NP LAB BLOOD ORDERABLES Final R esult [facility] [address] [place] [address], [place] [phone] * (ABNORMAL) Comprehensive metabolic panel (10/01/2024 11:39 AM EST) [facility] Signature Sodium 139 133 - 145 mmol/L LAB [...] 3:57 PM [facility] Total Bilirubin 0.7 0.0 - 1.4 mg/dL LAB CHEMISTRY METHOD 10/01/2024 3:57 PM [facility] Blood Venous blood specimen / Unknown Venipuncture / Unknown 10/01/2024 11:39 AM EST 10/01/2024 11:39 AM EST Kendall Flores OYSTER GRADER LAB BLOOD ORDERABLES Final R esult [facility] [address] [place] [address], * (ABNORMAL) Lipid panel with reflex to [...] 3:57 PM EST [facility] Chol/HDL Ratio 4.7(H) 0.0 - 4.4 LAB CHEMISTRY METHOD 10/01/2024 3:57 PM EST [facility] Blood Venous blood specimen / Unknown Venipuncture / Unknown 10/01/2024 11:39 AM EST 10/01/2024 11:39 AM EST us Kendall Flores OYSTER GRADER LAB BLOOD ORDERABLES Final R esult [facility]) [facility] [address] [place] [address], [place] [phone] * XR Knee 4+ Views Right (10/01/2024 11:16 AM EST) Anatomical Region Laterality Modality Lower Extremities, Knee Right Radiogra phic Imaging 10/01/2024 8:03 PM EST Impressions 10/01/2024 8:05 PM EST Minimal degenerative changes at the patellofemoral joint. POS - [id number] -------- FINAL REPORT -------- Dictated By: Josee Rowland Dictated Date: 10/01/2024 20:03 ET Assigned Physician: Josee Rowland Reviewed and Electronically Signed By: Josee Rowland Signed Date: 10/01/2024 20:05 ET Workstation ID: [id number] Transcribed By: Self Edit Transcribed Date: 10/01/2024 [...] changes at the patellofemoral joint. POS - [id number] -------- FINAL REPORT -------- Dictated By: Josee Rowland Dictated Date: 10/01/2024 20:03 ET Assigned Physician: Josee Rowland Reviewed and Electronically Signed By: Josee Rowland Signed Date: 10/01/2024 20:05 ET Workstation ID: [id number] Transcribed By: Self Edit Transcribed Date: 10/01/2024 20:03 ET us Kendall Flores OYSTER GRADER IMG XR PROCEDURES Final Resu lt documented [...] documented as of this encounter Care Teams Speech Language Pathologist Travel Relationship Specialty Start Date End Date Courtney Potts MD [address] [place] [address] PCP - General Internal Medicine 07/10/21 documented as of this encounter
== END 2024-10-26 08:04 | disposition home or self-care (01) ==
LOC: HO.HOSX 08:03
DX: M79.642 Pain in left hand (principal); S62.308A Unspecified fracture of other metacarpal bone, initial encounter for closed fracture
CPT/HCPCS: 73130; 99212

== ENCOUNTER 2024-10-26 09:09 | Outpatient (AMB) | payer OTHER, SELFPAY ==
--- OUTSIDE RECORDS SUMMARY | 2024-10-26 09:32 | XMS_ITS | Encounter Summary ---
Author Organization [facility] Address [address] [place] [address] Care Team Providers Care Freight Sorter Name Role Phone Courtney Potts MD Primary Care Provider [phone] Encounter Details Date Type Department Care Team ([facility] st Contact Info) Description 10/19/2024 Telephone Gastroenterology - [place] 175 [facility] 175 [facility] [place] [facility] [address] [place] [phone] Niya Baker, GRANT 175 [facility] [address] [place], [place] [phone] Social History Tobacco Use Types Packs/Day Years [...] Info) Description 11/02/2024 8:30 AM EST Appointment [facility] Endoscopy [address] [place] [phone] Zuleyma Thapa MD [address] [address] 12/27/2024 10:15 AM EDT Appointment [facility] Xray [address] [place] [phone] documented as of this encounter Goals Goal Patient Goal Type Associated Problems Recent Progress Patient-Stated? Author STEAM SHOVEL OPERATOR LTG General No Smitha Matthews, STEAM SHOVEL OPERATOR Note: Pt will consume least restrictive PO diet without changes to medical or respiratory status to maintain adequate oral nutrition hydration STEAM SHOVEL OPERATOR [facility] General No Smitha Matthews, STEAM SHOVEL OPERATOR Note: Pt will participate in MBS Pt [...] documented as of this encounter Care Teams Freight Sorter Relationship Specialty Start Date End Date Courtney Potts MD [address] [place] [address] PCP - General Internal Medicine 07/10/21 documented as of this encounter
--- OUTSIDE RECORDS SUMMARY | 2024-10-26 09:32 | XMS_ITS | Encounter Summary ---
Author Organization [facility] Address [address] [place] [address] Care Team Providers Care Car Racer Name Role Phone Courtney Potts MD Primary Care Provider [phone] Reason for Referral * Imaging (Routine) - Pending Review Specialty Diagnoses / Procedures Referred By Lorelei t Referred To Contact Radiology Diagnoses Choking, subsequent encounter Mixed hyperlipidemia Procedures US Head Neck Soft Tissue Kendall Flores NP [address] [place] [address] Phone: tel: fax: [address] Phone: tel: Referral ID Status Reason Start Date Expiration Date V isits Requested Visits Authorized [id number] Pending Review 10/01/2024 10/01/2025 1 1 Reason for Visit * Imaging (Routine) - Pending Review Specialty Diagnoses / Procedures Referred By Lorelei t Referred To Contact Radiology Diagnoses Choking, subsequent encounter Mixed hyperlipidemia Procedures US Head Neck Soft Tissue Kendall Flores, GRANT [address] [place] [address] Phone: tel: fax: [address] Phone: tel: Referral ID Status Reason Start Date Expiration Date V isits Requested Visits Authorized [id number] Pending Review 10/01/2024 10/01/2025 1 1 Encounter Details Date Type Department Care Team (Latest Contact Info) Description 10/02/2024 4:52 PM EST - 10/02/2024 11:59 PM EST Hospital Encounter Radiology Department - [address] [address] Choking, subsequent encounter; Mixed hyperlipidemia Discharge Disposition: [...] Info) Description 11/02/2024 8:30 AM EST Appointment [facility] Endoscopy [address] [place] [phone] Zuleyma Thapa MD 175 [facility] [address] [place] [address] 12/27/2024 10:15 AM EDT Appointment [facility] Xray [address] [place] [address] documented as of this encounter [...] Signed Date: 10/03/2024 10:11 ET Workstation ID: [id number] Transcribed By: Self Edit Transcribed Date: 10/03/2024 [...] Signed Date: 10/03/2024 10:11 ET Workstation ID: [id number] Transcribed By: Self Edit Transcribed Date: 10/03/2024 10:07 ET us Kendall Flores SERVICE ESTABLISHMENT ATTENDANT IMG US PROCEDURES Final Resu lt documented in this encounter Visit Diagnoses Diagnosis Choking, subsequent encounter Mixed hyperlipidemia documented in this encounter Additional Health Concerns Assessment Noted Time PHQ-9 Depression Total Score: 0 10/01/19 25 11:00 AM EST documented as of this encounter Care Teams Car Racer Relationship Specialty Start Date End Date Courtney Potts MD [address] [place] [address] PCP - General Internal Medicine 07/10/21 documented as of this encounter
--- OUTSIDE RECORDS SUMMARY | 2024-10-26 09:32 | XMS_ITS | Encounter Summary ---
Author Organization [facility] Address [address] [place] [address] Care Team Providers Care Supervisor Compounding And Finishing Name Role Phone Courtney Potts MD Primary Care Provider [phone] Reason for Referral * Imaging (Routine) - Authorized Specialty Diagnoses / Procedures Referred By Lorelei joe Referred To Contact Radiology Diagnoses Choking, subsequent encounter Sensation of lump in throat Procedures XR Barium Swallow with Video and Speech Kendall Flores NP [address] [place] [address] Phone: tel: fax: CT Scan [address] Phone: tel: fax: Referral ID Status Reason Start Date Expiration Date V isits Requested Visits Authorized [id number] Authorized 10/22/2024 10/22/2025 1 1 Reason for Visit * Reason Onset Date Comments OTHER 10/22/2024 Speech pathology referral Encounter Details Date Type Department Care Team (Late st Contact Info) Description 10/22/2024 Telephone Adult Medicine [place] [id number] [place], [place] [phone] Kendall Flores NP [address] [place], [place] OTHER (Speech pathology referral) Social History [...] pathologist message, recommended to change order to CENTRAL SUPPLY TECHNICIAN videofluoroscopic study with barium. Order placed. documented in this encounter Plan of Treatment Upcoming Encounters Date Type Department Care Team (Late st Contact Info) Description 11/02/2024 8:30 AM EST Appointment [facility] Endoscopy [address] [place] [phone] Zuleyma Thapa MD [address] [address] 12/27/2024 10:15 AM EDT Appointment [facility] Xray [address] [place] [phone] Scheduled Orders Name Type Priority Associated Diagnoses Orde r Schedule XR Barium Swallow with Video and Speech Imaging Routine Choking, subsequent encounter Sensation of lump in throat Expected: 10/22/2024, Expires: 10/22/2025 documented as of this encounter Goals Goal Patient Goal Type Associated Problems Recent Progress Patient-Stated? Author CENTRAL SUPPLY TECHNICIAN LTG General No Smitha Matthews, CENTRAL SUPPLY TECHNICIAN Note: Pt will consume least restrictive PO diet without changes to medical or respiratory status to maintain adequate oral nutrition hydration CENTRAL SUPPLY TECHNICIAN STG General No Smitha Matthews, CENTRAL SUPPLY TECHNICIAN Note: Pt will participate in MBS Pt will participate with development of personalized HEP to perform 4-5xs/wk with min assist for modifications Pt will consume recommended diet textures and utilize swallow strategies independently documented as of this encounter Visit Diagnoses Diagnosis Choking, subsequent encounter- Primary Sensation of lump in throat Swelling, mass, or lump in head and neck documented in this encounter Orders CENTRAL SUPPLY TECHNICIAN Count Last Ordered Date First Orde red Date CENTRAL SUPPLY TECHNICIAN VIDEOFLUOROSCOPIC SWALLO W STUDY WITH BARIUM 1 10/22/2024 documented in this encounter Additional Health Concerns Assessment Noted Time PHQ-9 Depression Total Score: 0 10/01/19 25 11:00 AM EST documented as of this encounter Care Teams Supervisor Compounding And Finishing Relationship Specialty Start Date End Date Courtney Potts MD [address] [place] [address] PCP - General Internal Medicine 07/10/21 documented as of this encounter
--- OUTSIDE RECORDS SUMMARY | 2024-10-26 09:32 | XMS_ITS | Encounter Summary ---
Author Organization [facility] Address [address] [place] [address] Care Team Providers Care Commission Clerk Name Role Phone Courtney Potts MD Primary Care Provider [phone] Reason for Visit * Rehabilitation - Outpatient (Routine) - Authorized Specialty Diagnoses / Procedures Referred By Lorelei joe Referred To Contact Speech Pathology / Speech Therapy Diagnoses Choking, subsequent encounter Kendall Flores, SENIOR PROCESS ANALYST [address] [place] [address] Phone: tel: fax: Referral ID Status Reason Start Date Expiration Date Visits Requested Visits Authorized [id number] Authorized Specialty Services Required 10/01/2024 10/01/2025 35 35 Encounter Details Date Type Department Care Team (Late st Contact Info) Description 10/22/2024 8:45 AM EST Evaluation [facility] Speech Therapy [address] [place] [phone] Smitha Matthews, CARE CONSULTANT Dysphagia, oropharyngeal (Primary Dx); Choking, subsequent encounter [...] from the original note were not included. [facility] SPEECH THERAPY [address] [address] Dept: [phone] Dept SPEECH THERAPY CLINICAL SWALLOWING EVALUATION Date: 10/22/2024 Visit Number: 1 Patient Name: Steven Farah : 1960 Age: 64 y.o. Gender: male Diagnosis: ICD-10-CM ICD-9-CM 1. Dysphagia, oropharyngeal R13.12 787.22 2. Choking, subsequent encounter T17.308D V58.89 Ambulatory referral to Speech Therapy 933.1 Date of Onset: 10/01/2024 Referring Provider: Kendall Flores NP Pt ID by: Self, Full Name and Language: Speaks and understands [place] as preferred language with no cook manager required Change in status: no Chart Reviewed: [...] Present Illness: Pt referred by PCP for CARE CONSULTANT swallow eval. Pt reports hx of dysphagia [...] Labial Symmetry: Within Functional Limits Lingual Appearance: Hytop, Moist Lingual ROM: Within Functional Limits (decreased [...] session and pt will f/u with outpt CARE CONSULTANT after MBS or sooner if needed. He was given printed info on IDDSI 6/0 and taught 2 exercises Lisa and CTAR. He gave indep return demo of both. . Rehabilitation Potential: Rehab Potential: Functional Restorationist Has Yet to be Attained Motivation for Rehab: excellent Support Structure: Good Learning Needs: Were Patient Learning needs assessed Yes Learning Preferences: Explanation, Demonstration, and Printed Materials Barriers to Learning: No Barriers to Learning Patient Education: Applied Knowledge, Verbal Understanding, and Demonstrated Skills Educ on diet textures, swallow strategies, POC, MBS, HEP Goals Addressed This Visit's Progress CARE CONSULTANT LTG Pt will consume least restrictive PO diet without changes to medical or respiratory status to maintain adequate oral nutrition hydration CARE CONSULTANT STG Pt will participate in MBS Pt will participate with development of personalized HEP to perform 4-5xs/wk with min assist for modifications Pt will consume recommended diet textures and utilize swallow strategies independently PLAN POC Development/Review: Initial Evaluation Participants: Patient} Skilled Therapy Plan Required: YES- Reasons for Rehab and Medical Necessity -- Reduce Need for Assist with Functional Activity/ADL's/Mobility Plan CARE CONSULTANT Frequency: 1 day per week (1-2 visits depending on MBS results) CARE CONSULTANT Duration of Sessions: 30-45 min per session CARE CONSULTANT - Evaluation Status: Complete Planned Therapy Interventions: {INTERVENTIONS: Evaluation of Oral and Pharyngeal Swallowing Function (05813) Recommended Consults: [facility] BILLING (This Date of Service 10/22/2024) Timed Services: Untimed Services: Swallowing Function Time Entry Clinical Swallow Eval Time Entry: 60 TOTAL TREATMENT TIME: 60 Minutes Documentation completed by DEBBI De La Fuente [facility] SPEECH THERAPY [address] [place] [address] Dept: [phone] Dept PATIENT NAME: Steven Farah : 1960 [...] Upcoming Encounters Date Type Department Care Team ([facility] Contact Info) Description 11/02/2024 8:30 AM EST Appointment [facility] Endoscopy [address] [place] [address] Zuleyma Thapa MD 175 [facility] [address] [place] [address] 12/27/2024 10:15 AM EDT Appointment [facility] Xray [address] [place] [address] documented as of this encounter Goals Goal Patient Goal Type Associated Problems Recent Progress Patient-Stated? Author CARE CONSULTANT LTG Smitha Reyes, CARE CONSULTANT Note: Pt will consume least restrictive PO diet without changes to medical or respiratory status to maintain adequate oral nutrition hydration CARE CONSULTANT STG General Smitha Romero, CARE CONSULTANT Note: Pt will participate in MBS Pt [...] documented as of this encounter Care Teams Commission Clerk Relationship Specialty Start Date End Date Courtney Potts MD [address] [place] [address] PCP - General Internal Medicine 07/10/21 documented as of this encounter
--- OUTSIDE RECORDS SUMMARY | 2024-10-26 09:32 | XMS_ITS | Clinical Summary ---
Author Organization [facility] [address] [place] [address] [place] [phone] Phone Care Team Providers Care Documentation Writer Name Role Phone Courtney Potts MD Primary Care Provider [phone] Allergies No known active allergies Medications atorvastatin [...] Team Description 10/22/2024 8:45 AM EST Evaluation [address] [address] Smitha Matthews, MACHINE TOOL TECHNICIAN INSTRUCTOR Dysphagia, oropharyngeal (Primary Dx); Choking, subsequent encounter 10/22/2024 Plan of Care Documentation [facility] Speech [address] [address] 10/22/2024 Telephone Adult Medicine [address] [phone] Kendall Flores, GRANT OTHER (Speech pathology referral) 10/19/2024 9:00 AM EST Consult Gastroenterology - [address] [place] [address] Niya Baker, GRANT Pharyngoesophageal dysphagia (Primary Dx); Heartburn 10/19/2024 Telephone Gastroenterology - [place] [address] [facility] [address] [place] [phone] Niya Baker NP 10/02/2024 4:52 PM EST - 10/02/2024 11:59 PM EST Hospital Encounter Radiology Department - [address] [address] Choking, subsequent encounter; Mixed hyperlipidemia Discharge Disposition: Home or Self Care 10/01/2024 11:00 AM EST - 10/01/2024 11:59 PM EST Hospital Encounter XRAY [address] [address] Acute pain of left knee Discharge Disposition: Home or Self Care 10/01/2024 10:00 AM EST Office Visit Adult Medicine [address] [address] Kendall Flores NP Acute pain of right [...] Description 11/02/2024 8:30 AM EST Appointment [facility] Endoscopy [address] [place] [phone] Zuleyma Thapa MD [address] [address] 12/27/2024 10:15 AM EDT Appointment [facility] Xray [address] [place] [phone] Health Maintenance Due Date Last Done Comments [...] Type Associated Problems Recent Progress Patient-Stated? Author MACHINE TOOL TECHNICIAN INSTRUCTOR LTG General No Smitha Matthews, MACHINE TOOL TECHNICIAN INSTRUCTOR Note: Pt will consume least restrictive PO diet without changes to medical or respiratory status to maintain adequate oral nutrition hydration MACHINE TOOL TECHNICIAN INSTRUCTOR [facility] General No Smitha Matthews, MACHINE TOOL TECHNICIAN INSTRUCTOR Note: Pt will participate in MBS Pt [...] Signed Date: 10/03/2024 10:11 ET Workstation ID: [id number] Transcribed By: Self Edit Transcribed Date: 10/03/2024 [...] Signed Date: 10/03/2024 10:11 ET Workstation ID: [id number] Transcribed By: Self Edit Transcribed Date: 10/03/2024 10:07 ET us Kendall Flores NP IMG US PROCEDURES Final Resu lt * Prostate specific antigen screen (10/01/2024 11:39 AM EST) PSA 1.66 0.00 - 4.00 ng/mL LAB CHEMISTRY METHOD 10/01/2024 3:58 PM EST [facility] Blood Venous blood specimen / Unknown Venipuncture / Unknown 10/01/2024 11:39 AM EST 10/01/2024 11:39 AM EST Narrative [facility] - 10/01/2024 3:58 PM EST The Siemens Advia Centaur Chemiluminescent Immunoassay is used. Results obtained with different assay methods or kits cannot be used interchangeably. Results cannot be interpreted as absolute evidence of the presence or absence of malignant disease. Kendall Flores NP LAB BLOOD ORDERABLES Final R esult [facility] [address] [place] [address], [place] [phone] * (ABNORMAL) Lipid panel with reflex to direct LDL (10/01/2024 11:39 AM EST) Cholesterol 225(H) 0 - 200 mg/dL LAB CHEMISTRY METHOD 10/01/2024 3:57 PM [facility] Triglycerides 262(H) 0 - 150 mg/dL LAB CHEMISTRY METHOD 10/01/2024 3:57 PM [facility] HDL 48 >=40 mg/dL LAB CHEMISTRY METHOD 10/01/2024 3:57 PM [facility] LDL Calculated 125(H) 0 - 100 mg/dL LAB CHEMISTRY METHOD 10/01/2024 3:57 PM [facility] VLDL Cholesterol Thad 52.4 mg/dL LAB CHEMISTRY METHOD 10/01/2024 3:57 PM [facility] Non HDL Chol. (LDL+VLDL) 177(H) <145 mg/dL LAB CHEMISTRY METHOD 10/01/2024 3:57 PM [facility] Chol/HDL Ratio 4.7(H) 0.0 - 4.4 LAB CHEMISTRY METHOD 10/01/2024 3:57 PM [facility] Blood Venous blood specimen / Unknown Venipuncture / Unknown 10/01/2024 11:39 AM EST 10/01/2024 11:39 AM EST Kendall Flores NP LAB BLOOD ORDERABLES Final R esult [facility] [address] [place] [address], * (ABNORMAL) Comprehensive metabolic panel (10/01/2024 11:39 AM EST) Pathologist [facility] Sodium 139 133 - 145 mmol/L LAB CHEMISTRY METHOD 10/01/2024 3:57 PM [facility] Potassium 4.1 3.5 - 5.5 mmol/L LAB CHEMISTRY METHOD 10/01/2024 3:57 PM [facility] Chloride 105 96 - 110 mmol/L LAB CHEMISTRY METHOD 10/01/2024 3:57 PM [facility] CO2 31 21 - 32 mmol/L LAB CHEMISTRY METHOD 10/01/2024 3:57 PM [facility] Anion Gap 3 3 - 11 LAB CHEMISTRY METHOD 10/01/2024 3:57 PM [facility] Glucose 101(H) 70 - 100 mg/dL LAB CHEMISTRY METHOD 10/01/2024 3:57 PM [facility] BUN 14 5 - 25 mg/dL LAB CHEMISTRY METHOD 10/01/2024 3:57 PM [facility] Creatinine 0.92 0.70 - 1.30 mg/dL LAB CHEMISTRY METHOD 10/01/2024 3:57 PM [facility] eGFR 93 >=60 mL/min/1. 73m2 LAB CHEMISTRY METHOD 10/01/2024 3:57 PM [facility] Comment:Calculation based on the??Chronic Kidney Disease Epidemiology Collaboration (CKD-EPI) equation refit??without adjustment for race. BUN/Creatinine Ratio 15.2 LAB CHEMISTRY METHOD 10/01/2024 3:57 PM [facility] Calcium 9.5 8.5 - 10.5 mg/dL LAB CHEMISTRY METHOD 10/01/2024 3:57 PM [facility] AST (SGOT) 18 10 - 42 unit/L LAB CHEMISTRY METHOD 10/01/2024 3:57 PM [facility] ALT (SGPT) 20 10 - 60 unit/L LAB CHEMISTRY METHOD 10/01/2024 3:57 PM [facility] Alkaline Phosphatase 80 42 - 121 unit/L LAB CHEMISTRY METHOD 10/01/2024 3:57 PM [facility] Total Protein 7.4 6.0 - 8.0 g/dL LAB CHEMISTRY METHOD 10/01/2024 3:57 PM [facility] Albumin 3.9 3.2 - 5.0 g/dL LAB CHEMISTRY METHOD 10/01/2024 3:57 PM EST [facility] Total Bilirubin 0.7 0.0 - 1.4 mg/dL LAB CHEMISTRY METHOD 10/01/2024 3:57 PM EST [facility] Blood Venous blood specimen / Unknown Venipuncture / Unknown 10/01/2024 11:39 AM EST 10/01/2024 11:39 AM EST us Kendall Flores ESTIMATE CLERK LAB BLOOD ORDERABLES Final R esult [facility] [address] [place] [address], * XR Knee 4+ Views Right (10/01/2024 11:16 AM EST) Anatomical Region Laterality Modality Lower Extremities, Knee Right Radiogra phic Imaging 10/01/2024 8:03 PM EST Impressions 10/01/2024 8:05 PM EST Minimal degenerative changes at the patellofemoral joint. POS - [id number] -------- FINAL REPORT -------- Dictated By: Josee Rowladn Dictated Date: 10/01/2024 20:03 ET Assigned Physician: Josee Rowland Reviewed and Electronically Signed By: Josee Rowland Signed Date: 10/01/2024 20:05 ET Workstation ID: [id number] Transcribed By: Self Edit Transcribed Date: 10/01/2024 [...] changes at the patellofemoral joint. POS - [id number] -------- FINAL REPORT -------- Dictated By: Josee Rowland Dictated Date: 10/01/2024 20:03 ET Assigned Physician: Josee Rowland Reviewed and Electronically Signed By: Josee Rowland Signed Date: 10/01/2024 20:05 ET Workstation ID: [id number] Transcribed By: Self Edit Transcribed Date: 10/01/2024 20:03 ET Kendall Flores ESTIMATE CLERK IMG XR PROCEDURES Final Resu lt from Last 3 Months Insurance [facility] Care Teams Documentation Writer Relationship Specialty Start Date End Date Courtney Potts MD [address] [place] [phone] PCP - General Internal Medicine 07/10/21
--- OUTSIDE RECORDS SUMMARY | 2024-10-26 09:32 | XMS_ITS | Encounter Summary ---
Author Organization [place] [address] Care Team Providers Care Health Promotion Manager Name Role Phone Courtney Potts MD Primary Care Provider [phone] Encounter Details Date Type Department Care Team (Latest Contact Info) Description 10/01/2024 11:00 AM EST - 10/01/2024 11:59 PM EST Hospital Encounter [facility] [address] [place] [address] Acute pain of left knee Discharge Disposition: [...] Info) Description 11/02/2024 8:30 AM EST Appointment [facility] Endoscopy [address] [place] [phone] Zuelyma Thapa MD [address] [address] 12/27/2024 10:15 AM EDT Appointment [facility] Xray [address] [place] [phone] documented as of this encounter Procedures Procedure Name Priority Date/Time Associated Diagnosis Comments XR KNEE 4+ VIEWS RIGHT Routine 10/01/2024 11:16 AM EST Acute pain of left knee documented in this encounter Results * XR Knee 4+ Views Right (10/01/2024 11:16 AM EST) Anatomical Region Laterality Modality Lower Extremities, Knee Right [facility] 10/01/2024 8:03 PM EST Impressions 10/01/2024 8:05 PM EST Minimal degenerative changes at the patellofemoral joint. POS - [id number] -------- FINAL REPORT -------- Dictated By: Josee Rowland Dictated Date: 10/01/2024 20:03 ET Assigned Physician: Joese Rowland Reviewed and Electronically Signed By: Josee Rowland Signed Date: 10/01/2024 20:05 ET Workstation ID: [id number] Transcribed By: Self Edit Transcribed Date: 10/01/2024 [...] changes at the patellofemoral joint. POS - [id number] -------- FINAL REPORT -------- Dictated By: Josee Rowland Dictated Date: 10/01/2024 20:03 ET Assigned Physician: Josee Rowland Reviewed and Electronically Signed By: Josee Rowland Signed Date: 10/01/2024 20:05 ET Workstation ID: [id number] Transcribed By: Self Edit Transcribed Date: 10/01/2024 20:03 ET us Kendall Flores ATOMIC PHYSICS PROFESSOR IMG XR PROCEDURES Final Resu lt documented in this encounter Visit Diagnoses Diagnosis Acute pain of left knee documented in this encounter Additional Health Concerns Assessment Noted Time PHQ-9 Depression Total Score: 0 10/01/19 25 11:00 AM EST documented as of this encounter Care Teams Health Promotion Manager Relationship Specialty Start Date End Date Courtney Potts MD [address] [place] [address] PCP - General Internal Medicine 07/10/21 documented as of this encounter
--- OUTSIDE RECORDS SUMMARY | 2024-10-26 09:32 | XMS_ITS | Encounter Summary ---
Author Organization [facility] Address [address] [place] [address] Care Team Providers Care Web Press Operator Name Role Phone Courtney Potts MD Primary Care Provider [phone] Reason for Referral * Rehabilitation - Outpatient (Routine) - Authorized Specialty Diagnoses / Procedures Referred By Lorelei joe Referred To Contact Speech Pathology / Speech Therapy Diagnoses Choking, subsequent encounter Kendall Flores NP [address] [place] [address] Phone: tel: fax: Referral ID Status Reason Start Date Expiration Date Visits Requested Visits Authorized [id number] Authorized Specialty Services Required 10/01/2024 10/01/2025 35 35 * Consultation (Routine) - Authorized Specialty Diagnoses / Procedures Referred By Lorelei joe Referred To Contact Gastroenterology Diagnoses Choking, subsequent encounter Kendall Flores NP [address] [place], [place] Phone: tel: fax: Gastroenterology - [place] [address] [place] [address] Phone: tel: fax: Referral ID Status Reason Start Date Expiration Date Visits Requested Visits Authorized [id number] Authorized Specialty Services Required 10/01/2024 10/01/2025 1 1 * Imaging (Routine) - Pending Review Specialty Diagnoses / Procedures Referred By Lorelei joe Referred To Contact Radiology Diagnoses Choking, subsequent encounter Mixed hyperlipidemia Procedures US Head Neck Soft Tissue Kendall Flores NP [address] [place] [address] Phone: tel: fax: [address] Phone: tel: Referral ID Status Reason Start Date Expiration Date V isits Requested Visits Authorized [id number] Pending Review 10/01/2024 10/01/2025 1 1 Reason for Visit * Reason Comments Knee Pain Encounter Details Date Type Department Care Team (Late st Contact Info) Description 10/01/2024 10:00 AM EST Office Visit Adult Medicine [address] [phone] Kendall Flores NP [address] [place] [address] Acute pain of right knee (Primary Dx); [...] Screening Never done Kendall Flores NP ADULT [address] [address] Today's documentation was made using voice recognition software.This note may contain grammatical errors secondary to this software. documented in this encounter Plan of Treatment Upcoming Encounters Date Type Department Care Team (Late st Contact Info) Description 11/02/2024 8:30 AM EST Appointment [facility] Endoscopy [address] [place] [phone] Zuleyma Thapa MD 175 [facility] [place], [place] [phone] 12/27/2024 10:15 AM EDT Appointment [facility] [place] [address] Scheduled Referrals Name Type Priority [...] Signed Date: 10/03/2024 10:11 ET Workstation ID: [id number] Transcribed By: Self Edit Transcribed Date: 10/03/2024 [...] Signed Date: 10/03/2024 10:11 ET Workstation ID: [id number] Transcribed By: Self Edit Transcribed Date: 10/03/2024 10:07 ET us Kendall Flores NP IMG US PROCEDURES Final Resu lt * Prostate specific antigen screen (10/01/2024 11:39 AM EST) PSA 1.66 0.00 - 4.00 ng/mL LAB CHEMISTRY METHOD 10/01/2024 3:58 PM EST [facility] Blood Venous blood specimen / Unknown Venipuncture / Unknown 10/01/2024 11:39 AM EST 10/01/2024 11:39 AM EST Narrative [facility] - 10/01/2024 3:58 PM EST The Siemens Advia Centaur Chemiluminescent Immunoassay is used. Results obtained with different assay methods or kits cannot be used interchangeably. Results cannot be interpreted as absolute evidence of the presence or absence of malignant disease. Kendall Flores NP LAB BLOOD ORDERABLES Final R esult [facility] [address] [place] [address], [place] [phone] * (ABNORMAL) Comprehensive metabolic panel (10/01/2024 11:39 AM EST) [facility] Signature Sodium 139 133 - 145 mmol/L LAB CHEMISTRY METHOD 10/01/2024 3:57 PM [facility] Potassium 4.1 3.5 - 5.5 mmol/L LAB CHEMISTRY METHOD 10/01/2024 3:57 PM [facility] Chloride 105 96 - 110 mmol/L LAB CHEMISTRY METHOD 10/01/2024 3:57 PM [facility] CO2 31 21 - 32 mmol/L LAB CHEMISTRY METHOD 10/01/2024 3:57 PM [facility] Anion Gap 3 3 - 11 LAB CHEMISTRY METHOD 10/01/2024 3:57 PM [facility] Glucose 101(H) 70 - 100 mg/dL LAB CHEMISTRY METHOD 10/01/2024 3:57 PM [facility] BUN 14 5 - 25 mg/dL LAB CHEMISTRY METHOD 10/01/2024 3:57 PM [facility] Creatinine 0.92 0.70 - 1.30 mg/dL LAB CHEMISTRY METHOD 10/01/2024 3:57 PM [facility] eGFR 93 >=60 mL/min/1. 73m2 LAB CHEMISTRY METHOD 10/01/2024 3:57 PM [facility] Comment:Calculation based on the??Chronic Kidney Disease Epidemiology Collaboration (CKD-EPI) equation refit??without adjustment for race. BUN/Creatinine Ratio 15.2 LAB CHEMISTRY METHOD 10/01/2024 3:57 PM [facility] Calcium 9.5 8.5 - 10.5 mg/dL LAB CHEMISTRY METHOD 10/01/2024 3:57 PM [facility] AST (SGOT) 18 10 - 42 unit/L LAB CHEMISTRY METHOD 10/01/2024 3:57 PM [facility] ALT (SGPT) 20 10 - 60 unit/L LAB CHEMISTRY METHOD 10/01/2024 3:57 PM [facility] Alkaline Phosphatase 80 42 - 121 unit/L LAB CHEMISTRY METHOD 10/01/2024 3:57 PM [facility] Total Protein 7.4 6.0 - 8.0 g/dL LAB CHEMISTRY METHOD 10/01/2024 3:57 PM [facility] Albumin 3.9 3.2 - 5.0 g/dL LAB CHEMISTRY METHOD 10/01/2024 3:57 PM [facility] Total Bilirubin 0.7 0.0 - 1.4 mg/dL LAB CHEMISTRY METHOD 10/01/2024 3:57 PM [facility] Blood Venous blood specimen / Unknown Venipuncture / Unknown 10/01/2024 11:39 AM EST 10/01/2024 11:39 AM EST Kendall Flores CONSUMER INSIGHT ANALYST LAB BLOOD ORDERABLES Final R esult [facility] [address] [place] [address], * (ABNORMAL) Lipid panel with reflex to direct LDL (10/01/2024 11:39 AM EST) Cholesterol 225(H) 0 - 200 mg/dL LAB CHEMISTRY METHOD 10/01/2024 3:57 PM [facility] Triglycerides 262(H) 0 - 150 mg/dL LAB CHEMISTRY METHOD 10/01/2024 3:57 PM [facility] HDL 48 >=40 mg/dL LAB CHEMISTRY METHOD 10/01/2024 3:57 PM [facility] LDL Calculated 125(H) 0 - 100 mg/dL LAB CHEMISTRY METHOD 10/01/2024 3:57 PM [facility] VLDL Cholesterol Thad 52.4 mg/dL LAB CHEMISTRY METHOD 10/01/2024 3:57 PM [facility] Non HDL Chol. (LDL+VLDL) 177(H) <145 mg/dL LAB CHEMISTRY METHOD 10/01/2024 3:57 PM EST [facility] Chol/HDL Ratio 4.7(H) 0.0 - 4.4 LAB CHEMISTRY METHOD 10/01/2024 3:57 PM EST [facility] Blood Venous blood specimen / Unknown Venipuncture / Unknown 10/01/2024 11:39 AM EST 10/01/2024 11:39 AM EST us Kendall Flores CONSUMER INSIGHT ANALYST LAB BLOOD ORDERABLES Final R esult [facility] [address] [place] [address], [place] [phone] * XR Knee 4+ Views Right (10/01/2024 11:16 AM EST) Anatomical Region Laterality Modality Lower Extremities, Knee Right Radiogra phic Imaging 10/01/2024 8:03 PM EST Impressions 10/01/2024 8:05 PM EST Minimal degenerative changes at the patellofemoral joint. POS - [id number] -------- FINAL REPORT -------- Dictated By: Josee Rowland Dictated Date: 10/01/2024 20:03 ET Assigned Physician: Josee Rowland Reviewed and Electronically Signed By: Josee Rowland Signed Date: 10/01/2024 20:05 ET Workstation ID: [id number] Transcribed By: Self Edit Transcribed Date: 10/01/2024 [...] changes at the patellofemoral joint. POS - [id number] -------- FINAL REPORT -------- Dictated By: Josee Rowland Dictated Date: 10/01/2024 20:03 ET Assigned Physician: Josee Rowland Reviewed and Electronically Signed By: Josee Rowland Signed Date: 10/01/2024 20:05 ET Workstation ID: [id number] Transcribed By: Self Edit Transcribed Date: 10/01/2024 20:03 ET us Kendall Flores CONSUMER INSIGHT ANALYST IMG XR PROCEDURES Final Resu lt documented [...] documented as of this encounter Care Teams Web Press Operator Relationship Specialty Start Date End Date Courtney Potts MD [address] [place] [phone] PCP - General Internal Medicine 07/10/21 documented as of this encounter
--- OUTSIDE RECORDS SUMMARY | 2024-10-26 09:32 | XMS_ITS | Encounter Summary ---
Author Organization [facility] Address [address] [place] [address] Care Team Providers Care Automobile Insurance Claim Examiner Name Role Phone Courtney Potts MD Primary Care Provider [phone] Encounter Details Date Type Department Care Team (Late st Contact Info) Description 10/22/2024 Plan of Care Documentation [facility] Speech Therapy 175 [facility] [address] [place] [phone] Social History Tobacco Use Types Packs/Day Years [...] Description 11/02/2024 8:30 AM EST Appointment [facility] Endoscopy [address] [place] [phone] Zuleyma Thapa MD 175 [facility] 200 [place] [address] 12/27/2024 10:15 AM EDT Appointment [facility] Xray [address] [place] [phone] documented as of this encounter Goals Goal Patient Goal Type Associated Problems Recent Progress Patient-Stated? Author STEM SETTER LTG General No Smitha Matthews, STEM SETTER Note: Pt will consume least restrictive PO diet without changes to medical or respiratory status to maintain adequate oral nutrition hydration STEM SETTER STG General No Smitha Matthews, STEM SETTER Note: Pt will participate in MBS Pt [...] documented as of this encounter Care Teams Automobile Insurance Claim Examiner Relationship Specialty Start Date End Date Courtney Potts MD [address] [place] [address] PCP - General Internal Medicine 07/10/21 documented as of this encounter
--- OUTSIDE RECORDS SUMMARY | 2024-10-26 09:33 | XMS_ITS | Encounter Summary ---
Author Organization [facility] Address [address] [place] [address] Care Team Providers Care Shop Welder Name Role Phone Courtney Potts MD Primary Care Provider [phone] Reason for Visit * Reason Comments Dyspepsia Encounter Details Date Type Department Care Team (Latest Contact Info) Description 10/19/2024 9:00 AM EST Consult Gastroenterology - [address] [place] [address] Niya Baker NP 175 [facility] 200 [place] [address] Pharyngoesophageal dysphagia (Primary Dx); Heartburn Social History [...] heartburn. He takes omeprazole which he buys [id number] as needed. He denies nausea, vomiting, regurgitation, [...] He takes omeprazole as needed. Hepurchases omeprazole [id number]. Follow-up after EGD. Patient agrees with the above plan and understands the need to follow up as indicated. Please note, this note may have been created in part by using [employer] dictation software, and therefore, it may contain typographical and/or grammatical errors inherent in a voice recognition software program No orders of the defined types were placed in this encounter. None documented in this encounter Plan of Treatment Upcoming Encounters Date Type Department Care Team (Late st Contact Info) Description 11/02/2024 8:30 AM EST Appointment [facility] Endoscopy [address] [place] [address] Zuleyma Thapa MD [address] [address] 12/27/2024 10:15 AM EDT Appointment [facility] Xray [address] [place] [address] documented as of this encounter Visit Diagnoses [...] documented as of this encounter Care Teams Shop Welder Relationship Specialty Start Date End Date Courtney Potts MD [address] [place] [address] PCP - General Internal Medicine 07/10/21 documented as of this encounter
--- NOTE | 2024-10-26 09:36 | MHC.OFFVIS ---
Vital Signs 10/26/24 09:42 Height 5 ft 9 in Weight 187 lb BMI 27.6 Intake Visit Reasons: OV- L 2nd and 3rd metacarpal fx DOI 09/27/24 Intake Note: Steven is a 64 year old right hand dominant male who presents today for a follow up visit for his fracture of his left second and third metacarpal bone , DOI: 09/27/2024. At his last visit on 09/17/24 patient was provided with nilesh tape to wear on the middle and index fingers with daytime activities. Patient reports today he only did nilesh tapping for 2-3 days. Patient denies any pain. Patient visibly bending his left third finger without discomfort. Patient verbalizes soreness in the morning and when it is going to rain. Allergies No Known Allergies Allergy (Verified 10/05/24 13:46) HPI HPI OV- L 2nd and 3rd metacarpal fx DOI 09/27/24: Details: Steven is a 64 year old right hand dominant male who presents today for a follow up visit for his fracture of his left second and third metacarpal bone , DOI: 09/27/2024. At his last visit on 09/17/24 patient was provided with nilesh tape to wear on the middle and index fingers with daytime activities. Patient reports today he only did nilesh tapping for 2-3 days. Patient denies any pain. Patient visibly bending his left third finger without discomfort. Patient verbalizes soreness in the morning and when it is going to rain. Review of Systems Const All systems reviewed & are unremarkable except as noted in HPI and below Physical Exam Vital Signs: BMI result Body Mass Index 27.6 Extrem Other: Patient is alert, oriented, and in no acute distress. Neuro: Normal sensation of the tips of all digits of the left hand at this time Vascular: Cap refill brisk Pain: Patient reports no tenderness to palpation about the left hand, at the level of the fractures or the small wound site ROM: Patient is able to make a closed fist and extend all digits of the left hand fully and without difficulty Skin: There is a small wound, consistent with a puncture wound consistent with the incident described at his initial date of injury noted on the dorsal aspect of the left hand near the 2nd MCP joint. No erythema, edema, or evidence of infection noted. Wound closed, well-healing General: No ecchymosis, erythema, or evidence of infection. Psych: Appears grossly normal Affect normal Attitude cooperative Results Reviewed Results Reviewed: X-rays taken in the office today and independently reviewed by me demonstrate small, very minimally displaced avulsion fractures of the 2nd and 3rd metacarpal heads of the left hand, largely unchanged from previous x-rays. Assessment & Plan Assessment & Plan (1) Fracture of third metacarpal bone: Code(s): S62.308A - Unspecified fracture of other metacarpal bone, initial encounter for closed fracture Category: Medical (2) Fracture of second metacarpal bone: Code(s): S62.308A - Unspecified fracture of other metacarpal bone, initial encounter for closed fracture Category: Medical Plan 1. avulsion fracture of 2nd metacarpal of left hand 2. Avulsion fracture of the 3rd metacarpal of the left hand Date of injury 09/27/2024 Patient appears to be recovering well from his injury Patient is educated about the typical recovery course At this time, patient is cleared to return to work as tolerated If the patient begins to experience increasing pain or other worrisome symptoms, patient is advised that he should stop working and return to the office Patient is amenable to this plan Patient will f/u as needed with any acute concerns Orders: Orders XR hand LT min 3V Today M79.642 - Pain in left hand Coding Level of Care Code Est Pt Level 3 (65675) Global (71902) Diagnoses Fracture of third metacarpal bone S62.308A Fracture of second metacarpal bone S62.308A
[2024-10-26 09:42] VITALS: BMI 27.6
== END 2024-10-26 10:04 | disposition home or self-care (01) ==
DX: S62.308A Unspecified fracture of other metacarpal bone, initial encounter for closed fracture (principal)
CPT/HCPCS: 99213

== ENCOUNTER → 2024-10-26 09:27 | Outpatient (BNV) | payer OTHER, SELFPAY | PROVIDERS: Visit Provider Radiology Diagnostic Radiology | DX: M79.642 Pain in left hand (principal) | CPT/HCPCS: 73130 ==

== ENCOUNTER 2024-12-04 10:09 | Emergency (ER) | payer OTHER, SELFPAY ==
--- NOTE | ~2024-12-04 | XR_ITS ---
EXAMINATION: XR CHEST 2 VIEWS HISTORY: SOB COMPARISON: Comparison is made with the prior examination dated 12/08/2022. FINDINGS: PA and lateral views of the chest are submitted. The lungs are expanded and clear. There is no pleural effusion, pneumothorax, or pulmonary vascular congestion. The heart is normal in size. There is mild degenerative disc disease of the spine. XR/XR chest 2V IMPRESSION: No acute cardiopulmonary abnormality. Electronically signed by: Gennaro Bryan MD 12/04/2024 10:43 AM EDT
--- NOTE | 2024-12-04 10:09 | ECG_ITS ---
Test Reason : CHEST PAIN / SOB Blood Pressure : */* mmHG Vent. Rate : 96 BPM Atrial Rate : 96 BPM P-R Int : 156 ms QRS Dur : 72 ms QT Int : 342 ms P-R-T Axes : 33 13 24 degrees QTcB Int : 432 ms Normal sinus rhythm Normal ECG When compared with ECG of 08-Dec-2022 13:17, No significant change was found Referred By: Generic ED Physician Electronically Signed By: CHRISTOPH SEBASTIAN
[2024-12-04 10:18] VITALS: BP 140/77; PULSE 100; RESP 18; TEMP 37; O2SAT 96; BMI 28.5
[2024-12-04 10:30] LABS: MANUAL DIFF FLAG NO
[2024-12-04 10:33] LABS: Basophils Percent Auto 0.5 % (0-2); Eosinophils Absolute Auto 0.1 X10*3/uL (0.0-0.4); Eosinophils Percent Auto 2.8 % (0-4); Hematocrit 46.7 % (42.0-52.0); Hemoglobin 16.3 g/dl (14.0-18.0); Imm Gran Abs Auto 0.01 X10*3/uL (0.00-0.03); Imm Gran Pct Auto 0.2 % (0.0-0.4); Lymphocytes Absolute Auto 1.5 X10*3/uL (1.2-4.9); Lymphocytes Percent Auto 36.1 % (20-40); Mean Corpuscular HGB Conc 34.9 g/dl (31.0-36.0); Mean Corpuscular Hemoglobin 31.3 pg (27.0-33.0); Mean Corpuscular Volume 89.6 fL (80.0-98.0); Mean Platelet Volume 8.7 fL (9.4-12.4); Monocytes Absolute Auto 0.3 X10*3/uL (0.1-1.2); Monocytes Percent Auto 7.1 % (2-11); Neutrophils Absolute Auto 2.3 x10*3/uL (2.0-8.3); Neutrophils Percent Auto 53.3 % (45-73); Platelet Count 216 X10*3/uL (160-400); Red Blood Count 5.21 X10*6/uL (4.60-5.80); Red Cell Distribution Width 12.1 % (11.0-16.0); White Blood Count 4.2 X10*3/uL (4.8-10.8)
[2024-12-04 10:45] LABS: Anion Gap 9 (12-20); Blood Urea Nitrogen 17 mg/dL (9-16); Calcium 9.5 mg/dL (8.4-10.2); Carbon Dioxide 25 mmol/L (22-29); Chloride 112 mmol/L (96-108); Creatinine Clr Calc Pharmacy 97.4; Estimated Glomerular Filt Rate > 60; Glucose Random 130 mg/dL (60-115); Potassium 3.9 mmol/L (3.3-5.1); Sodium 142 mmol/L (135-145)
[2024-12-04 10:53] LABS: B Type Natriuretic Peptide 18 pg/mL (<100)
[2024-12-04 10:54] LABS: Troponin-I High Sensitivity < 2.7 ng/L (<3.5-35.0)
[2024-12-04 11:08] LABS: Influenza A PCR NEGATIVE (Negative); Influenza B PCR NEGATIVE (Negative); Resp Syncy Virus RNA Qual PCR NEGATIVE (Negative); SARS COV2 PCR INHOUSE NEGATIVE (Negative)
--- NOTE | 2024-12-04 14:13 | ED_ITS ---
HPI - SOB/Dyspnea General Chief Complaint: Dyspnea Stated Complaint: SOB Time Seen by Provider: 12/04/24 13:59 Source: patient and old records reviewed Mode of arrival: ambulatory Limitations: no limitations History of Present Illness ED Provider: BHAVESH CAMERON Narrative: 64 yo male with PMH of asthma and HLD here with c/o sawing wood yeserday no mask and felt very short of breath, no CP. He did not cough. He notes he has some throat issues and hx of wheezing post COVID a year ago but did not like the albuterol. He denies recent URI. He then went home and same thing at work very dyspneic around the dust. NO cough or fevers. He did recently travel to [place] 3 weeks ago. No leg swelling or pain. MD elicited complaint: shortness of breath Pertinent past history: other (reactive airway disease) Onset (ago): day(s) (1) Context: allergen exposure Timing: intermittent Severity: mild Exacerbating factors: other Relieving factors: nothing Associated symptoms: denies other symptoms Treatment prior to arrival: none Related Data Home Medications ?Medication ?Instructions ?Recorded ?Confirmed atorvastatin 40 mg tablet mg PO DAILY 10/05/24 Previous Rx's ?Medication ?Instructions ?Recorded cyclobenzaprine 10 mg tablet 10 mg PO TID PRN muscle spasm #10 07/23/20 tabs loratadine 10 mg tablet (Claritin) 10 mg PO DAILY PRN allergies #14 06/08/21 tabs albuterol sulfate 90 mcg/actuation 1 inh inhalation QID PRN shortness 12/08/22 aerosol inhaler (ProAir HFA) of breath or wheezing #8.5 grams amoxicillin 875 mg-potassium 1 tab PO BID 10 days #20 tabs 09/27/24 clavulanate 125 mg tablet Allergies Allergy/AdvReac Type Severity Reaction Status Date / Time No Known Allergies Allergy Verified 12/04/24 10:19 Review of Systems 2 Review of Systems: Constitutional : No Fever, No Chills ENT/Mouth : No Hoarseness, No sore throat, No Rhinorrhea Eyes: No Redness, No Discharge, No Vision Changes Cardiovascular : No Chest Pain, positive SOB, positive Dyspnea on Exertion, No Edema Respiratory : positive Cough, No Sputum, no Wheezing, Gastrointestinal : No Nausea, No Vomiting, No Diarrhea, No abdominal Pain Genitourinary : No Dysuria, No Hematuria Musculoskeletal : No joint pain, No Myalgias Skin : No rash Neuro : No Weakness, No Numbness, No Headache Psych : No anxiety, depression All other systems reviewed and are negative [facility] Past Medical History Attestation statement: The following information was validated with the patient. Source: old records reviewed Medical History Asthma Hyperlipidemia Social History Social History (Updated 12/04/24 @ 14:14 by Heavenly Levin DO) Patient Tobacco Use Status: Tobacco use Unknown Advance Directives: No Advance Directives Information Provided: Yes Physical Exam 2 Vital Signs: Vital Signs: Last Vital Signs Temp 97.5 F 12/04/24 14:29 Pulse 69 12/04/24 14:29 Resp 20 12/04/24 14:29 BP 153/90 H 12/04/24 14:29 Pulse Ox 99 12/04/24 14:29 O2 Del Method Room Air 12/04/24 14:29 BMI result Body Mass Index 28.5 Appearance: Alert. Oriented X3. No acute distress. Eyes: Pupils equal, round and reactive to light. ENT: Pharynx normal. Neck: Normal inspection. Neck supple. CVS: Normal heart rate and rhythm. Pulses normal. Respiratory: No respiratory distress. Breath sounds normal Abdomen: Soft and nontender. Skin: Skin warm and dry. Normal skin color. Normal skin turgor. Extremities: No lower extremity edema. No calf ttp Neuro: Oriented X 3. No motor deficit. No sensory deficit. CN2-12 intact Medical Decision Making Medical Decision Making [facility] Narrative: 64 yo male with PMH of asthma and HLD here with c/o dyspnea at work but no chest pain he is exposed to sawdust. At this time will obtain basic labs, EKG, trop x 1, CXR and ddimer given recent travel. I suspect more reactive airway disease. He has albuterol at home but no relief. Would refer to PCP. Differential Diagnosis Differential Diagnoses: The differential diagnosis associated with the presentation includes reactive airway disease, URI, VTE, no pain to suggest ACS Admission/Observation Consideration of admission/observation: Escalation of care including admission/observation considered work up negative stable for DC Lab Data [facility] Lab Attestation statement: I reviewed the patient's lab results. 12/04/24 10:25 12/04/24 10:24 Labs: Lab Results 12/04/24 12/04/24 12/04/24 Range/Units 10:24 10:25 14:34 WBC 4.2 L (4.8-10.8) X10*3/uL RBC 5.21 (4.60-5.80) X10*6/uL Hgb 16.3 (14.0-18.0) g/dl Hct 46.7 (42.0-52.0) % MCV 89.6 (80.0-98.0) fL MCH 31.3 (27.0-33.0) pg MCHC 34.9 (31.0-36.0) g/dl RDW 12.1 (11.0-16.0) % Plt Count 216 (160-400) X10*3/uL MPV 8.7 L (9.4-12.4) fL Immature Gran % (Auto) 0.2 (0.0-0.4) % Neut % (Auto) 53.3 (45-73) % Lymph % (Auto) 36.1 (20-40) % [place] % (Auto) 7.1 (2-11) % Eos % (Auto) 2.8 (0-4) % Baso % (Auto) 0.5 (0-2) % Lymph # (Auto) 1.5 (1.2-4.9) X10*3/uL [place] # (Auto) 0.3 (0.1-1.2) X10*3/uL Eos # (Auto) 0.1 (0.0-0.4) X10*3/uL Baso # (Auto) 0.0 (0.0-0.2) X10*3/uL Abs Immat Gran (auto) 0.01 (0.00-0.03) X10*3/uL Absolute Neuts (auto) 2.3 (2.0-8.3) x10*3/uL Absolute Nucleated RBC 0.000 (0.0-0.012) X10*3/uL Nucleated RBC % (auto) 0.0 (0.0-0.2) /100WBC D-Dimer High Sensitivty < 150 NG/ML Sodium 142 (135-145) mmol/L Potassium 3.9 (3.3-5.1) mmol/L Chloride 112 H (96-108) mmol/L Carbon Dioxide 25 (22-29) mmol/L Anion Gap 9 L (12-20) BUN 17 H (9-16) mg/dL Creatinine 0.85 (0.5-1.4) mg/dL Estim Creat Clear Calc 97.4 Estimated GFR > 60 Random Glucose 130 H (60-115) mg/dL Calcium 9.5 (8.4-10.2) mg/dL Troponin I High Sens < 2.7 (<3.5-35.0) ng/L B-Natriuretic Peptide 18 (<100) pg/mL Influenza Type A (PCR) NEGATIVE (Negative) Influenza Type B (PCR) NEGATIVE (Negative) RSV RNA Qual (PCR) NEGATIVE (Negative) SARS-CoV-2 RNA (RT-PCR) NEGATIVE (Negative) Independent Interpretation I performed an independent interpretation of an: EKG and Plain X-Ray (normal ) Interpretation: Rate: 96 Rhythm: NSR [place]: normal Normal P waves. Normal LUANNE. Normal QRS complex. ST T wave : inverted t wave III, no EDILBERTO qTC: 432 prior studies: no acute ischemia The study has been interpreted contemporaneously by me. . Radiology Impression Discussion of test interpretation with radiology: I have reviewed the radiologist's reading. External Record Review External record reviewed: Outpatient record Prescription Management I considered prescription management with: Other Discharge Plan Discharge Clinical Impression: Acute dyspnea Patient Disposition: Home, Self-Care Instructions: Dyspnea (ED) Additional Instructions: xray and EKG normal tests for heart and blood clot are normal at this time suspect related to exposure to sawdust please wear a mask and avoid exposure for the next few days if worsening symptoms or any other concerns please return follow up with your doctor as soon as possible Prescriptions: No Action cyclobenzaprine 10 mg tablet 10 mg PO TID PRN (Reason: muscle spasm) Qty: 10 0RF loratadine [Claritin] 10 mg tablet 10 mg PO DAILY PRN (Reason: allergies) Qty: 14 0RF albuterol sulfate [ProAir HFA] 90 mcg/actuation HFA aerosol inhaler 1 inh inhalation QID PRN (Reason: shortness of breath or wheezing) Qty: 8.5 0RF amoxicillin-pot clavulanate 875-125 mg tablet 1 tab PO BID 10 Days Qty: 20 0RF atorvastatin 40 mg tablet PO DAILY Print Language: Sinhala
[2024-12-04 14:29] VITALS: BP 153/90; PULSE 69; RESP 20; TEMP 36.4; O2SAT 99
[2024-12-04 15:06] LABS: D Dimer High Sensitivity < 150 NG/ML
[2024-12-04 15:43] VITALS: BP 153/90; PULSE 69; RESP 20; TEMP 36.4; O2SAT 99
--- OUTSIDE RECORDS SUMMARY | 2024-12-04 16:51 | XMS_ITS | Clinical Summary ---
Author Organization [facility] [address] [place] [address] [place] [phone] Phone Care Team Providers Care Welding Machine Operator Electro Gas Name Role Phone Courtney Potts MD Primary Care Provider [phone] Allergies No known active allergies Medications atorvastatin (LIPITOR) 40 mg tabletIndications: Mixed hyperlipidemia,Enc ounter for screening for cardiovascular disorders Take 1 tablet (40 mg total) by mouth 1 (one) time each day. 90 tablet 1 5 Active cholecalciferol (VITAMIN D-3) 25 mcg (1,000 unit) tabletIndications: Vitamin D deficiency Take 1 tablet (1,000 Units total) by mouth 1 (one) time each day. 90 tablet 1 5 Active lidocaine (LIDODERM) 5 % patchIndications:A cute pain of right knee Apply 1 patch topically 1 (one) time each day. Remove & discard patch within 12 hours or as directed by MD. 10 patch 5 Active amoxicillin-clavul anate (AUGMENTIN) 875-125 mg per tablet Take 1 tablet by mouth 2 (two) times a day. for 10 days 5 Active Active Problems Problem Noted Date Diagnosed Date [...] Encounters Date Type Department Care Team Description 11/02/2024 8:53 AM EST Anesthesia Event [facility] Endoscopy [address] [place] [phone] Tigre Phipps DO 11/02/2024 7:33 AM EST - 11/02/2024 11:59 PM EST Hospital Encounter [facility] Endoscopy [address] [place] [phone] Zuleyma Thapa MD Korobkov, Vitaliy, DO Weiss, Ashley, CRNA Pharyngoesophageal dysphagia Discharge Disposition: Home or Self Care 10/22/2024 8:45 AM EST Evaluation [facility] Speech Therapy [address] [phone] Smitha Matthews, FOOD AND NUTRITION SUPERVISOR Dysphagia, oropharyngeal (Primary Dx); Choking, subsequent encounter 10/22/2024 Plan of Care Documentation [facility] Speech Therapy [address] [phone] 10/22/[address] [phone] Kendall Flores, GRANT OTHER (Speech pathology referral) 10/19/2024 9:00 AM EST Consult [facility]ology - [place] [address] [place] [address] Niya Baker NP Pharyngoesophageal dysphagia (Primary Dx); Heartburn 10/19/2024 Telephone Gastroenterology - [place] [address] [place] [address] Niya Baker NP 10/02/2024 4:52 PM EST - 10/02/2024 11:59 PM EST Hospital Encounter Radiology Department - [address] [phone] Choking, subsequent encounter; Mixed hyperlipidemia Discharge Disposition: Home or Self Care 10/01/2024 11:00 AM EST - 10/01/2024 11:59 PM EST Hospital Encounter XRAY - [address] [phone] Acute pain of left knee Discharge Disposition: Home or Self Care 10/01/2024 10:00 AM EST Office Visit Adult [facility] [place] - [address] [phone] Kendall Flores NP Acute pain of right [...] pertussis (Boostrix; Adacel) 7yo and older 09/30/2016 Medical History Medical History Date Comments Hyperlipidemia Family history of colon cancer Family History Medical History Relation Name Comments [...] drink = 0.6 oz pur e alcohol) Interpersonal Safety Answer Date Record ed Physical Abuse 11/02/2024 Verbal Abuse 11/02/2024 Sex and Gender Information Value Date Recorded Sex Assigned at Male 11/02/2024 7:31 AM EST Legal Sex Male 10:48 PM EST Gender Identity Male 11/02/2024 7:31 AM EST Sexual Orientation Straight 11/02/2024 7: 31 AM EST Obstetrics History Last Filed Vital Signs Vital Sign Reading Time Taken Comments Blood Pressure 137/93 11/02/2024 9:28 AM EST Pulse 73 11/02/2024 9:28 AM EST Temperature 36.4 ??C (97.6 ??F) 11/02/2024 9:08 AM ES T Respiratory Rate 20 11/02/2024 9:28 AM EST Oxygen Saturation 100% 11/02/2024 9:28 AM EST Inhaled Oxygen Concentration - - Weight 86.2 kg (190 lb) 11/02/2024 8:23 AM EST Height 175.3 cm (5' 9 ) 11/02/2024 8:23 AM EST Body Mass Index 28.06 11/02/2024 8:23 AM EST Plan of Treatment Upcoming Encounters Date Type Department Care Team (Late st Contact Info) Description 12/27/2024 10:15 AM EDT Appointment [facility] Xray [address] [place] [phone] Health Maintenance Due Date Last Done Comments [...] Type Associated Problems Recent Progress Patient-Stated? Author FOOD AND NUTRITION SUPERVISOR [facility] General No Smitha Matthews, FOOD AND NUTRITION SUPERVISOR Note: Pt will consume least restrictive PO diet without changes to medical or respiratory status to maintain adequate oral nutrition hydration FOOD AND NUTRITION SUPERVISOR STG General No Smitha Matthews, FOOD AND NUTRITION SUPERVISOR Note: Pt will participate in MBS Pt will participate with development of personalized HEP to perform 4-5xs/wk with min assist for modifications Pt will consume recommended diet textures and utilize swallow strategies independently Procedures Procedure Name Priority Date/Time Associated Diagnosis Comments EGD Routine 11/02/2024 9:07 AM EST Pharyngoesophageal dysphagia US HEAD NECK SOFT TISSUE Routine 10/02/2024 [...] knee from Last 3 Months Results * EGD Anesthesia - MAC; [facility] ENDOSCOPY (11/02/2024 9:07 AM EST) Anatomical Region Laterality Modality Endoscopy 11/02/2024 8:54 AM EST Impressions 11/02/2024 9:07 AM EST - Normal examined duodenum. ? - Small hiatal hernia. ? - LA Grade B reflux esophagitis with no bleeding. ? - Benign-appearing esophageal stenosis. Dilated. ? - No specimens collected. Recommendation: ?- Discharge patient to home. ? - Follow an antireflux regimen. ? - Use a proton pump inhibitor PO daily indefinitely. Narrative 11/02/2024 9:07 AM EST [facility] GI Patient Name: Steven Farah Procedure Date: 11/02/2024 8:54 AM Date of : 1960 Age: 64 Gender: Male Note Status: Finalized Attending MD: Zuleyma Thapa MD, Procedure Date No Time: 11/02/2024 Procedure: ? Upper GI endoscopy Indications: ? Dysphagia Providers: ? Zuleyma Thapa MD Referring MD: ?Zuleyma Thapa MD Medicines: ? Monitored Anesthesia Care Complications: ? No immediate complications. Estimated blood loss: ? Minimal. Estimated Blood Loss: ? Estimated blood loss was minimal. Procedure: ? Pre-Anesthesia Assessment: ? - Prior to the procedure, a History and Physical was ? performed, and patient medications and allergies were ? reviewed. The patient is competent. The risks and ? benefits of the procedure and the sedation options and ? risks were discussed with the patient. All questions ? were answered and informed consent was obtained. ? Patient identification and proposed procedure were ? verified by the physician, the nurse, the gas plant repairer ? and the medical supply technician in the pre-procedure area in the ? endoscopy suite. Mental Status Examination: alert and ? oriented. Airway Examination: normal oropharyngeal ? airway and neck mobility. Respiratory Examination: ? clear to auscultation. CV Examination: normal. ? Prophylactic Antibiotics: The patient does not require ? prophylactic antibiotics. Prior Anticoagulants: The ? patient has taken no anticoagulant or antiplatelet ? agents. ASA Grade Assessment: III - A patient with ? severe systemic disease. After reviewing the risks and ? benefits, the patient was deemed in satisfactory ? condition to undergo the procedure. The anesthesia ? plan was to use monitored anesthesia care (MAC). ? Immediately prior to administration of medications, ? the patient was re-assessed for adequacy to receive ? sedatives. The heart rate, respiratory rate, oxygen ? saturations, blood pressure, adequacy of pulmonary ? ventilation, and response to care were monitored ? throughout the procedure. The physical status of the ? patient was re-assessed after the procedure. ? After obtaining informed consent, the endoscope was ? passed under direct vision. Throughout the procedure, ? the patient's blood pressure, pulse, and oxygen ? saturations were monitored continuously. The Olympus ? Gastroscope was introduced through the mouth, and ? advanced to the second part of duodenum. The upper GI ? endoscopy was accomplished without difficulty. The ? patient tolerated the procedure well. Findings: ?The examined duodenum was normal. ? A small hiatal hernia was present. ? No other significant abnormalities were identified in ? a careful examination of the stomach. ? LA Grade B (one or more mucosal breaks greater than 5 ? mm, not extending between the tops of two mucosal ? folds) esophagitis with no bleeding was found in the ? lower third of the esophagus. ? One benign-appearing, intrinsic mild ? (non-circumferential scarring) stenosis was found in ? the lower third of the esophagus. This stenosis ? measured less than one cm (in length). The stenosis ? was traversed. A guidewire was placed and the scope ? was withdrawn. Dilation was performed with a Savary ? dilator with mild resistance at 57 Fr. Procedure Code(s): ? --- Professional --- ? [facility], Esophagogastroduodenoscopy, flexible, ? transoral; with insertion of guide wire followed by ? passage of dilator(s) through esophagus over guide wire Diagnosis Code(s): ? --- Professional --- ? K22.2, Esophageal obstruction ? K21.00, Gastro-esophageal reflux disease with ? esophagitis, without bleeding ? R13.10, Dysphagia, unspecified CPT copyright 2020 [employer]. All rights reserved. The codes documented in this report are preliminary and upon stand up forklift operator review may be revised to meet current compliance requirements. Zuleyma Thapa MD 11/02/2024 9:07:35 AM This report has been signed electronically.Zuleyma Thapa MD Number of Addenda: 0 Note Initiated On: 11/02/2024 8:54 AM Scope In: Scope Out: ? Endoscopy Department at [facility] - [address] [place] [address], ? [place] [phone] Procedure Note Zuleyma Thapa MD - 11/02/2024 [facility] GI Patient Name: Steven Farah Procedure Date: 11/02/2024 8:54 AM Date of : 1960 Age: 64 Gender: Male Note Status: Finalized Attending MD: Zuleyma Thapa MD, Procedure Date No Time: 11/02/2024 Procedure: Upper GI endoscopy Indications: Dysphagia Providers: Zuleyma Thapa MD Referring MD: Zuleyma Thapa MD Medicines: Monitored Anesthesia Care Complications: No immediate complications. Estimated blood loss: Minimal. Estimated Blood Loss: Estimated blood loss was minimal. Procedure: Pre-Anesthesia Assessment: - Prior to the procedure, a History and Physicalwas performed, and patient medications and allergieswere reviewed. The patient is competent. The risks and benefits of the procedure and the sedation optionsand risks were discussed with the patient. Allquestions were answered and informed consent was obtained. Patient identification and proposed procedure were verified by the physician, the nurse, theanesthetist and the medical supply technician in the pre-procedure area in the endoscopy suite. Mental Status Examination: alertand oriented. Airway Examination: normal oropharyngeal airway and neck mobility. Respiratory Examination: clear to auscultation. CV Examination: normal. Prophylactic Antibiotics: The patient does notrequire prophylactic antibiotics. Prior Anticoagulants: The patient has taken no anticoagulant or antiplatelet agents. ASA Grade Assessment: III - A patient with severe systemic disease. After reviewing the risksand benefits, the patient was deemed in satisfactory condition to undergo the procedure. The anesthesia plan was to use monitored anesthesia care (MAC). Immediately prior to administration of medications, the patient was re-assessed for adequacy to receive sedatives. The heart rate, respiratory rate, oxygen saturations, blood pressure, adequacy of pulmonary ventilation, and response to care were monitored throughout the procedure. The physical status ofthe patient was re-assessed after the procedure. After obtaining informed consent, the endoscope was passed under direct vision. Throughout theprocedure, the patient's blood pressure, pulse, and oxygen saturations were monitored continuously. TheOlympus Gastroscope was introduced through the mouth, and advanced to the second part of duodenum. The upperGI endoscopy was accomplished without difficulty. The patient tolerated the procedure well. Findings: The examined duodenum was normal. A small hiatal hernia was present. No other significant abnormalities were identifiedin a careful examination of the stomach. LA Grade B (one or more mucosal breaks greater than5 mm, not extending between the tops of two mucosal folds) esophagitis with no bleeding was found inthe lower third of the esophagus. One benign-appearing, intrinsic mild (non-circumferential scarring) stenosis was foundin the lower third of the esophagus. This stenosis measured less than one cm (in length). The stenosis was traversed. A guidewire was placed and the scope was withdrawn. Dilation was performed with a Savary dilator with mild resistance at 57 Fr. Procedure Code(s): --- Professional --- 20288, Esophagogastroduodenoscopy, flexible, transoral; with insertion of guide wire followed by passage of dilator(s) through esophagus over guidewire Diagnosis Code(s): --- Professional --- K22.2, Esophageal obstruction K21.00, Gastro-esophageal reflux disease with esophagitis, without bleeding R13.10, Dysphagia, unspecified CPT copyright 2020 [employer]. All rights reserved. The codes documented in this report are preliminary and upon stand up forklift operator reviewmay be revised to meet current compliance requirements. Zuleyma Thapa MD 11/02/2024 9:07:35 AM This report has been signed electronically.Zuleyma Thapa MD Number of Addenda: 0 Note Initiated On: 11/02/2024 8:54 AM Scope In: Scope Out: Endoscopy Department at [facility] - [address] [place] [phone] IMPRESSION: - Normal examined duodenum. - Small hiatal hernia. - LA Grade B reflux esophagitis with no bleeding. - Benign-appearing esophageal stenosis. Dilated. - No specimens collected. Recommendation: - Discharge patient to home. - Follow an antireflux regimen. - Use a proton pump inhibitor PO dailyindefinitely. us Zuleyma Thapa MD GI~PROCEDURE ORDERABLES Fin al Result * US Head Neck Soft Tissue (10/02/2024 [...] Signed Date: 10/03/2024 10:11 ET Workstation ID: [id number] Transcribed By: Self Edit Transcribed Date: 10/03/2024 [...] Signed Date: 10/03/2024 10:11 ET Workstation ID: [id number] Transcribed By: Self Edit Transcribed Date: 10/03/2024 10:07 ET Kendall Flores NP IMG US PROCEDURES Final Resu lt * Prostate specific antigen screen (10/01/2024 11:39 AM EST) PSA 1.66 0.00 - 4.00 ng/mL LAB CHEMISTRY METHOD 10/01/2024 3:58 PM EST [facility] Blood Venous blood specimen / Unknown Venipuncture / Unknown 10/01/2024 11:39 AM EST 10/01/2024 11:39 AM EST Narrative [facility] - 10/01/2024 3:58 PM EST The Siemens Advia Centaur Chemiluminescent Immunoassay is used. Results obtained with different assay methods or kits cannot be used interchangeably. Results cannot be interpreted as absolute evidence of the presence or absence of malignant disease. Kendall Flores NP LAB BLOOD ORDERABLES Final R esult [facility] [address] [place] [address], [place] [phone] * (ABNORMAL) Lipid panel with reflex to direct LDL (10/01/2024 11:39 AM EST) Cholesterol 225(H) 0 - 200 mg/dL LAB CHEMISTRY METHOD 10/01/2024 3:57 PM EST [facility] Triglycerides 262(H) 0 - 150 mg/dL LAB CHEMISTRY METHOD 10/01/2024 3:57 PM EST [facility] HDL 48 >=40 mg/dL LAB CHEMISTRY METHOD 10/01/2024 3:57 PM EST [facility] LDL Calculated 125(H) 0 - 100 mg/dL LAB CHEMISTRY METHOD 10/01/2024 3:57 PM [facility] VLDL Cholesterol Thad 52.4 mg/dL LAB CHEMISTRY METHOD 10/01/2024 3:57 PM EST [facility] Non HDL Chol. (LDL+VLDL) 177(H) <145 mg/dL LAB CHEMISTRY METHOD 10/01/2024 3:57 PM EST [facility] Chol/HDL Ratio 4.7(H) 0.0 - 4.4 LAB CHEMISTRY METHOD 10/01/2024 3:57 PM EST [facility] Blood Venous blood specimen / Unknown Venipuncture / Unknown 10/01/2024 11:39 AM EST 10/01/2024 11:39 AM EST us Kendall Flores SALES SERVICE ASSISTANT LAB BLOOD ORDERABLES Final R esult [facility] [address] [place] [address], [place] [phone] * (ABNORMAL) Comprehensive metabolic panel (10/01/2024 11:39 AM EST) Pathologist [facility] Sodium 139 133 - 145 mmol/L LAB [...] LAB CHEMISTRY METHOD 10/01/2024 3:57 PM EST [facility] Albumin 3.9 3.2 - 5.0 g/dL LAB CHEMISTRY METHOD 10/01/2024 3:57 PM EST [facility] Total Bilirubin 0.7 0.0 - 1.4 mg/dL LAB CHEMISTRY METHOD 10/01/2024 3:57 PM EST [facility] Blood Venous blood specimen / Unknown Venipuncture / Unknown 10/01/2024 11:39 AM EST 10/01/2024 11:39 AM EST us Kendall Flores NP LAB BLOOD ORDERABLES Final R esult [facility] [address] [place] [address], * XR Knee 4+ Views Right (10/01/2024 11:16 AM EST) Anatomical Region Laterality Modality Lower Extremities, Knee Right Radiogra phic Imaging 10/01/2024 8:03 PM EST Impressions 10/01/2024 8:05 PM EST Minimal degenerative changes at the patellofemoral joint. POS - [id number] -------- FINAL REPORT -------- Dictated By: Josee Rowland Dictated Date: 10/01/2024 20:03 ET Assigned Physician: Josee Rowland Reviewed and Electronically Signed By: Josee Rowland Signed Date: 10/01/2024 20:05 ET Workstation ID: [id number] Transcribed By: Self Edit Transcribed Date: 10/01/2024 [...] changes at the patellofemoral joint. POS - [id number] -------- FINAL REPORT -------- Dictated By: Josee Rowland Dictated Date: 10/01/2024 20:03 ET Assigned Physician: Josee Rowland Reviewed and Electronically Signed By: Josee Rowland Signed Date: 10/01/2024 20:05 ET Workstation ID: [id number] Transcribed By: Self Edit Transcribed Date: 10/01/2024 20:03 ET Kendall Flores SALES SERVICE ASSISTANT IMG XR PROCEDURES Final Resu lt from Last 3 Months Insurance [employer] Care Teams Welding Machine Operator Electro Gas Relationship Specialty Start Date End Date Courtney Potts MD [address] [place] [address] PCP - General Internal Medicine 07/10/21
== END 2024-12-04 16:15 | disposition home or self-care (01) ==
PROVIDERS: Emergency Provider Emergency Medicine; PCP Internal Medicine
DX: R06.00 Dyspnea, unspecified (principal); J45.909 Unspecified asthma, uncomplicated; E78.5 Hyperlipidemia, unspecified; Z03.818 Encounter for observation for suspected exposure to other biological agents ruled out; Z79.02 Long term (current) use of antithrombotics/antiplatelets; Z79.899 Other long term (current) drug therapy
CPT/HCPCS: 0241U; 36415; 71046; 80048; 83880; 84484; 85025; 85379; 93005; 99283; 99284

== ENCOUNTER → 2024-12-04 10:09 | Outpatient (BNV) | payer OTHER, SELFPAY | PROVIDERS: Emergency Provider Emergency Medicine; PCP Internal Medicine; Visit Provider Internal Medicine | DX: R07.9 Chest pain, unspecified (principal); R06.02 Shortness of breath | CPT/HCPCS: 93010 ==

== ENCOUNTER → 2024-12-04 10:14 | Outpatient (BNV) | payer OTHER, SELFPAY | PROVIDERS: PCP Internal Medicine; Visit Provider Radiology Diagnostic Radiology | DX: R06.02 Shortness of breath (principal) | CPT/HCPCS: 71046 ==

== ENCOUNTER 2025-06-01 11:09 | Emergency (ER) | payer OTHER, SELFPAY ==
--- OUTSIDE RECORDS SUMMARY | 2025-05-27 14:15 | XMS_ITS | Encounter Summary ---
[facility] Address [address] [place] [address] Care Team Providers Care Local Tanker Truck Driver Name Role Phone Courtney Potts MD Primary Care Provider [phone] Reason for Referral * Consultation (Routine) - Authorized Specialty Diagnoses / Procedures Referred By Lorelei joe Referred To Contact Physical Therapy Diagnoses Hyperlipidemia, unspecified hyperlipidemia type Left shoulder pain, unspecified chronicity Elevated blood pressure reading Kendall Flores NP [address] [place] [address] Phone: tel: fax: Referral ID Status Reason Start Date Expiration Date Visits Requested Visits Authorized [id number] Authorized Specialty Services Required 05/27/2025 05/27/2026 21 1 Reason for Visit * Reason Comments Follow-up Patient here for med review labs from March Encounter Details Date Type Department Care Team (Late st Contact Info) Description 05/27/2025 2:15 PM EDT Office Visit Adult Medicine [address] [phone] Kendall Flores NP [address] [place], [place] Elevated blood pressure reading (Primary Dx); Left shoulder pain, unspecified chronicity; Hyperlipidemia, unspecified hyperlipidemia type; Decreased libido Social History Tobacco Use Types Packs/Day Years [...] Orientation Straight 11/02/2024 7: 31 AM EST documented as of this encounter Last Filed Vital Signs Vital Sign Reading Time Taken Comments Blood Pressure 144/88 05/27/2025 2:26 PM EDT provider will re check Pulse 62 05/27/2025 2:26 PM EDT Temperature 36.1 C (97 F) 05/27/2025 2:26 PM EDT Respiratory Rate - - Oxygen Saturation 99% 05/27/2025 2:2 6 PM EDT Inhaled Oxygen Concentration - - Weight 87.1 kg (192 lb) 05/27/2025 2:26 PM EDT Height 175.3 cm (5' 9 ) 05/27/2025 2:26 PM EDT Body Mass Index 28.35 05/27/2025 2:26 PM EDT documented in this encounter Ordered Prescriptions Prescription Sig Dispense Quantity Refills Last Filled Start Date End Date amLODIPine (NORVASC) 2.5 mg tablet Take 1 tablet (2.5 mg total) by mouth 1 (one) time each day. 30 each 05/27/2025 05/27/2026 documented in this encounter Progress Notes * Kendall Flores NP - 05/27/2025 2:15 PM EDT Images from the original note were not included. Patient Education High Blood Pressure: Care Instructions Overview It's normal for blood pressure to go up and down throughout the day. But if it stays up, you have high blood pressure. Another name for high blood pressure is hypertension. For diagnosis, the top number may be 130 to 140 or higher. The bottom number may be 80 to 90 or higher. Despite what a lot of people think, high blood pressure usually doesn't cause headaches or make youfeel dizzy or lightheaded. It usually has no symptoms. But it does increase your risk of stroke, heart attack, and other problems. You and your doctor will talk about your risks of these problems based on your blood pressure. Your doctor will give you a goal for your blood pressure. Your goal will be based on your health and your age. Lifestyle changes, such as eating healthy and being active, are always important to help lower blood pressure. You might also take medicine to reach your blood pressure goal. Follow-up care is a lang part of your treatment and safety. Be sure to make and go to all appointments, and call your doctor if you are having problems. It's also a good idea to know your test resultsand keep a list of the medicines you take. How can you care for yourself at home? Medical treatment If you stop taking your medicine, your blood pressure will go back up. You may take one or more types of medicine to lower your blood pressure. Be safe with medicines. Take your medicine exactly as prescribed. Call your doctor if you think you are having a problem with your medicine. See your doctor regularly. You may need to see the doctor more often at first or until your blood pressure comes down. If you are taking blood pressure medicine, talk to your doctor before you take decongestants or anti-inflammatory medicine, such as ibuprofen. Some of these medicines can raise blood pressure. Learn how to check your blood pressure at home. Talk to your doctor before you start taking aspirin every day. Aspirin can help certain people lower their risk of a heart attack or stroke. But taking aspirin isn't right for everyone, because it can cause serious bleeding. Lifestyle changes Stay at a weight that's healthy for you. This is especially important if you put on weight around the waist. Losing even 10 pounds can help you lower your blood pressure. If your doctor recommends it, get more exercise. Walking is a good choice. Bit by bit, increase theamount you walk every day. Try for at least 30 minutes on most days of the week. Avoid or limit alcohol. Talk to your doctor about whether you can drink any alcohol. Try to limit how much sodium you eat to less than 2,300 milligrams (mg) a day. Your doctor may ask you to try to eat less than 1,500 mg a day. Eat plenty of fruits (such as bananas and oranges), vegetables, legumes, whole grains, and low-fat dairy products. Lower the amount of saturated fat in your diet. Saturated fat is found in animal products such as milk, cheese, and meat. Limiting these foods may help you lose weight and also lower your risk for heart disease. Do not smoke or vape. Smoking or vaping increases your risk for heart attack and stroke. If you need help quitting, talk to your doctor about quit programs and medicines. These can increase your chances of quitting for good. When should you call for help? Call 911 anytime you think you may need emergency care. This may mean having symptoms that suggest your blood pressure is causing a serious heart or blood vessel problem. Your blood pressure may be 180/120 or higher. For example, call 911 if: You have symptoms of a heart attack. These may include: Chest pain or pressure, or a strange feeling in the chest. Sweating. Shortness of breath. Nausea or vomiting. Pain, pressure, or a strange feeling in the back, neck, jaw, or upper belly or in one or both shoulders or arms. Lightheadedness or sudden weakness. A fast or irregular heartbeat. NOTE: After calling 911, the loom operator apprentice may tell you to chew 1 adult-strength or 2 to 4 low-dose aspirin. Wait for an ambulance. Do not try to drive yourself. You have symptoms of a stroke. These may include: Sudden numbness, tingling, weakness, or loss of movement in your face, arm, or leg, especially on only one side of your body. Sudden vision changes. Sudden trouble speaking. Sudden confusion or trouble understanding simple statements. Sudden problems with walking or balance. A sudden, severe headache that is different from past headaches. You have severe back or belly pain. Do not wait until your blood pressure comes down on its own. Get help right away. Call your doctor now or seek immediate care if: Your blood pressure is much higher than normal (such as 180/120 or higher), but you don't have symptoms. You think high blood pressure is causing symptoms, such as: Severe headache. Blurry vision. Watch closely for changes in your health, and be sure to contact your doctor if: Your blood pressure measures higher than your doctor recommends at least 2 times. That means the top number is higher or the bottom number is higher, or both. You think you may be having side effects from your blood pressure medicine. Where can you learn more? Scan the fsboWOW or Go to https://www.[employer].net/michaelkadeem Enter X567 in the search box to learn more about High Blood Pressure: Care Instructions. Current as of: April 04, 2024 Content Version: 14.5 ?? [email or web address]. Care instructions adapted under license by your healthcare professional. If you have questions about a medical condition or this instruction, always ask your healthcare professional. [email or web address], disclaims any warranty or liability for your use of this information. Patient Education DASH Diet: Care Instructions Your Care Instructions The DASH diet is an eating plan that can help lower your blood pressure. DASH stands for Dietary Approaches to Stop Hypertension. Hypertension is high blood pressure. The DASH diet focuses on eating foods that are high in calcium, potassium, and magnesium. These nutrients can lower blood pressure. The foods that are highest in these nutrients are fruits, vegetables, low-fat dairy products, nuts, seeds, and legumes. But taking calcium, potassium, and magnesium supplements instead of eating foods that are high in those nutrients does not have the same effect. The DASH diet also includes whole grains, fish, and poultry. The DASH diet is one of several lifestyle changes your doctor may recommend to lower your high blood pressure. Your doctor may also want you to decrease the amount of sodium in your diet. Lowering sodium while following the DASH diet can lower blood pressure even further than just the DASH diet alone. Follow-up care is a lang part of your treatment and safety. Be sure to make and go to all appointments, and call your doctor if you are having problems. It's also a good idea to know your test resultsand keep a list of the medicines you take. How can you care for yourself at home? Following the DASH diet Eat 4 to 5 servings of fruit each day. A serving is 1 medium-sized piece of fruit, 1/2 cup raw or canned fruit, 1/4 cup dried fruit, or 4 ounces (1/2 cup) of fruit juice. Choose fruit more often thanfruit juice. Eat 4 to 5 servings of vegetables each day. A serving is 1 cup of lettuce or raw leafy vegetables, 1/2 cup of chopped or cooked vegetables, or 4 ounces (1/2 cup) of vegetable juice. Choose vegetablesmore often than vegetable juice. Get 2 to 3 servings of low-fat and fat-free dairy each day. A serving is 8 ounces of milk, 1 cup ofyogurt, or 1?? ounces of cheese. Eat 6 to 8 servings of grains each day. A serving is 1 slice of bread, 1 ounce of dry cereal, or 1/2 cup of cooked rice, pasta, or cooked cereal. Try to choose whole-grain products as much as possible. Limit lean meat, poultry, and fish to 6 ounces or less each day. One egg counts as 1 ounce. Eat 4 to 5 servings of nuts, seeds, and legumes (cooked dried beans, lentils, and split peas) each week. A serving is 1/3 cup of nuts, 2 tablespoons of seeds, 2 tablespoons of peanut butter, or 1/2 cup of cooked beans or peas. Limit fats and oils to 2 to 3 servings each day. A serving is 1 teaspoon of vegetable oil or 2 tablespoons of salad dressing. Limit sweets and added sugars to 5 servings or less a week. A serving is 1 tablespoon jelly or jam,1/2 cup sorbet, or 1 cup of lemonade. Eat less than 2,300 milligrams (mg) of sodium a day. If you limit your sodium to 1,500 mg a day, you can lower your blood pressure even more. Be aware that all of these are the suggested number of servings for people who eat 1,800 to 2,000 calories a day. Your recommended number of servings may be different if you need more or fewer calories. Tips for success Start small. Make small changes, and stick with them. Once those changes become habit, add a few more changes. Try some of the following: Make it a goal to eat a fruit or vegetable at every meal and at snacks. This will make it easy to get the recommended amount of fruits and vegetables each day. Try yogurt topped with fruit and nuts for a snack or healthy dessert. Add lettuce, tomato, cucumber, and onion to sandwiches. Have a variety of cut-up vegetables with a low-fat dip as an appetizer instead of chips and dip. Sprinkle sunflower seeds or chopped almonds over salads. Or try adding chopped walnuts or almonds to cooked vegetables. Try some vegetarian meals using beans and peas. Add garbanzo or kidney beans to salads. Make burritos and tacos with mashed edwards beans or black beans. Where can you learn more? Scan the QR code or Go to https://www.[employer].net/michaelkadeem Enter H967 in the search box to learn more about DASH Diet: Care Instructions. Current as of: June 11, 2024 Content Version: 14.5 ?? [id number] [email or web address]. Care instructions adapted under license by your healthcare professional. If you have questions about a medical condition or this instruction, always ask your healthcare professional. [email or web address], disclaims any warranty or liability for your use of this information. * Kendall Flores NP - 05/27/2025 2:15 PM EDT PATIENT'S PCP: Courtney Potts MD LAST VISIT IN THIS DEPARTMENT: 03/26/2025 I have obtained verbal consent from Steven Farah prior to the recording. I have advised Steven Farah that he may refuse the recording and require the recording to be turned off at any time during this encounter. Steven Farah is a 65 y.o. (: 1960) male who presents today for: Chief Complaint Patient presents with Follow-up Patient here for med review labs from March SUBJECTIVE History of Present Illness The patient is a 65-year-old male who presents for evaluation of elevated blood pressure, left shoulder pain, and decreased libido. He reports an increase in his blood pressure, which he has been monitoring since his last visit. Blood pressure in office today was elevated. He is not currently on any medication for this condition and is actively trying to lose weight as a means to manage it. He mentions that he is unable to tie his shoes due to his weight and is making efforts to lose weight. His daily routine involves strenuou s work, after which he prefers to relax at home. He also reports experiencing pain in his left shoulder, which he describes as severe and intermittent. The pain extends throughout his entire arm and persists even when he moves it. He has not soughtphysical therapy for this issue. He takes ibuprofen only when the pain is severe, typically 4 tablets at work, but not on a daily basis. He has decreased libido. He is considering the use of Viagra but is concerned about potential side effects, particularly an increase in blood pressure. He is due for a pneumonia vaccine but declines it today. He had an influenza vaccine either last year or the year before that and experienced some discomfort in his arm. Review Of System Review of Systems Constitutional: Negative. Respiratory: Negative. Cardiovascular: Negative. Gastrointestinal: Negative. Endocrine: Negative. Genitourinary: Negative. Musculoskeletal: Negative. Shoulder pain Skin: Negative. Neurological: Negative. Hematological: Negative. The following portions of the patient's chart were reviewed in this encounter and updated as appropriate: OBJECTIVE Vitals: 05/27/25 1426 BP: (!) 144/88 Pulse: 62 Temp: 36.1 ??C (97 ??F) TempSrc: Temporal SpO2: 99% Weight: 87.1 kg (192 lb) Height: 1.753 m (69 ) BP Readings from Last 5 Encounters: 05/27/25 (!) 144/88 03/26/25 (!) 148/88 11/02/24 (!) 137/93 10/01/24 110/74 03/21/24 114/70 Body mass index is 28.35 kg/m??. BMI is greater than 25.0 (above the normal range) - see Plan No Known Allergies Active Medication: Current Outpatient Medications Medication Instructions amLODIPine (NORVASC) 2.5 mg, oral, Daily atorvastatin (LIPITOR) 40 mg, oral, Daily cholecalciferol (VITAMIN D-3) 25 mcg (1,000 unit) tablet TAKE 1 TABLET (1,000 UNITS TOTAL) BY MOUTHDAILY Physical Exam Vitals reviewed. Constitutional: Appearance: Normal appearance. Cardiovascular: Rate and Rhythm: Normal rate and regular rhythm. Pulses: Normal pulses. Heart sounds: Normal heart sounds. Pulmonary: Effort: Pulmonary effort is normal. Breath sounds: Normal breath sounds. Abdominal: General: Bowel sounds are normal. Palpations: Abdomen is soft. Musculoskeletal: General: Normal range of motion. Cervical back: Normal range of motion and neck supple. Skin: General: Skin is warm and dry. Neurological: General: No focal deficit present. Mental Status: He is alert. Mental status is at baseline. Imaging No Pertinent Imaging Laboratory: CBC: No results found for: WBC , HGB , HCT , MCV , PLT CMP: Lab Results Component Value Date NA 139 10/01/2024 K 4.1 10/01/2024 CL 105 10/01/2024 CO2 31 10/01/2024 GLUCOSE 101 (H) 10/01/2024 BUN 14 10/01/2024 CREATININE 0.92 10/01/2024 CALCIUM 9.5 10/01/2024 PROT 7.4 10/01/2024 ALBUMIN 4.3 03/29/2025 BILITOT 0.7 10/01/2024 AST 18 10/01/2024 ALT 20 10/01/2024 ALKPHOS 80 10/01/2024 EGFR 93 10/01/2024 A1c/Microalbuminuria/LDL/GFR: No results found for: HGBA1C Lab Results Component Value Date LDLCALC 125 (H) 10/01/2024 CREATININE 0.92 10/01/2024 Lipids: Lab Results Component Value Date CHOL 225 (H) 10/01/2024 TRIG 262 (H) 10/01/2024 HDL 48 10/01/2024 LDLCALC 125 (H) 10/01/2024 VLDL 52.4 10/01/2024 NONHDLC 177 (H) 10/01/2024 CHOLHDL 4.7 (H) 10/01/2024 TSH: Lab Results Component Value Date TSH 2.03 03/29/2025 PSA: Lab Results Component Value Date PSA 1.66 10/01/2024 Lab Results Component Value Date LDLCALC 125 (H) 10/01/2024 1. Elevated blood pressure reading 2. Left shoulder pain, unspecified chronicity 3. Hyperlipidemia, unspecified hyperlipidemia type 4. Decreased libido Assessment & Plan 1. Elevated blood pressure: - Blood pressure consistently elevated since early 2024, with today's reading at 144/88. - Discussed potential risks of persistent hypertension, including microscopic damage to vital organs (eyes, heart, liver, kidneys). - Prescribed low dose of amlodipine 2.5 mg. - Recommended lifestyle modifications (dietary changes, regular exercise). - Advised to monitor salt intake and avoid ibuprofen due to its potential to exacerbate hypertension. - Patient is to follow-up in 4 weeks to reevaluate blood pressure. 2. Left shoulder pain: - Reports intermittent severe pain in left shoulder, affecting daily activities. - X-ray showed no acute fracture, dislocation, or arthritis. - Recommended physical therapy and strengthening exercises. - Advised to switch from ibuprofen to extra strength Tylenol for pain management due to lower impact on blood pressure. 3. Decreased libido: - Testosterone levels checked in 03/2025 and found to be normal. - Thyroid levels also normal. - Discussed use of Viagra, clarified it would not increase blood pressure and might help lower it slightly. - Will consider referral to urology 4. Cholesterol management: - Requested lab order for cholesterol check. - Provided lab order for cholesterol levels check today. 5. Health maintenance: - Due for pneumonia vaccine but declined at this time. - Received influenza vaccine either last year or the year before, experienced discomfort in arm afterward. Follow-up: - Scheduled follow-up visit in 4 weeks to monitor response to medication. FOLLOW-UP: Follow up in about 4 weeks (around 06/24/2025). Kendall Flores NP ADULT MEDICINE [address] Today's documentation was made using voice recognition software.This note may contain grammatical errors secondary to this software. documented in this encounter Plan of Treatment Upcoming Encounters Date Type Department Care Team (Late st Contact Info) Description 06/24/2025 3:00 PM EDT Office Visit [address] [phone] Kendall Flores NP [address] [place] [address] 06/28/2025 2:00 PM EDT Evaluation [address] [phone] Adwoa Mcknight, PT Scheduled Orders Name Type Priority Associated Diagnoses Orde r Schedule Hepatic function panel Lab Routine Hyperlipidemia, unspecified hyperlipidemia type Left shoulder pain, unspecified chronicity Elevated blood pressure reading 1 Occurrences starting 05/27/2025 until 05/27/2026 Scheduled Referrals Name Type Priority Associated Diagnoses Orde r Schedule Ambulatory referral to Physical Therapy and Athletic Training Outpatient Referral Routine Hyperlipidemia, unspecified hyperlipidemia type Left shoulder pain, unspecified chronicity Elevated blood pressure reading 1 Occurrences starting 05/27/2025 until 05/27/2026 documented as of this encounter Goals Goal Patient Goal Type Associated Problems Recent Progress Patient-Stated? Author TABLE SAW OPERATOR LTG General No Smitha Matthews, TABLE SAW OPERATOR Note: Pt will consume least restrictive PO diet without changes to medical or respiratory status to maintain adequate oral nutrition hydration TABLE SAW OPERATOR [facility] General No Smitha Matthews, TABLE SAW OPERATOR Note: Pt will participate in MBS Pt will participate with development of personalized HEP to perform 4-5xs/wk with min assist for modifications Pt will consume recommended diet textures and utilize swallow strategies independently documented as of this encounter Visit Diagnoses Diagnosis Elevated blood pressure reading- Primary Elevated blood pressure reading without diagnosis of hypertension Left shoulder pain, unspecified chronicity Hyperlipidemia, unspecified hyperlipidemia type Decreased libido documented in this encounter Discontinued Medications Medication Sig Discontinue Reason Start Date End Da te lidocaine (LIDODERM) 5 % patchIndications:Acute pain of right knee Apply 1 patch topically 1 (one) time each day. Remove & discard patch within 12 hours or as directed by MD. Therapy completed 10/01/2024 05/27/2025 amoxicillin-clavulanate (AUGMENTIN) 875-125 mg per tablet Take 1 tablet by mouth 2 (two) times a day. for 10 days Therapy completed 09/27/2024 05/27/2025 documented as of this encounter Additional Health Concerns Assessment Noted Time PHQ-9 Depression Total Score: 0 10/01/19 25 11:00 AM EST documented as of this encounter Care Teams Local Tanker Truck Driver Relationship Specialty Start Date End Date Courtney Potts MD [address] [place] [address] PCP - General Internal Medicine 07/10/21 documented as of this encounter
--- NOTE | ~2025-06-01 | XR_ITS ---
CLINICAL HISTORY: pain and swelling 3 views left hand Comparison: DX/SR - XR HAND 3 OR MORE VIEWS LEFT - 10/26/24 09:27 EST Findings: No fractures, subluxations or dislocations. Stable small ossific densities base of the 2nd and 3rd proximal phalanges ulnar side. No periostitis or bony destruction. Joint intervals are preserved. No erosive disease. Small osteophyte base of the 1st distal phalanx. Ulnar styloid preserved. Normal bone mineralization and soft tissues. Small geodes involving the trapezium and scaphoid stable. No radiopaque foreign body. Impression: 1. No acute osseous abnormalities This document has been electronically signed by: Ferdinand Siegel MD on 06/01/2025 12:52:40
--- NOTE | ~2025-06-01 | XR_ITS ---
CLINICAL HISTORY: pain and swelling 4 views left wrist Comparison: CR - XR HAND LT MIN 3V - 06/01/25 11:59 EDT DX/SR - XR HAND 3 OR MORE VIEWS LEFT - 10/26/24 09:27 EST DX - XR HAND LT MIN 3V - 10/05/24 13:36 EST Findings: No carpal bone fractures or carpal malalignment. Distal radiocarpal joint intact. Radial and ulnar styloid preserved. No bony erosive changes. Stable geodes base of the 3rd metacarpal bone as well as the scaphoid and trapezium. Bone mineralization and soft tissues within normal limits. No radiopaque foreign body. Impression: 1. No acute osseous abnormality This document has been electronically signed by: Ferdinand Siegel MD on 06/01/2025 12:53:03
[2025-06-01 11:22] VITALS: BP 157/89; PULSE 86; RESP 16; TEMP 36.2; O2SAT 97; BMI 27.3
--- NOTE | 2025-06-01 11:24 | ED_ITS ---
HPI - General Adult General Chief complaint: Extremity Injury, Upper Stated complaint: l hand pain Time Seen by Provider: 06/01/25 13:29 Source: patient, family (Family member at bedside), RN notes reviewed and old records reviewed Mode of arrival: ambulatory Limitations: no limitations History of Present Illness ED Provider: ALAN Miner HPI narrative: 65-year-old male with medical history of asthma, HLD presents to the ED due to 1 day of left hand pain. Patient states he woke up this morning with swelling and pain in left hand. 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 Denies history of gout, fevers or chills Related Data Home Medications ?Medication ?Instructions ?Recorded ?Confirmed atorvastatin 40 mg tablet mg PO DAILY 10/05/24 Previous Rx's ?Medication ?Instructions ?Recorded cyclobenzaprine 10 mg tablet 10 mg PO TID PRN muscle s pasm #10 07/23/20 tabs loratadine 10 mg tablet (Claritin) 10 mg PO DAILY PRN allergies #14 06/08/21 tabs albuterol sulfate 90 mcg/actuation 1 inh inhalation QI D PRN shortness 12/08/22 aerosol inhaler (ProAir HFA) of breath or wheezing #8. 5 grams amoxicillin 875 mg-potassium 1 tab PO BID 10 days #20 tabs 09/27/24 clavulanate 125 mg tablet prednisone 20 mg tablet 20 mg PO BID 5 days #10 tabs 06/01/25 Allergies Allergy/AdvReac Type Severity Reaction Status Date / Time No Known Allergies Allergy Verified 06/01/25 11:23 Review of Systems 2 Review of Systems: CONST: Negative for fever, body aches and chills. HENT: Negative for neck pain/stiffness, headache, congestion, sore throat, swelling. EYES: Negative for discharge/pain or vision changes. RESP: Negative for cough/hemoptysis and shortness of breath. CV: Negative chest pain, difficulty breathing, palpitations. ABD: Negative pain, nausea, vomiting. : Negative increase frequency, dysuria, blood in urine or stool. MUSC: Negative for muscle aches, edema. POS pain/swelling of L hand SKIN: Negative rash, lesions/sores. NEURO: Negative headache, dizziness, weakness. Yes all other systems are reviewed and are negative PMFSH Past Medical History Attestation statement: The following information was validated with the patient. Source: old records reviewed and nursing notes reviewed Medical History Asthma Hyperlipidemia Social History Social History (Updated 12/04/24 @ 14:14 by Heavenly Levin DO) Patient Tobacco Use Status: Tobacco use Unknown Advance Directives: No Advance Directives Information Provided: No Physical Exam ED Vital Signs: Vital Signs - 24 hr 06/01/25 11:22 06/01/25 13:00 Temperature 97.2 F 98.7 F Pulse Rate 86 75 Respiratory Rate 16 19 Blood Pressure 157/89 H 146/84 H Pulse Oximetry 97 99 Oxygen Delivery Method Room Air Room Air BMI result Body Mass Index 27.3 GENERAL APPEARANCE: ?AxOx4, generally well-appearing, no acute distress. HEENT: ?NC, AT. MMM. EOMI, clear conjunctiva, oropharynx clear. NECK: ?Supple without lymphadenopathy.? No stiffness or restricted ROM. HEART:? Normal rate and regular rhythm, normal S1/S2, no m/r/g LUNGS:? CTAB, moving air well. No crackles or wheezes are heard. EXTREMITIES: ?Without cyanosis, clubbing or edema. TTP over dorsal and ventral distal wrist, ROM intact however does have pain with flexion, and rotation of the wrist, no erythema, mild edema, no warmth, no overlying ecchymosis or abrasions, radial pulses 2+, SILT, appropriate capillary refill time. NEUROLOGICAL: ?Grossly nonfocal. Alert and oriented, moving all 4 extremities. Observed to ambulate with normal gait. Skin: ?Warm and dry without any rash. Course Course Course Narrative: This is a rapid medical exam performed by Travis Carmen NP: Additional HPI, ROS, PE not included below will be deferred to primary provider. Patient is a 65y/o right hand dominant male presenting with complaint of left hand and wrist pain and swelling since yesterday. Denies known injury. Uses pneumatic tools, saws, etc for work. Denies hx of gout. Plan: labs, xray Medications Administered Discontinued Medications Generic Name Dose Route Start Last Admin Trade Name Freq PRN Reason Stop Dose Admin Acetaminophen 975 mg 06/01/25 14:30 06/01/25 15:03 Acetaminophen 325 Mg Tablet PO 06/01/25 14:31 975 mg ONCE ONE Administration Ketorolac Tromethamine 30 mg 06/01/25 14:30 06/01/25 15:03 Ketorolac Tromethamine 30 Mg/Ml Vial IM 06/01/25 14:31 30 mg ONCE ONE Administration Prednisone 40 mg 06/01/25 14:30 06/01/25 15:02 Prednisone 20 Mg Tablet PO 06/01/25 14:31 40 mg ONCE ONE Administration Medical Decision Making Medical Decision Making MDM Narrative: 65-year-old male with medical history of asthma, HLD presents to the ED due to 1 day of left hand pain. Patient states he woke up this morning with swelling and pain in left hand. 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 Denies history of gout, fevers or chills TTP over dorsal and ventral distal wrist, ROM intact, can make a fist, however does have pain with flexion, and rotation of the wrist, no erythema, mild edema, no warmth, no overlying ecchymosis or abrasions, radial pulses 2+, SILT, appropriate capillary refill time, compartments soft Labs without leukocytosis/leukopenia, H&H stable, inflammatory markers WNL, uric acid WNL, no evidence of electrolyte abnormality XR L hand and wrist without acute fracture or dislocation however does reveal stable geodes, and stable small ossific densities of the 2nd and 3rd proximal phalanges on the ulnar side. Patient without leukocytosis/leukopenia, afebrile, is able to range the hand although with some pain, compartments soft, hand and wrist without erythema, warmth, mild edema. No indication for antibiotics at this time, we will treat for gout with a 5 day course of 40 mg prednisone. I counseled patient to alternate 500 mg of Tylenol 400 mg ibuprofen for additional pain relief. I encouraged patient to follow up with the primary care provider. Patient is in agreement with the plan. Differential Diagnosis Differential Diagnoses: The differential diagnosis associated with the presentation includes Septic arthritis Hand fracture Wrist fracture Cellulitis Gout Admission/Observation Consideration of admission/observation: Escalation of care including admission/observation considered Lab Data 06/01/25 12:01 06/01/25 12:01 Labs: Lab Results 06/01/25 Range/Units 12:01 WBC 6.3 (4.8-10.8) X10*3/uL RBC 5.29 (4.60-5.80) X10*6/uL Hgb 16.7 (14.0-18.0) g/dl Hct 46.8 (42.0-52.0) % MCV 88.5 (80.0-98.0) fL MCH 31.6 (27.0-33.0) pg MCHC 35.7 (31.0-36.0) g/dl RDW 12.1 (11.0-16.0) % Plt Count 217 (160-400) X10*3/uL MPV 8.4 L (9.4-12.4) fL Immature Gran % (Auto) 0.2 (0.0-0.4) % Neut % (Auto) 61.9 (45-73) % Lymph % (Auto) 26.9 (20-40) % [place] % (Auto) 7.7 (2-11) % Eos % (Auto) 3.0 (0-4) % Baso % (Auto) 0.3 (0-2) % Lymph # (Auto) 1.7 (1.2-4.9) X10*3/uL [place] # (Auto) 0.5 (0.1-1.2) X10*3/uL Eos # (Auto) 0.2 (0.0-0.4) X10*3/uL Baso # (Auto) 0.0 (0.0-0.2) X10*3/uL Abs Immat Gran (auto) 0.01 (0.00-0.03) X10*3/uL Absolute Neuts (auto) 3.9 (2.0-8.3) x10*3/uL Absolute Nucleated RBC 0.000 (0.0-0.012) X10*3/uL Nucleated RBC % (auto) 0.0 (0.0-0.2) /100WBC Sodium 139 (135-145) mmol/L Potassium 4.3 (3.3-5.1) mmol/L Chloride 107 (96-108) mmol/L Carbon Dioxide 26 (22-29) mmol/L Anion Gap 10 L (12-20) BUN 13 (9-16) mg/dL Creatinine 0.99 (0.5-1.4) mg/dL Estim Creat Clear Calc 77.8 Estimated GFR > 60 Random Glucose 108 (60-115) mg/dL Uric Acid 4.5 (3.4-7.0) mg/dL Calcium 9.9 (8.4-10.2) mg/dL Total Bilirubin 0.9 (0.0-1.0) mg/dL AST 27 (5-37) U/L ALT 19 (0-40) U/L Alkaline Phosphatase 74 (39-117) U/L C-Reactive Protein 0.12 (< or = 0.50) mg/dL Total Protein 7.7 (6.5-8.0) g/dL Albumin 4.7 (3.5-5.0) g/dL Independent Interpretation I performed an independent interpretation of an: Plain X-Ray Interpretation: XR L hand without evidence of fracture or dislocation, I agree with the radiologist's interpretation XR L wrist without evidence of fracture dislocation, I agree with the radiologist's interpretation Radiology Impression Discussion of test interpretation with radiology: I have reviewed the radiologist's reading. Radiologist Impression: XR L hand Findings: No fractures, subluxations or dislocations. Stable small ossific densities base of the 2nd and 3rd proximal phalanges ulnar side. No periostitis or bony destruction. Joint intervals are preserved. No erosive disease. Small osteophyte base of the 1st distal phalanx. Ulnar styloid preserved. Normal bone mineralization and soft tissues. Small geodes involving the trapezium and scaphoid stable. No radiopaque foreign body. Impression: 1. No acute osseous abnormalities This document has been electronically signed by: Ferdinand Siegel MD on 06/01/2025 12:52:40 Dictated By: Ferdinand Siegel MD Signed By: <Electronically signed by Ferdinand Siegel MD in OV> 06/01/25 1253 XR L wrist Findings: No carpal bone fractures or carpal malalignment. Distal radiocarpal joint intact. Radial and ulnar styloid preserved. No bony erosive changes. Stable geodes base of the 3rd metacarpal bone as well as the scaphoid and trapezium. Bone mineralization and soft tissues within normal limits. No radiopaque foreign body. Impression: 1. No acute osseous abnormality This document has been electronically signed by: Ferdinand Siegel MD on 06/01/2025 12:53:03 Dictated By: Ferdinand Siegel MD Signed By: <Electronically signed by Ferdinand Siegel MD in OV> 06/01/25 5841 Independent Historian Clinical information obtained from an independent historian. History obtained from or confirmed by: Other (Family member at bedside corroborating history) External Record Review External record reviewed: Inpatient record, Office record and Outpatient record Prescription Management I considered prescription management with: Antibiotic I considered antibiotic therapy however patient without leukocytosis/leukopenia, afebrile, physical exam negative for warmth, or erythema, no indication for antibiotic treatment at this time. Chronic Conditions Patient?s care impacted by: Other (Asthma) Discharge Plan Discharge Clinical Impression: Gout Patient Disposition: Home, Self-Care Instructions: Gout (ED) Additional Instructions: You were evaluated in the ED today due to left hand pain. Your lab work was negative for infection, your inflammatory markers were negative. Your physical exam was reassuring as this is not an infectious processes there was no warmth, or redness to the hand. Your symptoms are most likely due to gout. You are being prescribed a 5 day course of 40 mg prednisone to treat the inflammation. Additionally please take 500 mg of Tylenol and 400 mg of ibuprofen every 6 hours to manage pain. You can ice the area, elevate the area with light compression to manage pain. You are being given a wrist splint, please wear this at night while sleeping, and during the day to protect the wrist while you are healing. Please follow up with your primary care doctor to ensure resolution of symptoms. Please return to the emergency department if you experience fevers over 100.4?, worsening pain of the left hand, redness or warmth of the left hand, decreased sensation of the hand, or any new/worsening/concerning symptoms. Prescriptions: New prednisone 20 mg tablet 20 mg PO BID 5 Days Qty: 10 0RF No Action cyclobenzaprine 10 mg tablet 10 mg PO TID PRN (Reason: muscle spasm) Qty: 10 0RF loratadine [Claritin] 10 mg tablet 10 mg PO DAILY PRN (Reason: allergies) Qty: 14 0RF albuterol sulfate [ProAir HFA] 90 mcg/actuation HFA aerosol inhaler 1 inh inhalation QID PRN (Reason: shortness of breath or wheezing) Qty: 8.5 0RF amoxicillin-pot clavulanate 875-125 mg tablet 1 tab PO BID 10 Days Qty: 20 0RF atorvastatin 40 mg tablet PO DAILY Print Language: Luxembourgish
[2025-06-01 12:08] LABS: MANUAL DIFF FLAG NO
[2025-06-01 12:10] LABS: Hematocrit 46.8 % (42.0-52.0); Hemoglobin 16.7 g/dl (14.0-18.0); Imm Gran Abs Auto 0.01 X10*3/uL (0.00-0.03); Imm Gran Pct Auto 0.2 % (0.0-0.4); Lymphocytes Absolute Auto 1.7 X10*3/uL (1.2-4.9); Mean Corpuscular HGB Conc 35.7 g/dl (31.0-36.0); Mean Corpuscular Hemoglobin 31.6 pg (27.0-33.0); Mean Corpuscular Volume 88.5 fL (80.0-98.0); NRBC Abs Auto 0.000 X10*3/uL (0.0-0.012); NRBC Pct Auto 0.0 /100WBC (0.0-0.2); Platelet Count 217 X10*3/uL (160-400); Red Blood Count 5.29 X10*6/uL (4.60-5.80); White Blood Count 6.3 X10*3/uL (4.8-10.8)
[2025-06-01 12:35] LABS: Alanine Aminotransferase 19 U/L (0-40); Albumin Level 4.7 g/dL (3.5-5.0); Alkaline Phosphatase 74 U/L (39-117); Anion Gap 10 (12-20); Aspartate Amino Transferase 27 U/L (5-37); Blood Urea Nitrogen 13 mg/dL (9-16); Calcium 9.9 mg/dL (8.4-10.2); Carbon Dioxide 26 mmol/L (22-29); Chloride 107 mmol/L (96-108); Creatinine Clr Calc Pharmacy 77.8; Estimated Glomerular Filt Rate > 60; Potassium 4.3 mmol/L (3.3-5.1); Sodium 139 mmol/L (135-145); Total Protein 7.7 g/dL (6.5-8.0); Uric Acid 4.5 mg/dL (3.4-7.0)
--- OUTSIDE RECORDS SUMMARY | 2025-06-01 12:36 | XMS_ITS | Clinical Summary ---
Author Organization [address] Address [address] [place] [phone] Phone Care Team Providers Care Counseling Department Chair Name Role Phone Courtney Potts MD Primary Care Provider [phone] Allergies No known active allergies Medications atorvastatin (LIPITOR) 40 mg tabletIndications: Mixed hyperlipidemia,Enc ounter for screening for cardiovascular disorders TAKE 1 TABLET BY MOUTH 1 TIME EACH DAY. 90 tablet 1 03/27/20 25 Active cholecalciferol (VITAMIN D-3) 25 mcg (1,000 unit) tabletIndications: Vitamin D deficiency TAKE 1 TABLET (1,000 UNITS TOTAL) BY MOUTH DAILY 90 tablet 1 03/27/20 25 Active amLODIPine (NORVASC) 2.5 mg tablet Take 1 tablet (2.5 mg total) by mouth 1 (one) time each day. 30 each 11 05/27/20 25 026 Active lidocaine (LIDODERM) 5 % patchIndications:A cute pain of right knee Apply 1 patch topically 1 (one) time each day. Remove & discard patch within 12 hours or as directed by . 10 patch 10/01/19 25 025 Discontin ued(Thera py completed ) amoxicillin-clavul anate (AUGMENTIN) 875-125 mg per tablet Take 1 tablet by mouth 2 (two) times a day. for 10 days 09/27/19 25 025 Discontin ued(Thera py completed ) Active Problems Problem Noted Date Diagnosed Date [...] Encounters Date Type Department Care Team Description 05/27/2025 2:15 PM EDT Office Visit [address] [phone] Kendall Flores NP Elevated blood pressure reading (Primary Dx); Left shoulder pain, unspecified chronicity; Hyperlipidemia, unspecified hyperlipidemia type; Decreased libido 03/26/2025 1:45 PM EDT - 03/26/2025 11:59 PM EDT Hospital Encounter [address] [phone] Left shoulder pain, unspecified chronicity Discharge Disposition: Home or Self Care 03/26/2025 1:30 PM EDT Office Visit [address] [phone] Courtney Potts MD Hyperlipidemia, unspecified hyperlipidemia type (Primary Dx); Elevated blood pressure reading; Left shoulder pain, unspecified chronicity; Anxiety; Decreased libido from Last 3 Months Immunizations Name Administration [...] F) 05/27/2025 2:26 PM EDT Respiratory Rate 20 03/26/2025 12:5 6 PM EDT Oxygen Saturation 99% 05/27/2025 2:2 6 PM EDT Inhaled Oxygen Concentration - - Weight 87.1 kg (192 lb) 05/27/2025 2:26 PM EDT Height 175.3 cm (5' 9 ) 05/27/2025 2:26 PM EDT Body Mass Index 28.35 05/27/2025 2:26 PM EDT Plan of Treatment Upcoming Encounters Date Type Department Care Team (Late st Contact Info) Description 06/24/2025 3:00 PM EDT Office Visit Adult Medicine [facility] [place] [address] [place], [place] [phone] Kendall Flores, MARINE ENGINE MACHINIST APPRENTICE [address] [place], [place] 06/28/2025 2:00 PM EDT Evaluation [facility] [address] [facility] [address] [place] [phone] Adwoa Mcknight, SP Health Maintenance Due Date Last Done Comments Social Influencers of Health Screening 08/15/2022 Cholesterol Screening (Lipid Panel) 10/01/2029 10/01/2024, 06/17/2023 Colorectal Cancer Screening: Colonoscopy 03/05/2032 03/05/2022 DTaP,Tdap,and Td Vaccines (3 - Td or Tdap) 09/27/2034 09/27/2024, 09/30/2016 RSV Immunization Adult Patients (1 - 1-dose 75+ series) 02/25/2036 COVID-19 Vaccine Discontinued 01/30/2021, 12/05/2020 Hepatitis C Screening Addressed 10/12/2021 Overri dden with the intention of not completing the topic Influenza Vaccine Discontinued 05/27/2023, 08/27/2022 Depression Screening Completed 10/01/2024 HIB Vaccines Aged Out No longer eligi [...] age to complete this topic Meningococcal B Vaccine Aged Out No l onger eligible based on patient's age to complete this topic Pneumococcal Vaccine: 50+ Years Discontinued RSV Immunization Patients Under 20 months Aged Out No longer eligible b ased on patient's age to complete this topic Varicella Vaccines Aged Out No longer eligible based on patient's age to complete this topic Zoster Vaccines Discontinued Goals Goal Patient Goal Type Associated Problems Recent Progress Patient-Stated? Author [employer] LOADING SUPERVIS[employer] [facility] General Smitha Romero, AIRFREIGHT LOADING SUPERVISOR Note: Pt will consume least restrictive PO diet without changes to medical or respiratory status to maintain adequate oral nutrition hydration [employer] LOADING SUPERVISOR [facility] General No Smitha Matthews, AIRFREIGHT LOADING SUPERVISOR Note: Pt will participate in MBS Pt will participate with development of personalized HEP to perform 4-5xs/wk with min assist for modifications Pt will consume recommended diet textures and utilize swallow strategies independently Procedures Procedure Name Priority Date/Time Associated Diagnosis Comments TESTOSTERONE FREE, BIOAVAILABLE AND TOTAL Routine 03/29/2025 8:12 AM EDT Decreased libido THYROID STIMULATING HORMONE WITH REFLEX TO FREE T4 AND FREE T3 Routine 03/29/2025 8:12 AM EDT Decreased libido XR SHOULDER 2+ VIEWS LEFT Routine 03/26/2025 1:55 PM EDT Left shoulder pain, unspecified chronicity LIPID PANEL WITH REFLEX TO DIRECT LDL Routine 10/01/2024 11:39 AM EST Mixed hyperlipidemia Encounter for screening for cardiovascular disorders from Last 3 Months or Most Recently Relevant to Health Maintenance Results * Thyroid stimulating hormone with reflex to free t4 and free t3 (03/29/2025 8:12 AM EDT) TSH 2.03 0.40 - 4.00 mcIU/mL LAB CHEMISTRY METHOD 03/29/2025 10:42 AM EDT [facility] ([facility] Blood Venous blood specimen / Unknown Venipuncture / Unknown 03/29/2025 8:12 AM EDT 03/29/2025 8:12 AM EDT us Courtney Potts MD LAB BLOOD ORDERABLES Final Resul t [facility] [address] [place] [address], [place] [phone] * Testosterone free, bioavailable and total (03/29/2025 8:12 AM EDT) Testosterone 461 229 - 902 ng/dL LAB CHEMISTRY METHOD 03/29/2025 11:09 AM EDT [facility] Testosterone, Free 7.6 4.6 - 22.4 ng/dL LAB CHEMISTRY METHOD 03/29/2025 11:09 AM EDT [facility] Testosterone, Bioavailable 178 110 - 575 ng/dL LAB CHEMISTRY METHOD 03/29/2025 11:09 AM EDT [facility] Sex Hormone Binding 46.9 See Comment nmol/L LAB CHEMISTRY METHOD 03/29/2025 11:09 AM EDT [facility] Comment: FEMALES: pre-menopausal 10.8 - >180 post-menopausal 23.2 - 159.1 MALES: 21-49 years 14.6 - 94.6 50-89 years 21.6 - 113.1 CHILDREN: No established reference range Over the counter supplements containing high doses of biotin may interfere with this assay. If interference is suspected, patients should be retested after refraining from biotin supplements for 72 hours. Albumin 4.3 3.2 - 5.0 g/dL LAB CHEMISTRY METHOD 03/29/2025 11:09 AM EDT [facility] Blood Venous blood specimen / Unknown Venipuncture / Unknown 03/29/2025 8:12 AM EDT 03/29/2025 8:12 AM EDT us Courtney Potts MD LAB BLOOD ORDERABLES Final Resul t [facility] [address] [place] [address], [place] [phone] * XR Shoulder 2+ Views Left (03/26/2025 1:55 PM EDT) Anatomical Region Laterality Modality Upper Extremities, Shoulder Left Radi ographic Imaging 03/26/2025 5:40 PM EDT Impressions 03/26/2025 5:41 PM EDT No acute fracture or dislocation of the left shoulder. -------- FINAL REPORT -------- Dictated By: Stella Galan Dictated Date: 03/26/2025 17:40 ET Assigned Physician: Stella Galan Reviewed and Electronically Signed By: Stella Galan Signed Date: 03/26/2025 17:41 ET Workstation ID: [id number] Transcribed By: Self Edit Transcribed Date: 03/26/2025 17:40 ET Narrative 03/26/2025 5:41 PM EDT HISTORY: pain TECHNIQUE: 4 views of the left shoulder COMPARISON: None FINDINGS: No acute fracture or dislocation is seen. There is no evidence of malalignment. The AC joint is intact. Procedure Note Stella Galan MD - 03/26/2025 HISTORY: pain TECHNIQUE: 4 views of the left shoulder COMPARISON: None FINDINGS: No acute fracture or dislocation is seen. There is no evidence ofmalalignment. The AC joint is intact. IMPRESSION: No acute fracture or dislocation of the left shoulder. -------- FINAL REPORT -------- Dictated By: Stella Galan Dictated Date: 03/26/2025 17:40 ET Assigned Physician: Stella Galan Reviewed and Electronically Signed By: Stella Galan Signed Date: 03/26/2025 17:41 ET Workstation ID: [id number] Transcribed By: Self Edit Transcribed Date: 03/26/2025 17:40 ET Courtney Potts MD IMG XR PROCEDURES Final Result * (ABNORMAL) Lipid panel with reflex to direct LDL (10/01/2024 11:39 AM EST) Pathologist [facility] Cholesterol 225(H) 0 - 200 mg/dL LAB CHEMISTRY METHOD 10/01/2024 3:57 PM EST [facility] Triglycerides 262(H) 0 - 150 mg/dL LAB CHEMISTRY METHOD 10/01/2024 3:57 PM EST [facility] HDL 48 >=40 mg/dL LAB CHEMISTRY METHOD 10/01/2024 3:57 PM EST [facility] LDL Calculated 125(H) 0 - 100 mg/dL LAB CHEMISTRY METHOD 10/01/2024 3:57 PM [facility] VLDL Cholesterol Thad 52.4 mg/dL LAB CHEMISTRY METHOD 10/01/2024 3:57 PM [facility] Non HDL Chol. (LDL+VLDL) 177(H) <145 mg/dL LAB CHEMISTRY METHOD 10/01/2024 3:57 PM [facility] Chol/HDL Ratio 4.7(H) 0.0 - 4.4 LAB CHEMISTRY METHOD 10/01/2024 3:57 PM [facility] Blood Venous blood specimen / Unknown Venipuncture / Unknown 10/01/2024 11:39 AM EST 10/01/2024 11:39 AM EST us Kendall Flores MARINE ENGINE MACHINIST APPRENTICE LAB BLOOD ORDERABLES Final R esult [facility] [address] [place] [address], from Last 3 Months or Most Recently Relevant to Health Maintenance Insurance [facility] [employer] Care Teams Counseling Department Chair Relationship Specialty Start Date End Date Courtney Potts MD [address] [place] [address] PCP - General Internal Medicine 07/10/21
[2025-06-01 13:00] VITALS: BP 146/84; PULSE 75; RESP 19; TEMP 37.1; O2SAT 99
[2025-06-01 16:12] VITALS: BP 140/82; PULSE 70; RESP 19; TEMP 36.8; O2SAT 99
== END 2025-06-01 16:12 | disposition home or self-care (01) ==
PROVIDERS: Registered Nurse Emergency; Emergency Provider Emergency Medicine Emergency Medical Services; PCP Internal Medicine
DX: M10.9 Gout, unspecified (principal); Z79.899 Other long term (current) drug therapy
CPT/HCPCS: 36415; 73110; 73130; 80053; 84550; 85025; 85652; 86140; 96372; 99284; J1885

== ENCOUNTER → 2025-06-01 11:26 | Outpatient (BNV) | payer OTHER, SELFPAY | PROVIDERS: PCP Internal Medicine; Visit Provider Radiology Diagnostic Radiology | DX: R22.32 Localized swelling, mass and lump, left upper limb (principal); M79.642 Pain in left hand; M25.532 Pain in left wrist | CPT/HCPCS: 73110; 73130 ==